=== PATIENT | female | born 1960 | race African-American/Black ===

== ENCOUNTER 2020-07-08 20:09 | Emergency (ER) | payer MEDICAID, SELFPAY ==
[2020-07-08 21:25] VITALS: BP 137/70; PULSE 93; RESP 18; TEMP 37.3; O2SAT 94; BMI 40.3
[2020-07-08 23:29] VITALS: BP 160/76; PULSE 81; RESP 20; O2SAT 93
[2020-07-08 23:48] VITALS: BP 160/76; PULSE 82; RESP 14; O2SAT 94
--- NOTE | 2020-07-09 00:12 | W.ED.URI ---
HPI - URI/Sore Throat General: Chief Complaint: Upper Respiratory Infection Stated Complaint: Sinus pain, congestion Time Seen by Provider: 07/08/20 23:32 Source: patient Mode of arrival: ambulatory Limitations: no limitations History of Present Illness: HPI Narrative: Patient is a 59-year-old female who presents to ED today with a complaint of sinus pain/pressure, ear pain/pressure, postnasal drainage, and a productive cough. Patient tells me she normally suffers from chronic allergic rhinitis that she treats with Claritin. She has not been running fevers. She is concerned she could have pneumonia. She is not complaining of chest pain or shortness of breath. She states drainage seems to be worse when she lies down. Denies sore throat. Denies fevers. MD elicited complaint: cough, nasal congestion and sinus pain Onset (ago): day(s) Consistency: constant Description of mucous: watery Able to tolerate fluids by mouth: Yes Associated symptoms: Reports ear or mastoid pain, nasal congestion and sinus pain; Deny abdominal pain, chills, chest pain, diarrhea, epistaxis, fever(s), headache(s), nausea or vomiting Treatments prior to arrival: none Review of Systems Const: Denies: fever(s), chills, body aches, change in appetite, change in weight, fatigue, malaise or night sweats Eyes: Denies: change in vision, blurry vision, photophobia, eye discomfort, eye discharge or seeing flashes ENMT: Reports: ear or mastoid pain, nasal congestion, post nasal drip and sinus pain; Denies: throat pain, enlarged tonsils, odynophagia, swelling of lips/tongue, oral sores, ear discharge, tinnitus, nasal discharge or epistaxis Card: Denies: chest pain, edema, swelling of feet/ankles or orthopnea Resp: Reports: productive cough and chest congestion; Denies: dyspnea, non-productive cough, wheezing, stridor, pain on inspiration or hemoptysis GI: Denies: abdominal pain, nausea, vomiting or diarrhea Musc: Denies: neck pain Skin/Breast: Denies: rash Neuro: Denies: headache(s) All/Imm: Denies: facial swelling or seasonal rhinorrhea Physical Exam Const: COMMON NORMALS: no acute distress, patient oriented x3, no limitations and alert GENERAL APPEARANCE: cooperative NUTRITIONAL APPEARANCE: obese ORIENTATION/CONSCIOUSNESS: Yes awake, Yes oriented to person, Yes oriented to place and Yes oriented to time HENMT: COMMON NORMALS: normocephalic, atraumatic, hearing grossly normal bilaterally, external ears normal, EAC's normal, Normal external nose present, Normal nasal mucous membranes and turbinates present and moist oral mucous membranes HEAD & SCALP: normal to inspection, normocephalic and atraumatic FACE & SINUS: normal facial exam and sinus tenderness frontal, ethmoid and maxillary NOSE: Normal external nose present, Normal nares present and Normal nasal mucous membranes and turbinates present EXTERNAL EAR: Yes external ears normal, Yes mastoids normal and Yes no periauricular adenopathy EXTERNAL AUDITORY CANAL: EAC's normal TYMPANIC MEMBRANE: TM abnormal (mild redness to L TM; serous otitis on R; otherwise normal) TEETH & GINGIVA: Yes edentulous THROAT: posterior oropharynx normal, tonsils normal and uvula midline Eye: COMMON NORMALS: Equal, round and reactive pupils present, EOMs intact bilaterally and conjunctivae normal GENERAL EYE: appearance normal, both eyes and all related structures CONJUNCTIVA: Yes conjunctivae normal PUPIL: Yes Equal, round and reactive pupils present Neck/C-Spine: COMMON NORMALS: full ROM, no lymphadenopathy and no meningeal signs Resp: COMMON NORMALS: normal respiratory effort and clear to auscultation bilaterally AUSCULTATION: clear to auscultation bilaterally Cardio: COMMON NORMALS: regular rate and regular rhythm RATE: regular rate Extremity: COMMON NORMALS: no calf tenderness and no pedal edema GENERAL: Yes normal exam except as noted Neuro: COMMON NORMALS: patient oriented x3 SENSORIUM/ORIENTATION: Yes alert, Yes oriented to person, Yes oriented to place and Yes oriented to time MENINGEAL SIGNS: Yes no meningeal signs Skin: COMMON NORMALS: no rashes or lesions noted GENERAL SKIN EXAM: no rashes or lesions noted Course Vital Signs: Vital signs: Vital Signs Temperature 99.2 F 07/08/20 21:25 Pulse Rate 82 07/08/20 23:48 Respiratory Rate 14 07/08/20 23:48 Blood Pressure 160/76 07/08/20 23:48 Pulse Oximetry 94 07/08/20 23:48 MDM - URI/Sore Throat Imaging Data^: CXR: Radiologist's impression: [address] [address] XRay Report Signed Patient: Valentina Chavez #: [id number] : 1960Acct#:[id number] Age/Sex: 59 / FADM Date: 07/08/20 Loc: ERRoom/Bed: Attending Dr: Ordering Provider/Ordering MD: Shreya Talamantes Date of Service: 07/09/20 Procedure(s): XR chest 1V portable [id number] Accession Number(s): [id number] Report Number: [id number] PROCEDURE INFORMATION: Exam: XR Chest, 1 View Exam date and time: 07/09/2020 12:23 AM Age: 59 years old Clinical indication: Cough TECHNIQUE: Imaging protocol: XR of the chest Views: 1 view. COMPARISON: No relevant prior studies available. FINDINGS: Lungs: Lungs are clear. Pleural space: There is no pleural effusion or pneumothorax. Heart/Mediastinum: There is mild enlargement of the cardiac silhouette. Bones/joints: Bones are unremarkable. XR/XR chest 1V portable [id number] IMPRESSION: No acute findings. Dictated By:Nilo Navarro MD Signed By:Nilo Navarro MDSigned Date/Time:07/09/2056 DD/ Discharge Plan Discharge Condition: Stable Coding Level of Care Code ED Diathermy Equipment Repairer for Chg Fwd Exam Comprehensive
[2020-07-09 01:37] VITALS: BP 129/73; PULSE 74; RESP 17; O2SAT 96
== END 2020-07-09 01:39 | disposition home or self-care (01) ==
PROVIDERS: Emergency Provider Physician Assistant
DX: R09.82 Postnasal drip (principal); R05 Cough
CPT/HCPCS: 12345; 71045; 99281; 99282

== ENCOUNTER 2021-02-13 20:55 | Emergency (ER) | payer MEDICAID, SELFPAY ==
[2021-02-13 22:31] VITALS: BP 196/101; PULSE 70; RESP 16; TEMP 37; O2SAT 94; BMI 39.5
--- NOTE | 2021-02-14 03:02 | XRR_ITS ---
PROCEDURE INFORMATION: Exam: XR Chest Exam date and time: 02/14/2021 3:02 AM Age: 60 years old Clinical indication: Cough TECHNIQUE: Imaging protocol: XR of the chest. Views: 1 view. COMPARISON: CR XR chest 1V portable [id number] 07/09/2020 12:20 AM FINDINGS: Lungs: Interval slightly increased markings in the medial right lung base. Short horizontal stranding density in the left lateral lung base again evident. No obvious Adalberto B lines. Still no consolidation. Pleural spaces: Still no pneumothorax or apparent pleural fluid. Heart/Mediastinum: Continued mild cardiomegaly. Left atrial enlargement still suspected. Vasculature: Aortic elongation again evident. Bones/joints: Screw and plate fixation device in the cervical spine. No apparent acute bony disease. XR/XR chest 1V portable [id number] IMPRESSION: 1. Continued mild cardiomegaly and possible left atrial enlargement. No obvious interval pulmonary edema. 2. Interval slightly increased markings in the medial right lung base questionably due to atelectasis. Minimal atelectasis or scar in the left lateral lung base still present. Other findings detailed above.
--- NOTE | 2021-02-14 03:02 | CTR_ITS ---
PROCEDURE INFORMATION: Exam: CT Head Without Contrast Exam date and time: 02/14/2021 3:02 AM Age: 60 years old Clinical indication: Prior surgery; Surgery type: Cervical fusion; Patient HX: Headache with pain turning neck side to side. ; Additional info: JEAN TECHNIQUE: Imaging protocol: Computed tomography of the head without contrast. Radiation optimization: All CT scans at this facility use at least one of these dose optimization techniques: automated exposure control; mA and/or kV adjustment per patient size (includes targeted exams where dose is matched to clinical indication); or iterative reconstruction. COMPARISON: No relevant prior studies available. RADIATION DOSE METRICS: Total DLP (mGy-cm): 879.31 FINDINGS: Limitations: Streak artifacts. Brain: Prominently increased CSF in the sella. One small focus of decreased density in the right centrum semiovale subjacent to the superior insular cortex; no mass effect in this area. No other apparent white matter disease. No suggestion of edema in the brain. No intracranial hemorrhage. Cerebral ventricles: No ventriculomegaly. Paranasal sinuses: Visualized sinuses unremarkable. Mastoid air cells: No suggestion of mastoid disease. Bones/joints: Old right medial orbital blowout fracture. No acute skull fracture. Soft tissues: Unremarkable. CT/CT head wo con* [id number] IMPRESSION: 1. No acute findings. One small focus of probable chronic ischemic change in the right centrum semiovale. 2. Probable empty sella. Old right medial orbital blowout fracture. Other findings detailed above. Radiation Dose CTDIVOL = (mGy): DLP = 879.31 (mGy-cm)
--- NOTE | 2021-02-14 03:03 | ECG_ITS ---
[facility] Test Date: 2021-02-14 Pat Name: Geno Chavez Department: Room: Gender: Female Cloth Measurer: : 1960 Requested By: Dave Wilson Order Number: [id number] Reading MD: LINDSEY PENNINGTON Measurements Intervals [place] Rate: 66 P: 82 NM: 166 QRS: 55 QRSD: 82 T: 59 QT: 396 QTc: 415 Interpretive Statements SINUS RHYTHM No previous ECG available for comparison Electronically Signed On 02-14-2021 22:20:45 CDT by LINDSEY PENNINGTON [id number]
--- NOTE | 2021-02-14 03:22 | ED_ITS ---
HPI - Headache General: Chief Complaint: Headache Stated Complaint: Headache can't turn neck Time Seen by Provider: 02/14/21 02:54 Source: patient Mode of arrival: ambulatory Limitations: no limitations History of Present Illness: HPI Narrative: 60-year-old female states that she woke up 3 days ago with left-sided neck pain. She states she felt like she had slept wrong and has had stiffness in her neck since then. States that it hurts anytime she tries to turn her head to the left and with palpation. States she is also developed a slight headache. States the pain goes into her shoulder as well. She states her blood pressure is high and states that her blood pressure gets high like this when she is in pain. She rates her neck pain a 7 out of 10 currently. Associated symptoms: Deny chest pain, fever(s), nausea, rash or vomiting Review of Systems Const: Denies: fever(s), chills, body aches or change in appetite Eyes: Denies: blurry vision or eye discomfort ENMT: Denies: throat pain or dental pain Card: Denies: chest pain Resp: Denies: dyspnea GI: Denies: abdominal pain, nausea, vomiting or diarrhea : Denies: dysuria Musc: Reports: neck pain Skin/Breast: Denies: rash Neuro: Reports: headache(s) Psych: Denies: depression Domenic/Lymph: Denies: easy bruising All/Imm: Denies: urticaria Physical Exam Const: COMMON NORMALS: no acute distress, patient oriented x3 and healthy appearing HENMT: COMMON NORMALS: normocephalic and atraumatic HEAD & SCALP: normocephalic and atraumatic Eye: COMMON NORMALS: Equal, round and reactive pupils present and EOMs intact bilaterally PUPIL: Yes Equal, round and reactive pupils present Neck/C-Spine: COMMON NORMALS: full ROM and supple OTHER: Point tender over left trapezius no midline neck tenderness Chest: COMMONS NORMALS: normal inspection of the chest and normal palpation of entire chest wall Resp: COMMON NORMALS: normal respiratory effort, No retractions, No use of accessory muscles and clear to auscultation bilaterally AUSCULTATION: clear to auscultation bilaterally Cardio: COMMON NORMALS: regular rate, regular rhythm and No murmurs present (Cardio) RATE: regular rate RHYTHM: regular rhythm GI: COMMON NORMALS: Normal to inspection, nondistended, normoactive bowel sounds present, Soft to palpation, non-tender and no masses PALPATION: Yes Soft to palpation Extremity: COMMON NORMALS: normal to inspection and full ROM Neuro: COMMON NORMALS: patient oriented x3, moves all extremities and no focal motor deficits Psych: COMMON NORMALS: mental status grossly normal, Normal thought process present and cooperative THOUGHT PROCESS: Normal thought process present Skin: COMMON NORMALS: no rashes or lesions noted and no wounds GENERAL SKIN EXAM: no rashes or lesions noted Course Vital Signs: Vital signs: Vital Signs Temperature 98.6 F 02/13/21 22:31 Pulse Rate 70 02/13/21 22:31 Respiratory Rate 22 H 02/14/21 03:39 Blood Pressure 196/101 02/13/21 22:31 Pulse Oximetry 94 02/13/21 22:31 MDM - Headache MDM Narrative: Medical decision making narrative: Patient presents with a left neck strain likely from sleeping on it wrong. She is point tender on her neck. She has no signs of meningitis or subarachnoid hemorrhage. She has no signs of carotid dissection. She feels much improved here and she is to ice her neck and will place her on Naprosyn Robaxin. Her blood pressure is improved here as well and is currently at 146/92. She is to follow-up with PCP and return if worsening. Lab Data: Labs: Lab Results 02/14/21 02/14/21 Range/Units 03:40 03:40 WBC 11.0 H (4.0-10.0) 10^3/ uL RBC 4.75 (4.1-5.3) 10^6/u L Hgb 13.0 (11.5-15.3) g/dL Hct 41.8 (37.0-47.0) % MCV 88.0 (81-99) fl MCH 27.4 L (28.0-34.0) pg MCHC 31.1 (30.0-36.0) g/dL RDW 15.3 H (12.1-15.1) % Plt Count 273 (130-400) 10^3/c mm MPV 9.8 (7.4-10.4) fL Neut % (Auto) 72.8 % Lymph % (Auto) 17.9 % [place] % (Auto) 6.5 % Eos % (Auto) 2.2 % Baso % (Auto) 0.2 % Neut # (Auto) 8.04 H (1.8-7.7) 10^3/u L Lymph # (Auto) 2.0 (0.8-4.8) 10^3/u L [place] # (Auto) 0.7 (0.2-0.9) 10^3/u L Eos # (Auto) 0.2 (0.0-0.8) 10^3/u L Baso # (Auto) 0.0 (0.0-0.1) 10^3/u L Nucleated RBC % (a uto) 0 % Nucleated RBCs # 0.0 /100WBC Sodium 138 (136-145) mmol/L Potassium 4.5 (3.5-5.1) mmol/L Chloride 101 (98-107) mmol/L Carbon Dioxide 29 (22-29) mmol/L Anion Gap 12.5 (5-19) BUN 12 (8-23) mg/dL Creatinine 0.5 (0.5-0.9) mg/dL GFR Calculation 151.8 H (90-130) mL/min Glucose 118 H (65-115) mg/dL Calculated Osmolal ity 287 (285-295) mOsm/k g Calcium 9.0 (8.5-10.5) mg/dL Total Bilirubin 0.4 (0.15-1.2) mg/dL AST 10 (0-32) U/L ALT 6 (0-33) U/L Alkaline Phosphata se 104 (35-105) IU/L Total Protein 7.8 (6.6-8.7) g/dL Albumin 3.9 (3.5-5.2) g/dL Globulin 3.9 (1.3-4.6) g/dL Imaging Data^: CXR: Attestation: I personally reviewed and interpreted this imaging study as follows: My impression: no acute abnormality CT Head: Attestation: I personally reviewed and interpreted this imaging study as follows: Radiologist's impression: [address] [address] [address] Scan Report Signed Patient: Geno Chavez Unit #: [id number] : 1960 Age/Sex: 60 / F ADM Date: 02/13/21 Loc: ER Room/Bed: Attending Dr: Ordering Provider/Ordering MD: Dave Wilson MD Date of Service: 02/14/21 Procedure(s): CT head wo con* [id number] Accession Number(s): [id number] Report Number: [id number] PROCEDURE INFORMATION: Exam: CT Head Without Contrast Exam date and time: 02/14/2021 3:02 AM Age: 60 years old Clinical indication: Prior surgery; Surgery type: Cervical fusion; Patient HX: Headache with pain turning neck side to side. ; Additional info: JEAN TECHNIQUE: Imaging protocol: Computed tomography of the head without contrast. Radiation optimization: All CT scans at this facility use at least one of these dose optimization techniques: automated exposure control; mA and/or kV adjustment per patient size (includes targeted exams where dose is matched to clinical indication); or iterative reconstruction. COMPARISON: No relevant prior studies available. RADIATION DOSE METRICS: Total DLP (mGy-cm): 879.31 FINDINGS: Limitations: Streak artifacts. Brain: Prominently increased CSF in the sella. One small focus of decreased density in the right centrum semiovale subjacent to the superior insular cortex; no mass effect in this area. No other apparent white matter disease. No suggestion of edema in the brain. No intracranial hemorrhage. Cerebral ventricles: No ventriculomegaly. Paranasal sinuses: Visualized sinuses unremarkable. Mastoid air cells: No suggestion of mastoid disease. Bones/joints: Old right medial orbital blowout fracture. No acute skull fracture. Soft tissues: Unremarkable. CT/CT head wo con* [id number] IMPRESSION: 1. No acute findings. One small focus of probable chronic ischemic change in the right centrum semiovale. 2. Probable empty sella. Old right medial orbital blowout fracture. Other findings detailed above. Radiation Dose CTDIVOL = (mGy): DLP = 879.31 (mGy-cm) Dictated By: Miriam Field MD Signed By: Miriam Field MD Signed Date/Time: 02/14/21 0500 DD/ 0459 EKG Data^: EKG 1: Attestation: I personally reviewed and interpreted this EKG as follows: EKG interpretation date: 02/14/21 EKG interpretation time: 04:02 Interpretation: nsr hr [address] or t wave abnormalities qrs 82 qtc 409 Discharge Plan Discharge Patient Disposition: Home Clinical Impression: Headache Qualifiers: Headache type: unspecified Headache chronicity pattern: unspecified pattern Intractability: not intractable Qualified Code(s): R51.9 - Headache, unspecified Neck muscle strain Qualifiers: Encounter type: initial encounter Qualified Code(s): S16.1XXA - Strain of muscle, fascia and tendon at neck level, initial encounter Condition: Stable Prescriptions: New methocarbamol 750 mg tablet 750 mg PO Q6H PRN (Reason: spasms) Qty: 20 RF: 0 Naprosyn 500 mg tablet 500 mg PO BID PRN (Reason: pain) Qty: 20 RF: 0 Discharge Orders: Discharge ED (Routine); Ordered 02/14/21 Ordered By: Dave Wilson Discharge Diet: Advance as tolerated Discharge Activity: Resume usual activity Patient Instructions: Spasmodic Torticollis (ED), Cervical Sprain (ED) Coding Level of Care Code ED Laundry Or Dry Cleaners Counter Clerk for Chg Fwd Exam Comprehensive
[2021-02-14] MEDS: ondansetron 2 mg/ML SDV 2 mL 4 MG IVP (03:33)
[2021-02-14 03:39] VITALS: RESP 22
[2021-02-14] MEDS: HYDROmorphone 1 mg/mL INJ 1 mL IVP (03:39)
[2021-02-14 04:06] LABS: Basophils % 0.2 %; Eosinophils # 0.2 10^3/uL (0.0-0.8); Eosinophils % 2.2 %; Hematocrit 41.8 % (37.0-47.0); Lymphocytes % 17.9 %; Mean Corpuscular HGB Conc 31.1 g/dL (30.0-36.0); Mean Corpuscular Hemoglobin 27.4 pg (28.0-34.0); Mean Platelet Volume 9.8 fL (7.4-10.4); Monocytes # 0.7 10^3/uL (0.2-0.9); Monocytes % 6.5 %; Neutrophils # 8.04 10^3/uL (1.8-7.7); Neutrophils % 72.8 %; Nucleated Red Blood Cells % 0 %; Platelet Count 273 10^3/cmm (130-400); Red Blood Count 4.75 10^6/uL (4.1-5.3); Red Cell Distribution Width 15.3 % (12.1-15.1)
[2021-02-14 04:34] LABS: Alanine Aminotransferase 6 U/L (0-33); Albumin Level 3.9 g/dL (3.5-5.2); Alkaline Phosphatase 104 IU/L (35-105); Anion Gap 12.5 (5-19); Aspartate Amino Transferase 10 U/L (0-32); Blood Urea Nitrogen 12 mg/dL (8-23); Carbon Dioxide 29 mmol/L (22-29); Chloride 101 mmol/L (98-107); Creatinine Clr Calc Pharmacy 149.2819; Globulin 3.9 g/dL (1.3-4.6); Glomerular Filtration Rate 151.8 mL/min (90-130); Glucose 118 mg/dL (65-115); Osmolality Calculated 287 mOsm/kg (285-295); Potassium 4.5 mmol/L (3.5-5.1); Sodium 138 mmol/L (136-145); Total Bilirubin 0.4 mg/dL (0.15-1.2); Total Protein 7.8 g/dL (6.6-8.7)
[2021-02-14 05:37] VITALS: BP 142/88; PULSE 82; RESP 20; TEMP 37.3; O2SAT 98
[2021-02-14 06:07] VITALS: BP 148/85; PULSE 80; RESP 20; TEMP 37.3; O2SAT 97
== END 2021-02-14 05:40 | disposition home or self-care (01) ==
PROVIDERS: Emergency Provider Emergency Medicine
DX: R51.9 Headache, unspecified (principal); S16.1XXA Strain of muscle, fascia and tendon at neck level, initial encounter; X58.XXXA Exposure to other specified factors, initial encounter
CPT/HCPCS: 70450; 71045; 80053; 85025; 93005; 96374; 96375; 99283; J1170; J2405

== ENCOUNTER 2021-07-30 20:36 | Emergency (ER) | payer MEDICAID, SELFPAY ==
[2021-07-30 20:57] VITALS: BP 102/55; PULSE 87; RESP 20; TEMP 36.8; O2SAT 96; BMI 41.0
--- NOTE | 2021-07-30 21:15 | XRR_ITS ---
PROCEDURE INFORMATION: Exam: XR Left Shoulder Exam date and time: 07/30/2021 9:15 PM Age: 60 years old Clinical indication: Pain; Shoulder; Left; Additional info: Fall TECHNIQUE: Imaging protocol: XR Left shoulder. Views: 2 or more views. COMPARISON: CR XR chest 1V portable [id number] 02/14/2021 3:59 AM FINDINGS: Bones/joints: Moderate AC osteoarthritis. No acute fracture or dislocation. Soft tissues: Normal. XR/XR shoulder LT min 2V* [id number] IMPRESSION: 1. No acute fracture or dislocation. 2. Moderate AC osteoarthritis.
--- NOTE | 2021-07-30 21:15 | CTR_ITS ---
PROCEDURE INFORMATION: Exam: CT Head Without Contrast Exam date and time: 07/30/2021 9:15 PM Age: 60 years old Clinical indication: Injury or trauma; Blunt trauma (contusions or hematomas); Patient HX: Headache after fall 4 days ago; Additional info: JEAN TECHNIQUE: Imaging protocol: Computed tomography of the head without contrast. Radiation optimization: All CT scans at this facility use at least one of these dose optimization techniques: automated exposure control; mA and/or kV adjustment per patient size (includes targeted exams where dose is matched to clinical indication); or iterative reconstruction. COMPARISON: CT head wo con* [id number] 02/14/2021 4:11 AM RADIATION DOSE METRICS: Total DLP (mGy-cm): 647.67 FINDINGS: Brain: No acute infarct or hemorrhage. Cerebral ventricles: No ventriculomegaly. Paranasal sinuses: Paranasal sinuses are clear. No air-fluid level. Mastoid air cells: Visualized mastoid air cells are clear. Bones/joints: No calvarial or skull base fracture. Soft tissues: Unremarkable. CT/CT head wo con* [id number] IMPRESSION: 1. No acute infarct or hemorrhage. 2. No calvarial or skull base fracture.
--- NOTE | 2021-07-31 01:19 | W.ED.GENADLT ---
HPI - General Adult General: Chief complaint: General Medical Stated complaint: Injury; Head,Shoulder\Arm SOB Blood Pressure irreg Time Seen by Provider: 07/31/21 01:15 Source: patient Mode of arrival: ambulatory Limitations: no limitations History of Present Illness: 60-year-old female who states that she fell on ice on Thursday states she hit her left shoulder and her head when she had fell. States she been having some headaches since then some slight nausea vomiting and some left shoulder pain from where she had hit. States she is also been around some people with COVID would like to be tested for COVID she has had some chills but denies any cough denies any shortness of breath denies any diarrhea Associated symptoms: Reports headache(s), nausea and vomiting; Deny chest pain, dyspnea or rash Review of Systems Const: Reports: body aches; Denies: fever(s), chills or change in appetite Eyes: Denies: blurry vision or eye discomfort ENMT: Denies: throat pain or dental pain Card: Denies: chest pain Resp: Denies: dyspnea GI: Reports: nausea and vomiting; Denies: abdominal pain or diarrhea : Denies: dysuria Musc: Denies: neck pain or back pain Skin/Breast: Denies: rash Neuro: Reports: headache(s) Psych: Denies: depression Domenic/Lymph: Denies: easy bruising All/Imm: Denies: urticaria Physical Exam Const: COMMON NORMALS: no acute distress, patient oriented x3 and healthy appearing HENMT: COMMON NORMALS: normocephalic and atraumatic HEAD & SCALP: normocephalic and atraumatic Eye: COMMON NORMALS: Equal, round and reactive pupils present and EOMs intact bilaterally PUPIL: Yes Equal, round and reactive pupils present Neck/C-Spine: COMMON NORMALS: full ROM and supple Chest: COMMONS NORMALS: normal inspection of the chest and normal palpation of entire chest wall Resp: COMMON NORMALS: normal respiratory effort, No retractions, No use of accessory muscles and clear to auscultation bilaterally AUSCULTATION: clear to auscultation bilaterally Cardio: COMMON NORMALS: regular rate, regular rhythm and No murmurs present (Cardio) RATE: regular rate RHYTHM: regular rhythm GI: COMMON NORMALS: Normal to inspection, nondistended, normoactive bowel sounds present, Soft to palpation, non-tender and no masses PALPATION: Yes Soft to palpation Extremity: COMMON NORMALS: normal to inspection and full ROM Neuro: COMMON NORMALS: patient oriented x3, moves all extremities and no focal motor deficits Psych: COMMON NORMALS: mental status grossly normal, Normal thought process present and cooperative THOUGHT PROCESS: Normal thought process present Skin: COMMON NORMALS: no rashes or lesions noted and no wounds GENERAL SKIN EXAM: no rashes or lesions noted Course Vital Signs: Vital signs: Vital Signs Temperature 98.2 F 07/30/21 20:57 Pulse Rate 87 07/30/21 20:57 Respiratory Rate 20 H 07/30/21 20:57 Blood Pressure 102/55 07/30/21 20:57 Pulse Oximetry 96 07/30/21 20:57 MDM - General Adult Medical Decision Making Patient presents here with closed head injury from a fall also some vomiting at home she states she believes she also may have a sinus infection would like a Z-Mau will place her on nausea medicine head CT and shoulder x-ray are normal she is stable for discharge she return if worsening. Lab Data Radiology Impressions Head CT 07/30/21 21:15 IMPRESSION: 1. No acute infarct or hemorrhage. 2. No calvarial or skull base fracture. Shoulder X-Ray 07/30/21 21:15 IMPRESSION: 1. No acute fracture or dislocation. 2. Moderate AC osteoarthritis. Discharge Plan Discharge Patient Disposition: Home Clinical Impression: Closed head injury Condition: Stable Prescriptions: New azithromycin 250 mg tablet See Rx Instructions .ROUTE .COMPLEX Qty: 6 0RF Rx Instructions: take 500 mg today (day 1), then 250 mg for 4 days (days 2-5) ondansetron 4 mg tablet,disintegrating 4 mg PO Q6H PRN (Reason: nausea and vomiting) Qty: 14 0RF No Action methocarbamol 750 mg tablet 750 mg PO Q6H PRN (Reason: spasms) Qty: 20 0RF Naprosyn 500 mg tablet 500 mg PO BID PRN (Reason: pain) Qty: 20 0RF Discharge Orders: Discharge ED (Routine); Ordered 07/31/21 Ordered By: Dave Wilson Discharge Diet: Advance as tolerated Discharge Activity: Resume usual activity Patient Instructions: Head Injury (ED) Coding Level of Care Code ED Laboratory Engineer for Pedrito Spence
[2021-07-31] MEDS: HYDROcodone-acetaminophen 5-325 mg Tablet 1 TAB PO (01:27)
[2021-07-31 01:37] VITALS: PULSE 64; RESP 20; O2SAT 93
[2021-08-01 13:02] LABS: Quest SARS-CoV-2 RNA NOT DETECTED (NOT DETECTED)
--- NOTE | 2021-08-01 18:07 | PC.NURSE ---
Has a non working number
== END 2021-07-31 01:48 | disposition home or self-care (01) ==
PROVIDERS: Emergency Provider Emergency Medicine
DX: S09.8XXA Other specified injuries of head, initial encounter (principal); W00.0XXA Fall on same level due to ice and snow, initial encounter; Z20.822 Contact with and (suspected) exposure to COVID-19
CPT/HCPCS: 70450; 73030; 87635; 99283

== ENCOUNTER 2022-12-13 12:35 | Outpatient (CLI) | payer MEDICAID, SELFPAY ==
--- NOTE | 2022-12-13 12:55 | XRR_ITS ---
PROCEDURE INFORMATION: Exam: XR Right Hand Exam date and time: 12/13/2022 12:56 PM Age: 62 years old Clinical indication: Pain; Hand; Right; Additional info: Right hand injury TECHNIQUE: Imaging protocol: Radiologic exam of the right hand. Views: 3 or more views. COMPARISON: No relevant prior studies available. FINDINGS: Bones/joints: Normal. Soft tissues: Normal. XR/XR hand RT min 3V* [id number] IMPRESSION: No acute findings.
== END 2022-12-13 12:36 | disposition home or self-care (01) ==
PROVIDERS: Visit Provider Registered Nurse Neonatal Intensive Care
DX: S69.91XA Unspecified injury of right wrist, hand and finger(s), initial encounter (principal); X58.XXXA Exposure to other specified factors, initial encounter
CPT/HCPCS: 73130

== ENCOUNTER 2024-06-03 14:26 | Emergency (ER) | payer SELFPAY ==
--- NOTE | 2024-06-03 14:31 | XR_ITS ---
WS: [id number] Exam: XR hand RT min 3V* [id number] Date/Time of Exam: 06/03/2024 2:36 PM Reason For Exam: injury Comparison 12/13/2022. No acute fracture. A ring obscures parts of the fourth proximal phalanx. Mild degenerative changes in the IP joints. Soft tissues are unremarkable. XR/XR hand RT min 3V* [id number] IMPRESSION: 1. No fracture or other significant finding.
[2024-06-03 14:58] VITALS: BP 194/97; PULSE 125; RESP 18; TEMP 36.7; O2SAT 96; BMI 33.3
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
[2024-06-03 17:51] VITALS: BP 155/99; PULSE 105; O2SAT 98
[2024-06-03 18:05] VITALS: BP 155/99; PULSE 105; O2SAT 98
--- NOTE | 2024-06-06 07:34 | DCPLANNER ---
greta cordero er f/u
== END 2024-06-03 18:05 | disposition home or self-care (01) ==
PROVIDERS: Emergency Provider Physician Assistant
DX: M54.2 Cervicalgia (principal); M25.531 Pain in right wrist; Z79.82 Long term (current) use of aspirin
CPT/HCPCS: 73130; 99283

== ENCOUNTER → 2024-08-30 14:59 | Outpatient (BNVA) | payer MEDICARE, SELFPAY | PROVIDERS: PCP Family Medicine; Visit Provider Family Medicine | DX: I10 Essential (primary) hypertension (principal); E11.9 Type 2 diabetes mellitus without complications | CPT/HCPCS: 80053; 80061; 83036; 84439; 84443; 85025 ==

== ENCOUNTER 2024-09-22 09:14 | Outpatient (CLI) | payer MEDICARE, SELFPAY ==
--- NOTE | 2024-09-22 09:00 | CT_ITS ---
WS: [id number] LDCT LUNG CANCER SCREENING HISTORY: screening TECHNIQUE: Axial imaging performed from the apices to 1 cm below the costophrenic angles. Coronal and sagittal reformats are submitted with axial MIP series. All CT scans at [facility] use at least one of these dose optimization techniques: automated exposure control; mA and/or kV adjustment per patient size (includes targeted exams where dose is matched to clinical indication); or iterative reconstruction. DLP: 113.31 mGy.cm DIvol: Mean CTDIvol: 2.80 (mGy) COMPARISON: None available. Diagnostic quality: Satisfactory Lungs: Linear atelectasis at the lingula. No pulmonary mass or nodule identified. No endobronchial lesions. Heart: Moderate cardiomegaly. Coronary artery calcifications.. Other findings: Pulmonary hypertension. Mild atherosclerosis aorta. No mediastinal or hilar adenopathy. Very mild thickening of the LEFT adrenal gland. CT/CT lung screening [id number] IMPRESSION: LUNG-RADS: 1S-Negative with Significant Findings FOLLOW UP: 12 Month: Continue annual screening with LDCT OTHER FINDINGS (S MODIFIER): Pulmonary hypertension.
== END 2024-09-22 09:15 | disposition home or self-care (01) ==
LOC: RAD 09:15
PROVIDERS: PCP Family Medicine; Visit Provider Family Medicine
DX: Z12.2 Encounter for screening for malignant neoplasm of respiratory organs (principal); F17.219 Nicotine dependence, cigarettes, with unspecified nicotine-induced disorders; J98.11 Atelectasis; I51.7 Cardiomegaly; I25.10 Atherosclerotic heart disease of native coronary artery without angina pectoris; I27.20 Pulmonary hypertension, unspecified; I70.0 Atherosclerosis of aorta; E27.8 Other specified disorders of adrenal gland
CPT/HCPCS: 71271

== ENCOUNTER → 2024-11-02 10:03 | Outpatient (BNVA) | payer MEDICARE, SELFPAY | PROVIDERS: PCP Family Medicine; Visit Provider Family Medicine | DX: Z12.4 Encounter for screening for malignant neoplasm of cervix (principal) | CPT/HCPCS: 87624 ==

== ENCOUNTER 2024-11-21 15:01 | Inpatient (IN) | payer MEDICARE, SELFPAY ==
[2024-11-21] VITALS (9 sets, daily range): BP systolic 122–170; BP diastolic 79–105; PULSE 89–101; RESP 16–22; TEMP 36.6–36.9; O2SAT 90–94; BMI 35.5
--- NOTE | 2024-11-21 15:18 | ECG_ITS ---
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 Measurements Intervals [place] Rate: 85 P: 67 VT: 161 QRS: 37 QRSD: 85 T: -18 QT: 375 QTc: 448 Interpretive Statements SINUS RHYTHM NONSPECIFIC ST & T-WAVE ABNORMALITY No previous ECG available for comparison Electronically Signed On 11-22-2024 11:36:24 CDT by Donta Robledo M.D. [email or web address]
--- NOTE | 2024-11-21 15:18 | XRR_ITS ---
PROCEDURE INFORMATION: Exam: XR Chest Exam date and time: 11/21/2024 3:20 PM Age: 64 years old Clinical indication: Pain; Angina pectoris; Additional info: Cp TECHNIQUE: Imaging protocol: Radiologic exam of the chest. Views: 1 view. COMPARISON: CT lung screening [id number] 09/22/2024 9:45 AM FINDINGS: Lungs: Mild hazy opacities of the lung bases. Pleural spaces: Unremarkable. No pleural effusion. No pneumothorax. Heart/Mediastinum: Stable moderate cardiomegaly. Bones/joints: Unremarkable. XR/XR chest 1V portable [id number] IMPRESSION: 1. Mild bibasilar opacities favor atelectasis. Infiltrate not excluded in the correct clinical setting. 2. Cardiomegaly.
--- NOTE | 2024-11-21 15:28 | ED_ITS ---
HPI - Weakness 2 General: Chief complaint: Weakness Stated complaint: sob Time Seen by Provider: 11/21/24 15:13 Source: patient Mode of arrival: ambulatory Limitations: no limitations History of Present Illness: 64-year-old female history of congestive heart failure states that over the last few weeks she had been having some dyspnea states she did have some generalized weakness as well. States dyspnea seems to be worse exertion she has no dyspnea in the room talking in full sentences pulse ox is normal. She has had some mild chest pains on the right side of her chest denies any vomiting or diarrhea Associated symptoms: Reports chest pain; Denies chills, dysuria, fever(s), headache(s), nausea or vomiting Review of Systems 2 Const: Denies: fever(s), chills, body aches or change in appetite ENMT: Denies: throat pain or dental pain Card: Reports: chest pain Resp: Reports: dyspnea GI: Denies: abdominal pain, nausea, vomiting or diarrhea : Denies: dysuria Musc: Denies: neck pain or back pain Skin/Breast: Denies: rash Neuro: Denies: headache(s) PFSH ED 2 PFSH: Medical History Right hand pain Trigger finger Moderate tobacco use disorder Panic anxiety syndrome Anxiety Moderate major depression Cannabis use disorder Obesity (BMI 35.0-39.9 without comorbidity) URI (upper respiratory infection) Sinusitis chronic, frontal Allergic rhinitis due to allergen Surgical History Hx of neck surgery two surgeries in mid Social History Smoking and tobacco/nicotine status: current every day tobacco/nicotine user cigarettes [ Other cigarette details: / PPD, 20PY] Alcohol intake: never Substance/Drug Use: current Substance/Drug use frequency: daily Physical Exam 2 Const: COMMON NORMALS: no acute distress, patient oriented x3 and healthy appearing HENMT: COMMON NORMALS: normocephalic and atraumatic HEAD & SCALP: n ormocephalic and atraumatic Eye: COMMON NORMALS: Equal, round and reactive pupils present and EOMs intact bilaterally PUPIL: Yes Equal, round and reactive pupils present Neck/C-Spine: COMMON NORMALS: full ROM and supple Chest: COMMONS NORMALS: normal inspection of the chest and normal palpation of entire chest wall Resp: COMMON NORMALS: normal respiratory effort, No retractions, No use of accessory muscles and clear to auscultation bilaterally AUSCULTATION: clear to auscultation bilaterally Cardio: COMMON NORMALS: regular rate, regular rhythm and No murmurs present (Cardio) RATE: regular rate RHYTHM: regular rhythm GI: COMMON NORMALS: Normal to inspection, nondistended, normoactive bowel sounds present, Soft to palpation, non-tender and no masses PALPATION: Yes Soft to palpation Extremity: COMMON NORMALS: normal to inspection and full ROM Neuro: COMMON NORMALS: patient oriented x3, moves all extremities and no focal motor deficits Psych: COMMON NORMALS: mental status grossly normal, Normal thought process present and cooperative THOUGHT PROCESS: Normal thought process present Skin: COMMON NORMALS: no rashes or lesions noted and no wounds GENERAL SKIN EXAM: no rashes or lesions noted Course 2 Vital Signs: Vital signs: Vital Signs Temperature 97.9 F 11/21/24 15:09 Pulse Rate 90 11/21/24 17:30 Respiratory Rate 22 H 11/21/24 17:30 Blood Pressure 168/86 11/21/24 17:30 Pulse Oximetry 90 11/21/24 17:30 Oxygen Delivery Me thod Room Air 11/21/24 17:30 MDM - Weakness Medical Decision Making Patient presents here with shortness of breath she has had hypoxia here tonight placed on [address] shows pulm edema she does have an elevated BNP likely new onset congestive heart failure no PE or pneumonia spoke to hospitalist will admit at this time Medical Records I reviewed the patient's medical records. Lab Data I reviewed the patient's lab results. 11/21/24 15:40 11/21/24 15:40 Radiology Impressions Chest X-Ray 11/21/24 15:18 IMPRESSION: 1. Mild bibasilar opacities favor atelectasis. Infiltrate not excluded in the correct clinical setting. 2. Cardiomegaly. Chest CTA 11/21/24 16:22 IMPRESSION: 1. No evidence of pulmonary embolism. 2. Diffuse ground-glass opacities with areas of mosaic attenuation throughout the lungs. Findings are nonspecific and can be seen with pulmonary edema and/or atypical infection in the acute setting. Findings may also be seen with air trapping from chronic small airways disease. 3. Mildly enlarged mediastinal lymph nodes may be reactive. Consider follow-up CT chest in 2-3 months to evaluate for improvement. 4. Mildly dilated main pulmonary artery can be seen with pulmonary hypertension. Laboratory Results WBC 6.77 10^3/uL (3.29-11.43) 11/21/24 15:40 RBC 4.34 10^6/uL (3.85-5.65) 11/21/24 15:40 Hgb 11.60 g/dL (11.27-16.99) 11/21/24 15:40 Hct 41.5 % (36-47) 11/21/24 15:40 MCV 95.6 fl (85-98) 11/21/24 15:40 MCH 26.7 pg (27-33) L 11/21/24 15:40 MCHC 28.0 g/dL (30-55) L 11/21/24 15:40 RDW 16.3 % (12.1-15.1) H 11/21/24 15:40 Plt Count 193 10^3/cmm (157-399) 11/21/24 15:40 MPV 9.8 fL (7.4-10.4) 11/21/24 15:40 Neut % (Auto) 68.1 % 11/21/24 15:40 Lymph % (Auto) 22.6 % 11/21/24 15:40 [place] % (Auto) 6.2 % 11/21/24 15:40 Eos % (Auto) 2.4 % 11/21/24 15:40 Baso % (Auto) 0.3 % 11/21/24 15:40 Neut # (Auto) 4.61 10^3/uL (1.8-7.7) 11/21/24 15:40 Lymph # (Auto) 1.5 10^3/uL (0.8-4.8) 11/21/24 15:40 [place] # (Auto) 0.4 10^3/uL (0.2-0.9) 11/21/24 15:40 Eos # (Auto) 0.2 10^3/uL (0.0-0.8) 11/21/24 15:40 Baso # (Auto) 0.0 10^3/uL (0.0-0.1) 11/21/24 15:40 Nucleated RBC % (auto) 0.3 % 11/21/24 15:40 Nucleated RBCs # 0.0 /100WBC 11/21/24 15:40 D-Dimer 2.22 ug/mLFEU (0-0.59) H 11/21/24 15:40 Sodium 139 mmol/L (136-145) 11/21/24 15:40 Potassium 4.3 mmol/L (3.5-5.1) 11/21/24 15:40 Chloride 103 mmol/L (98-107) 11/21/24 15:40 Carbon Dioxide 24 mmol/L (22-29) 11/21/24 15:40 Anion Gap 16.3 (5-19) 11/21/24 15:40 BUN 13 mg/dL (8-23) 11/21/24 15:40 Creatinine 0.5 mg/dL (0.5-0.9) 11/21/24 15:40 GFR Calculation 149.8 mL/min (90-130) H 11/21/24 15:40 Glucose 143 mg/dL (65-115) H 11/21/24 15:40 Calculated Osmolality 291 mOsm/kg (285-295) 11/21/24 15:40 Calcium 8.6 mg/dL (8.5-10.5) 11/21/24 15:40 Total Bilirubin 0.9 mg/dL (0.15-1.2) 11/21/24 15:40 AST 49 U/L (0-32) H 11/21/24 15:40 ALT 42 U/L (0-33) H 11/21/24 15:40 Alkaline Phosphatase 140 U/L (35-105) H 11/21/24 15:40 Troponin T Baseline 11 ng/L (0-10) H 11/21/24 15:40 NT-Pro-B Natriuret Pep 3027 pg/mL (0-125) H 11/21/24 15:40 Total Protein 6.7 g/dL (6.6-8.7) 11/21/24 15:40 Albumin 3.7 g/dL (3.5-5.2) 11/21/24 15:40 Globulin 3.0 g/dL (1.3-4.6) 11/21/24 15:40 Lipase 21 U/L (13-60) 11/21/24 15:40 All radiology interpretation(s) finalized by discharge EKG Data EKG 1: I personally reviewed and interpreted this EKG as follows: EKG interpretation date: 11/21/24 EKG interpretation time: 15:55 Interpretation: nsr hr [address] elevation qrs 85 qtc 417 Discharge Plan Discharge Patient Disposition: Admitted As Inpatient Clinical Impression: Pulmonary edema, Acute hypoxic respiratory failure Condition: Stable Coding Level of Care Code ED Outsole Rounder for Chg Fwd Related Data Home Medications ?Medication ?Instructions ?Recorded ?Confirmed aspirin 81 mg tablet,delayed 81 mg PO DAILY 06/17/22 0 11/02/24 release loratadine 10 mg tablet (Claritin) 10 mg PO DAILY 08/2011/02/24 Previous Rx's ?Medication ?Instructions ?Recorded acetaminophen 500 mg tablet 1,000 mg (2 x 500 mg) PO Q 8H PRN 01/04/23 (Tylenol Extra Strength) pain #30 tabs carvedilol 12.5 mg tablet 12.5 mg PO BID #180 tabs 09/13 meloxicam 15 mg tablet 15 mg PO DAILY #90 tabs 04/0 09/13 sertraline 50 mg tablet 50 mg PO DAILY #90 tabs 040 09/13 albuterol sulfate 90 mcg/actuation 2 puff inhalation Q 6H PRN 10/11/24 aerosol inhaler shortness of breath or wheez ing #8.5 grams cyclobenzaprine 10 mg tablet 10 mg PO TID #30 tabs 07/16 Allergies Allergy/AdvReac Type Severity Reaction Status Date / Time lisinopril Allergy ADR-Cough Verified 11/02/24 09:27
[2024-11-21 15:55] LABS: Basophils % 0.3 %; Eosinophils # 0.2 10^3/uL (0.0-0.8); Eosinophils % 2.4 %; Hematocrit 41.5 % (36-47); Lymphocytes # 1.5 10^3/uL (0.8-4.8); Lymphocytes % 22.6 %; Mean Corpuscular Hemoglobin 26.7 pg (27-33); Mean Corpuscular Volume 95.6 fl (85-98); Mean Platelet Volume 9.8 fL (7.4-10.4); Monocytes # 0.4 10^3/uL (0.2-0.9); Monocytes % 6.2 %; Neutrophils # 4.61 10^3/uL (1.8-7.7); Neutrophils % 68.1 %; Nucleated Red Blood Cells % 0.3 %; Platelet Count 193 10^3/cmm (157-399); Red Blood Count 4.34 10^6/uL (3.85-5.65); Red Cell Distribution Width 16.3 % (12.1-15.1); White Blood Count 6.77 10^3/uL (3.29-11.43)
[2024-11-21 16:11] LABS: D Dimer 2.22 ug/mLFEU (0-0.59)
[2024-11-21 16:15] LABS: Troponin(5th) Baseline 11 ng/L (0-10)
--- NOTE | 2024-11-21 16:22 | CTR_ITS ---
PROCEDURE INFORMATION: Exam: CTA Chest With Contrast Exam date and time: 11/21/2024 4:45 PM Age: 64 years old Clinical indication: Chest wall pain; Additional info: Cp TECHNIQUE: Imaging protocol: Computed tomographic angiography of the chest with contrast. Exam focused on the arteries. 3D rendering (Not supervised by radiologist): MIP and/or 3D reconstructed images were created by the technologist. Radiation optimization: All CT scans at this facility use at least one of these dose optimization techniques: automated exposure control; mA and/or kV adjustment per patient size (includes targeted exams where dose is matched to clinical indication); or iterative reconstruction. Contrast material: OMNIPAQUE 350; Contrast volume: 100 ml; Contrast route: INTRAVENOUS (IV); COMPARISON: CT lung screening [id number] 09/22/2024 9:45 AM RADIATION DOSE METRICS: Total DLP (mGy-cm): 509.18 FINDINGS: Pulmonary arteries: The main pulmonary artery is mildly dilated, measuring 3.1 cm in caliber. No filling defects to the level of the proximal subsegmental pulmonary arteries. Aorta: The thoracic aorta is nonaneurysmal with mild atherosclerotic calcifications. Lungs: Ground-glass opacities throughout the lungs bilaterally with areas of mosaic attenuation. Subsegmental atelectasis in the lingula. No focal consolidation. Pleural spaces: Unremarkable. No pneumothorax. No pleural effusion. Heart: Stable cardiomegaly. No pericardial effusion. Coronary arteries: Multivessel coronary artery calcifications. Lymph nodes: Mildly enlarged left periaortic lymph node measures 1.0 cm short axis, previously 0.7 cm. A lymph node slightly posteriorly measures 1.2 cm, previously 0.8 cm. A precarinal lymph node measures 0.9 cm, stable. Bones/joints: Unremarkable. No acute fracture. Soft tissues: Unremarkable. CT/CT angio chest PE protcl [id number] IMPRESSION: 1. No evidence of pulmonary embolism. 2. Diffuse ground-glass opacities with areas of mosaic attenuation throughout the lungs. Findings are nonspecific and can be seen with pulmonary edema and/or atypical infection in the acute setting. Findings may also be seen with air trapping from chronic small airways disease. 3. Mildly enlarged mediastinal lymph nodes may be reactive. Consider follow-up CT chest in 2-3 months to evaluate for improvement. 4. Mildly dilated main pulmonary artery can be seen with pulmonary hypertension.
[2024-11-21 16:25] LABS: Alanine Aminotransferase 42 U/L (0-33); Albumin Level 3.7 g/dL (3.5-5.2); Alkaline Phosphatase 140 U/L (35-105); Anion Gap 16.3 (5-19); Aspartate Amino Transferase 49 U/L (0-32); Blood Urea Nitrogen 13 mg/dL (8-23); Calcium 8.6 mg/dL (8.5-10.5); Carbon Dioxide 24 mmol/L (22-29); Chloride 103 mmol/L (98-107); Creatinine Clr Calc Pharmacy 83.5568; Glomerular Filtration Rate 149.8 mL/min (90-130); Glucose 143 mg/dL (65-115); Lipase 21 U/L (13-60); NT Pro B Type Natriuretic Pept 3027 pg/mL (0-125); Osmolality Calculated 291 mOsm/kg (285-295); Potassium 4.3 mmol/L (3.5-5.1); Sodium 139 mmol/L (136-145); Total Bilirubin 0.9 mg/dL (0.15-1.2); Total Protein 6.7 g/dL (6.6-8.7)
[2024-11-21] MEDS: iohexol 350 mg/mL 500 mL Btl (per mL) IV (16:47)
[2024-11-21] MEDS: FUROsemide 10 mg/mL SDV 10mL 60 MG IVP (17:30)
--- NOTE | 2024-11-21 17:46 | PM.HP ---
Providers/Chief Complaint Primary Care Provider: Jose Pelayo MD Chief Complaint: sob History of Present Illness Geno Dubose is a 64 year old female Medications/Allergies Home Medications ?Medication ?Instructions ?Recorded ?Confirmed ?Last Taken ?Type aspirin 81 mg tablet,delayed 81 mg PO DAILY 06/17/22 11/02/24 Unknown History release acetaminophen 500 mg tablet 1,000 mg (2 x 500 mg) PO Q8H PRN 01/04/23 11/02/24 Unknown Rx (Tylenol Extra Strength) pain #30 tabs loratadine 10 mg tablet (Claritin) 10 mg PO DAILY 08/30/24 11/02/24 Unknown History carvedilol 12.5 mg tablet 12.5 mg PO BID #180 tabs 09/22/24 11/02/24 Unknown Rx meloxicam 15 mg tablet 15 mg PO DAILY #90 tabs 09/22/24 11/02/24 Unknown Rx sertraline 50 mg tablet 50 mg PO DAILY #90 tabs 09/22/24 11/02/24 Unknown Rx albuterol sulfate 90 mcg/actuation 2 puff inhalation Q6H PRN 10/11/24 11/02/24 Unknown Rx aerosol inhaler shortness of breath or wheezing #8.5 grams cyclobenzaprine 10 mg tablet 10 mg PO TID #30 tabs 10/20/24 11/02/24 Unknown Rx Allergies Allergy/AdvReac Type Severity Reaction Status Date / Time lisinopril Allergy ADR-Cough Verified 11/02/24 09:27 PFSH Acute PFSH: Medical History Right hand pain Trigger finger Moderate tobacco use disorder Panic anxiety syndrome Anxiety Moderate major depression Cannabis use disorder Obesity (BMI 35.0-39.9 without comorbidity) URI (upper respiratory infection) Sinusitis chronic, frontal Allergic rhinitis due to allergen Surgical History Hx of neck surgery two surgeries in mid Social History Smoking and tobacco/nicotine status: current every day tobacco/nicotine user cigarettes [ Other cigarette details: 1/ PPD, 20PY] Alcohol intake: never Substance/Drug Use: current Substance/Drug use frequency: daily Vitals/I&O/Wt Last Vital Signs Temp 97.9 F 11/21/24 15:09 Pulse 90 11/21/24 17:30 Resp 22 H 11/21/24 17:30 BP 168/86 11/21/24 17:30 Pulse Ox 90 11/21/24 17:30 O2 Del Method Room Air 11/21/24 17:30 Weight last 48 hrs Weight 99.79 kg Data 11/21/24 15:40 11/21/24 15:40 A&P PDMP PDMP Reviewed: Not Reviewed Coding Level of Care Code Acute Code for Chg Fwd
--- NOTE | 2024-11-21 18:11 | USCV_ITS ---
Geno Dubose Age: 64 Gender: F : 1960 Exam Date: 11/21/2024 18:47 Ordering Phys: Spenser Awad MD Technologist: CLAY [place]am Location[place] [facility] [place]ication: SOB, history of CHF BP: 163 / 91 HR: 91 Rhythm: Mostly sinus rhythm with strings of Atrial fibrillation Technical Quality: Adequate MEASUREMENTS (Male / Female) Normal Values 2D ECHO LV Diastolic Diameter PLAX 4.7 cm 4.2 - 5.9 / 3.9 - 5.3 cm IVS Diastolic Thickness 1.4 cm 0.6 - 1.0 / 0.6 - 0.9 cm IVS Systolic Thickness 1.6 cm LVPW Diastolic Thickness 1.4 cm 0.6 - 1.0 / 0.6 - 0.9 cm LVPW Systolic Thickness 1.5 cm LVOT Diameter 2.4 cm LV Ejection Fraction 2D Teich 33.5 % LV Ejection Fraction MOD 4C 36.4 % LV Ejection Fraction MOD 2C 22.4 % LV Ejection Fraction 2C AL 22.3 % LA Diameter 4.8 cm Aorta at Sinotubular Diameter 2.6 cm IVC Diameter 1.9 cm M-MODE LA Ao Ratio MM 2.0 AV Cusp Separation MM 1.8 cm DOPPLER AV Peak Velocity 131.0 cm/s LVOT Peak Velocity 72.0 cm/s AV Area Cont Eq vti 2.4 cm squared AV Area Cont Eq pk 2.4 cm squared MV Peak Velocity 170.0 cm/s MV Area PHT 4.5 cm squared Mitral E to A Ratio 1.8 TV Peak Velocity 284.0 cm/s TR Peak Velocity 315.0 cm/s TR Peak Gradient 39.7 mmHg TV Peak E Velocity 51.0 cm/s PV Peak Velocity 89.0 cm/s FINDINGS Left Ventricle Left ventricle is normal in size. LV systolic function is moderately reduced with EF of 35-40%. Moderate global hypokinesis Right Ventricle Normal in size and function Right Atrium Normal in size Left Atrium Severely dilated Mitral Valve Moderate mitral annular calcification. Moderate mitral regurgitation Aortic Valve Aortic valve is thickened. No significant stenosis. Mild aortic regurgitation Tricuspid Valve Mild tricuspid regurgitation. RVSP is 45-50mmHg. This is consistent with moderate pulmonary hypertension. Pulmonic Valve Mild pulmonic regurgitation. Pericardium Normal Aorta Normal in size IVC Appears to be normal CONCLUSIONS LV systolic function is moderately reduced with EF of 35-40% Severely dilated left atrium Moderate mitral regurgitation Mild aortic regurgitation Mild tricuspid regurgitation Moderate pulmonary hypertension Mild pulmonic regurgitation No comparison studies are available. Donta Robledo MD (Electronically Signed) Final Date: 22 November 2024 08:58 S
--- NOTE | 2024-11-21 18:11 | PM.HP ---
Providers/Chief Complaint Admitting Physician: Collette Hensley MD Primary Care Provider: Jose Pelayo MD Chief Complaint: sob History of Present Illness Geno Dubose is a 64 year old female with a past medical history of hypertension, obesity, history of smoking in the past, who presents [facility] due to cough, sinus symptoms, shortness of breath, lower extremity edema. Currently patient is alert oriented x 3, following all commands, she is sitting up to side of bed, complaining of feeling short of breath, with lower extreme edema. She tells me her symptoms started a few weeks ago when she was diagnosed with congestion, placed on antibiotics, however she continues to have symptomatology persisting to sinusitis she was given multiple doses of antibiotics but continues to have a cough, congestion, she also reports shortness of breath, shortness of breath exertion, orthopnea, paroxysmal nocturnal dyspnea and edema, she adamantly denies any chest pain or palpitations Review of Systems Const: Denies: fever(s) or chills Card: Reports: swelling of feet/ankles; Denies: chest pain Resp: Reports: dyspnea Medications/Allergies Home Medications ?Medication ?Instructions ?Recorded ?Confirmed ?Last Taken ?Type aspirin 81 mg tablet,delayed 81 mg PO DAILY 06/17/22 11/02/24 Unknown History release acetaminophen 500 mg tablet 1,000 mg (2 x 500 mg) PO Q8H PRN 01/04/23 11/02/24 Unknown Rx (Tylenol Extra Strength) pain #30 tabs loratadine 10 mg tablet (Claritin) 10 mg PO DAILY 08/30/24 11/02/24 Unknown History carvedilol 12.5 mg tablet 12.5 mg PO BID #180 tabs 09/22/24 11/02/24 Unknown Rx meloxicam 15 mg tablet 15 mg PO DAILY #90 tabs 09/22/24 11/02/24 Unknown Rx sertraline 50 mg tablet 50 mg PO DAILY #90 tabs 09/22/24 11/02/24 Unknown Rx albuterol sulfate 90 mcg/actuation 2 puff inhalation Q6H PRN 10/11/24 11/02/24 Unknown Rx aerosol inhaler shortness of breath or wheezing #8.5 grams cyclobenzaprine 10 mg tablet 10 mg PO TID #30 tabs 10/20/24 11/02/24 Unknown Rx Allergies Allergy/AdvReac Type Severity Reaction Status Date / Time lisinopril Allergy ADR-Cough Verified 11/02/24 09:27 PFSH Acute PFSH: Medical History Right hand pain Trigger finger Moderate tobacco use disorder Panic anxiety syndrome Anxiety Moderate major depression Cannabis use disorder Obesity (BMI 35.0-39.9 without comorbidity) URI (upper respiratory infection) Sinusitis chronic, frontal Allergic rhinitis due to allergen Surgical History Hx of neck surgery two surgeries in mid Social History Smoking and tobacco/nicotine status: current every day tobacco/nicotine user cigarettes [ Other cigarette details: 06/25 PPD, 20PY] Alcohol intake: never Substance/Drug Use: current Substance/Drug use frequency: daily Vitals/I&O/Wt Last Vital Signs Temp 97.9 F 11/21/24 15:09 Pulse 90 11/21/24 17:30 Resp 22 H 11/21/24 17:30 BP 168/86 11/21/24 17:30 Pulse Ox 90 11/21/24 17:30 O2 Del Method Room Air 11/21/24 17:30 Weight last 48 hrs Weight 99.79 kg Physical Exam Const: COMMON NORMALS: no acute distress and patient oriented x3 Neck/C-Spine: COMMON NORMALS: no JVD Lymph: LYMPHATIC: no lymphadenopathy noted Resp: COMMON NORMALS: normal respiratory effort, No retractions and No use of accessory muscles AUSCULTATION: crackles Cardio: COMMON NORMALS: regular rate, regular rhythm, S1 normal heart sound present and S2 normal heart sound present RATE: regular rate RHYTHM: regular rhythm HEART SOUNDS: S1 normal heart sound present and S2 normal heart sound present GI: COMMON NORMALS: Normal to inspection, nondistended, normoactive bowel sounds present, Soft to palpation and non-tender Extremity: NARRATIVE EXTREMITY EXAM: 1+ edema Neuro: COMMON NORMALS: patient oriented x3, CN's II-XII intact bilaterally and moves all extremities Psych: COMMON NORMALS: mental status grossly normal Data 11/21/24 15:40 11/21/24 15:40 A&P Assessment and plan (1) Acute hypoxic respiratory failure: (2) Pneumonia: (3) CHF (congestive heart failure): Plan Acute hypoxic respiratory failure CT/CT angio chest PE protcl [id number] IMPRESSION: 1. No evidence of pulmonary embolism. 2. Diffuse ground-glass opacities with areas of mosaic attenuation throughout the lungs. Findings are nonspecific and can be seen with pulmonary edema and/or atypical infection in the acute setting. Findings may also be seen with air trapping from chronic small airways disease. 3. Mildly enlarged mediastinal lymph nodes may be reactive. Consider follow-up CT chest in 2-3 months to evaluate for improvement. 4. Mildly dilated main pulmonary artery can be seen with pulmonary hypertension. - Multifactorial - Concern for atypical pneumonia - Concerns for fluid overload given elevated BNP, diastolic CHF Plan - Monitor cardiac stepdown unit - Pro-Abdirizak, CRP, respiratory viral panel, sputum cultures, blood cultures - Has received 60 mg IV push Lasix, will daily dose of Lasix - Cardiac echo - Monitor respiratory status - DuoNeb - Full code - Lovenox for DVT prophylaxis PDMP PDMP Reviewed: Last Reviewed 11/21/24 18:08 by Spenser Awad MD Attestations Medical Necessity Statement*: Patient requires hospitalization, inpatient, greater than 2 midnights, for acute hypoxic respiratory failure, pneumonia, CHF Diagnoses Acute hypoxic respiratory failure J96.01 Pneumonia J18.9 CHF (congestive heart failure) I50.9
[2024-11-21 18:33] LABS: Troponin 5 2HR 12.81 ng/L (0-10); Troponin 5 2HR Delta 1.81 ABS# (0-10)
--- NOTE | 2024-11-21 18:46 | PC.NURSE ---
pt placed on 2L NC. Dr. Wilson aware.
[2024-11-21 18:53] LABS: C Reactive Protein 19.1 mg/L (0.0-4.9)
[2024-11-21 19:00] LABS: Procalcitonin 0.05 ng/mL (0-0.5)
--- NOTE | 2024-11-21 19:04 | PC.NURSE ---
pt report called to [facility].
[2024-11-21] MEDS: AZITHROMYCIN ADD-Vantage 500 MG in 0.9% NaCl ADD-Vantage 250 ML 250 MG IV (20:07)
[2024-11-21] MEDS: cefTRIAXone 1,000 mg SDV 1000 MG IVP (20:08)
[2024-11-21] MEDS: pantoprazole 40 mg SDV IVP (20:08)
[2024-11-21] MEDS: enoxaparin 40 mg/0.4 mL Syringe SUBCUT (20:09)
[2024-11-21] MEDS: atorvastatin 40 mg Tablet PO (20:09)
[2024-11-21 20:30] LABS: Chol HDL Ratio 4.47 mg/dL (0.0-4.40); Cholesterol 152 mg/dL (0-200); Ferritin 141 ng/mL (15-150); HDL Cholesterol 34 mg/dL (60-100); LDL Cholesterol Calculated 95 mg/dL (50-129); LDL HDL Ratio 2.79 RATIO (0.00-3.22); Lipase 26 U/L (13-60); Thyroid Stimulating Hormone 3.41 uIU/mL (0.27-4.20); Triglycerides 115 mg/dL (0-150)
[2024-11-21] MEDS: albuterol 2.5 mg/3 mL Neb INHALATION (21:00)
--- NOTE | 2024-11-21 21:16 | PC.NURSE ---
pt arrived to [facility] at 1953, vital signs stable, patient continet, admission assesment completed and medications started.
--- NOTE | 2024-11-21 21:18 | ECG_ITS ---
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
[2024-11-21 22:23] LABS: Troponin 5 6HR 13.77 ng/L (0-10); Troponin 5 6HR Delta 2.77 ng/L (0-12)
[2024-11-22] VITALS (9 sets, daily range): BP systolic 91–165; BP diastolic 58–108; PULSE 68–102; RESP 14–33; TEMP 36.1–36.9; O2SAT 86–95
[2024-11-22 04:56] LABS: Basophils % 0.2 %; Eosinophils # 0.2 10^3/uL (0.0-0.8); Eosinophils % 2.2 %; Hematocrit 38.1 % (36-47); Lymphocytes # 1.8 10^3/uL (0.8-4.8); Lymphocytes % 22.1 %; Mean Corpuscular Hemoglobin 26.9 pg (27-33); Mean Corpuscular Volume 86.8 fl (85-98); Monocytes # 0.5 10^3/uL (0.2-0.9); Monocytes % 6.4 %; Neutrophils # 5.59 10^3/uL (1.8-7.7); Neutrophils % 68.6 %; Nucleated Red Blood Cells % 0.4 %; Platelet Count 234 10^3/cmm (157-399); Red Blood Count 4.39 10^6/uL (3.85-5.65); Red Cell Distribution Width 16.3 % (12.1-15.1); White Blood Count 8.15 10^3/uL (3.29-11.43)
[2024-11-22 05:25] LABS: Chloride 101 mmol/L (98-107); Potassium 3.6 mmol/L (3.5-5.1); Sodium 143 mmol/L (136-145)
[2024-11-22 05:44] LABS: Hepatitis A Antibody IgM Non-Reactive (Nonreactive); Hepatitis B Core IgM Non-Reactive (Nonreactive); Hepatitis B Surface Antigen Non-Reactive (Nonreactive); Hepatitis C Virus Antibody Non-Reactive (Nonreactive)
[2024-11-22 05:45] LABS: NT Pro B Type Natriuretic Pept 3995 pg/mL (0-125)
[2024-11-22 05:57] LABS: Alanine Aminotransferase 40 U/L (0-33); Albumin Level 3.6 g/dL (3.5-5.2); Alkaline Phosphatase 144 U/L (35-105); Anion Gap 17.6 (5-19); Aspartate Amino Transferase 42 U/L (0-32); Blood Urea Nitrogen 14 mg/dL (8-23); Carbon Dioxide 28 mmol/L (22-29); Creatinine Clr Calc Pharmacy 83.5568; Globulin 3.5 g/dL (1.3-4.6); Glomerular Filtration Rate 149.8 mL/min (90-130); Glucose 108 mg/dL (65-115); Magnesium 1.9 mg/dL (1.7-2.3); Osmolality Calculated 297 mOsm/kg (285-295); Total Bilirubin 0.8 mg/dL (0.15-1.2); Total Protein 7.1 g/dL (6.6-8.7)
[2024-11-22] MEDS: albuterol 2.5 MG/0.5 ML NEB INHALATION ×3 (07:19→20:13)
--- NOTE | 2024-11-22 09:31 | PC.CHAP ---
Pastoral Care Encounter/Spiritual Assessment Type of Contact [] Declined picker / packer visit [] Patient/Family/Request visit [] Outpatient visit [] Follow-up visit [] Physician referral [] Code/Alert [] Routine visit [] Staff referral [] Actively dying [] Patient sleeping [] Family support [] [x] Out of room [] Palliative care [] [] Receiving care in room [] Pre-surgical visit [] Trauma [] Long length of stay [] ICU visit [] Other: Relational/Emotional Strength [] Patient feels connected with others/family/visitors/staff [] Distress [] Loneliness/isolation [] Abandonment Spirituality of Patient [] Person of Melonie [] Attends Episcopal of their Melonie [] Believes in Prayer [] Reads Bible or Restorationism materials [] There are Spiritual issues to be addressed Cement Sprayer Helper Interventions [] Prayer [] Active listening [] Non-anxious presence [] Spiritual/emotional support [] Crisis/trauma care [] Spiritual counseling [] Bereavement support [] Provided bereavement packet [] Provided Bible/devotional materials [] Provided toy/stuffed animal, coloring book to patient or family member [] Provided Communion [] Anointing/[place] [] Salvation [] Completed spiritual assessment [] Other: Impact on Illness or Injury [] Angry [] Fearful [] Anxious [] Often cries [] Exhaustion [] Unable to work [] Unable to attend protestant [] Unable to walk/stand [] Unable to read [] Unable to drive [] Unable to eat/drink [] Unable to sleep [] Unable to be with family [] Patient intubated [] Other: Summary Time spent with patient
[2024-11-22] MEDS: aspirin 81 mg EC Tablet PO (09:34)
[2024-11-22] MEDS: sertraline 50 mg Tablet PO (09:34)
[2024-11-22] MEDS: FUROsemide 10 mg/mL SDV 4mL 40 MG IVP ×2 (09:35→21:24)
[2024-11-22] MEDS: carvedilol 12.5 mg Tablet PO ×2 (09:35→17:30)
--- NOTE | 2024-11-22 09:37 | PC.PHAR ---
Pt states she has not taken medications since Thursday.
[2024-11-22 10:07] LABS: Bilirubin Urine Negative (Negative); Blood Urine Negative (Negative); Glucose Urine UA Negative (Normal); Ketones Urine Negative (Negative); Leukocyte Esterase Urine Negative (Negative); Nitrate Urine Negative (Negative); Protein Urine Negative (Negative); Specific Gravity, Urine 1.018 (1.005-1.030); Urine Appearance Clear (CLEAR); pH Urine 7.5 (5-7)
[2024-11-22 10:10] LABS: Add Urine Microscopic? YES; Bacteria Urine None Seen /hpf; Hyaline Casts Urine 0-4 /lpf; RBC Urine 0-2 /hpf (0-2); Squamous Epithelial Cell Urine 0-5 /hpf (0-5); WBC Urine 0-5 /hpf (0-5)
[2024-11-22 10:35] LABS: Urine Color Yellow (Yellow)
--- NOTE | 2024-11-22 12:59 | P.PN_ITS ---
Subjective 2 Subjective: Patient was seen this morning, she is alert and oriented x 3, following all commands does report shortness of breath no fevers, no chills, no cough, no chest pain Vitals/I&O/Wt Last Vital Signs Temp 97.9 F 11/22/24 10:50 Pulse 74 11/22/24 10:50 Resp 21 H 11/22/24 10:50 BP 127/76 11/22/24 10:50 Pulse Ox 92 11/22/24 10:50 O2 Del Method Nasal Cannula 11/22/24 10:50 O2 Flow Rate 2 11/22/24 07:38 11/21/24 11/22/24 11/22/24 22:59 06:59 14:59 Intake Total 350 / 350 240 / 240 Output Total 250 / 250 400 / 650 Balance 100 / 100 -400 / -300 240 / 240 Weight last 48 hrs Weight 101.151 kg Weight 99.79 kg Physical Exam 2 Const: COMMON NORMALS: no acute distress and patient oriented x3 Resp: COMMON NORMALS: normal respiratory effort, No retractions and No use of accessory muscles AUSCULTATION: crackles and rales Cardio: COMMON NORMALS: regular rate, regular rhythm, S1 normal heart sound present and S2 normal heart sound present RATE: regular rate RHYTHM: r egular rhythm HEART SOUNDS: S1 normal heart sound present and S2 normal heart sound present GI: COMMON NORMALS: Normal to inspection, nondistended, normoactive bowel sounds present and non-tender Extremity: COMMON NORMALS: no pedal edema Neuro: COMMON NORMALS: patient oriented x3 Psych: COMMON NORMALS: mental status grossly normal Data 11/22/24 03:53 11/22/24 03:53 Micro: Microbiology 11/21/24 19:34 Blood Culture - Preliminary Blood SPECIMEN COLLECTED 11/21/24 19:32 Blood Culture - Preliminary Blood SPECIMEN COLLECTED A&P Assessment and plan (1) Acute hypoxic respiratory failure: (2) Pneumonia: (3) CHF (congestive heart failure): (4) Systolic CHF: Plan Acute hypoxic respiratory failure CT/CT angio chest PE protcl [id number] IMPRESSION: 1. No evidence of pulmonary embolism. 2. Diffuse ground-glass opacities with areas of mosaic attenuation throughout the lungs. Findings are nonspecific and can be seen with pulmonary edema and/or atypical infection in the acute setting. Findings may also be seen with air trapping from chronic small airways disease. 3. Mildly enlarged mediastinal lymph nodes may be reactive. Consider follow-up CT chest in 2-3 months to evaluate for improvement. 4. Mildly dilated main pulmonary artery can be seen with pulmonary hypertension. - Multifactorial - Concern for atypical pneumonia - Concerns for fluid overload given elevated BNP, systolic chf echo CONCLUSIONS LV systolic function is moderately reduced with EF of 35-40% Severely dilated left atrium Moderate mitral regurgitation Mild aortic regurgitation Mild tricuspid regurgitation Moderate pulmonary hypertension Mild pulmonic regurgitation No comparison studies are available. Plan - Monitor cardiac stepdown unit -sputum cultures, blood cultures - Has received 60 mg IV push Lasix, lasix 40mg iv bid - Cardiac echo as above, given diminished, will consult cardiology - Monitor respiratory status - DuoNeb - Full code - Lovenox for DVT prophylaxis Plan for today continue IV diuresis, continue IV antibiotics, cardiology consulted PDMP PDMP Reviewed: Last Reviewed 11/21/24 18:08 by Spenser Awad MD Attestations 2 Medical Necessity Statement*: Patient requires hospitalization for acute hypoxic respiratory failure secondary to CHF, pneumonia, new onset heart failure Diagnoses Acute hypoxic respiratory failure J96.01 Pneumonia J18.9 CHF (congestive heart failure) I50.9 Systolic CHF I50.20
--- NOTE | 2024-11-22 15:20 | P.CONIM_ITS ---
<Statement entered by Shannen Martines MD - 11/22/24 20:17> Patient was evaluated and cared for in conjunction with an advanced practice practitioner. I personally examined the patient and reviewed the chart and all pertinent data including imaging, telemetry, and laboratory results. I discussed the patient in detail with the advanced practice practitioner. Please see their note for complete H&P testing result and agreed upon plan of care for the patient. 64-year-old female past medical history significant as below presented with worsening of shortness of breath noted to have new onset of heart failure with severely depressed ejection fraction. She started responding good to diuretics and feeling better. She is not sure whether she can lay flat in the bed. GENERAL: Patient is alert, awake and oriented x3. HEART: Regular S1 and S2. No murmur, rub or gallop. LUNGS: Decreased breath sounds bilaterally. CENTRAL NERVOUS SYSTEM: Grossly nonfocal. EXTREMITIES: Lower extremities with out edema bilaterally. New onset of heart failure systolic type decompensated Severely depressed left ventricle ejection fraction 35% by echocardiogram Continue IV Lasix Continue beta-una We will add Entresto Once euvolemic will proceed with left heart cath Providers/Reason For Consult 2 Consulting Physician/Specialty*: Dr. Matrines Reason for Consult*: New onset systolic heart failure Requesting Physician: Dr. Awad Attending Physician: Spenser Awad MD Primary Care Provider: Jose Pelayo MD History of Present Illness History of Present Illness Geno Dubose is a 64 year old female with history of hypertension, obesity, current smoker, who presented to the ER yesterday for what she says is severe shortness of breath and a cough. She states that she could tell she had some swelling in her legs as well. She states that they started a few weeks ago and she was placed on antibiotics and treated for possible bronchitis. She states that her shortness of breath on exertion persisted and worsened. She denies any family history or personal history of heart disease. She denies any recent chest pressure or chest pain. Echo was done that showed an EF of 35 to 40%, severely dilated left atrium, moderate mitral regurg, and moderate pulmonary hypertension. She has moderate global hypokinesis. proBNP was 3995. Currently she is taking Coreg 12.5 twice daily atorvastatin 40 mg at bedtime, Lasix 40 every 12, and Lovenox. Chest CTA was done that showed diffuse groundglass opacities with possible atypical infection or pulmonary edema. She is lying down in bed. She is requiring oxygen but clinically appears euvolemic. Lungs are clear no edema present. She states her shortness of breath has improved. EKG showed sinus rhythm with no acute ST or T wave abnormalities. Troponins were 11-12.81-13.77. Medications/Allergies Home Medications ?Medication ?Instructions ?Recorded ?Confirmed ?Last Taken ?Type aspirin 81 mg tablet,delayed 81 mg PO DAILY 06/17/22 0 11/22/24 11/20/24 History release acetaminophen 500 mg tablet 1,000 mg (2 x 500 mg) PO Q 8H PRN 01/04/23 11/22/24 Unknown Rx (Tylenol Extra Strength) pain #30 tabs loratadine 10 mg tablet (Claritin) 10 mg PO DAILY 08/2011/22/24 11/20/24 History carvedilol 12.5 mg tablet 12.5 mg PO BID #180 tabs 09/1311/22/24 11/20/24 Rx meloxicam 15 mg tablet 15 mg PO DAILY #90 tabs 04/0 09/1311/22/24 11/20/24 Rx sertraline 50 mg tablet 50 mg PO DAILY #90 tabs 04/0 09/1311/22/24 11/20/24 Rx albuterol sulfate 90 mcg/actuation 2 puff inhalation Q 6H PRN 10/11/24 11/22/24 Unknown Rx aerosol inhaler shortness of breath or wheez ing #8.5 grams cyclobenzaprine 10 mg tablet 10 mg PO TID #30 tabs 07/1611/22/24 Unknown Rx Allergies Allergy/AdvReac Type Severity Reaction Status Date / Time lisinopril Allergy ADR-Cough Verified 11/02/24 09:27 Current Medications Generic Name Dose Route Start Last Admin Trade Name Freq PRN Reason Stop Dose Admin Albuterol Sulfate 2.5 mg 11/21/24 19:50 11/21/24 21:00 Albuterol 2.5 Mg/3 Ml Neb INHALATION 2.5 mg Q6H PRN Administration shortness of breath or wheezing Albuterol Sulfate 2.5 mg 11/21/24 21:30 11/22/24 14:28 Albuterol 2.5 Mg/0.5 Ml Neb INHALATION 2.5 mg TID.RESP LAUREN Administration Aspirin 81 mg 11/22/24 09:00 11/22/24 09:34 Aspirin 81 Mg Ec Tablet PO 81 mg DAILY LAUREN Administration Atorvastatin Calcium 40 mg 11/21/24 21:00 11/21/24 20:09 Atorvastatin 40 Mg Tablet PO 40 mg BEDTIME LAUREN Administration Carvedilol 12.5 mg 11/22/24 09:00 11/22/24 09:35 Carvedilol 12.5 Mg Tablet PO 12.5 mg BID LAUREN Administration Ceftriaxone Sodium 1,000 mg 11/21/24 20:00 11/21/24 20:08 Ceftriaxone 1,000 Mg Sdv IVP 1,000 mg Q24H LAUREN Administration Protocol Enoxaparin Sodium 40 mg 11/21/24 20:00 11/21/24 20:09 Enoxaparin 40 Mg/0.4 Ml Syringe SUBCUT 40 mg Q24H LAUREN Administration Furosemide 40 mg 11/22/24 08:15 11/22/24 09:35 Furosemide 10 Mg/Ml Sdv 4ml IVP 40 mg Q12H LAUREN Administration Azithromycin 500 mg/ Sodium 250 mls @ 250 mls/hr 11/21/24 20:00 11/21/24 21:18 Chloride IV Infused Q24H LAUREN Infusion Protocol Pantoprazole Sodium 40 mg 11/21/24 20:00 11/21/24 20:08 Pantoprazole 40 Mg Sdv IVP 40 mg Q24H LAUREN Administration Sertraline HCl 50 mg 11/22/24 09:00 11/22/24 09:34 Sertraline 50 Mg Tablet PO 50 mg DAILY LAUREN Administration PFSH Acute 2 PFSH: Medical History Right hand pain Trigger finger Moderate tobacco use disorder Panic anxiety syndrome Anxiety Moderate major depression Cannabis use disorder Obesity (BMI 35.0-39.9 without comorbidity) URI (upper respiratory infection) Sinusitis chronic, frontal Allergic rhinitis due to allergen Surgical History Hx of neck surgery two surgeries in mid Social History Smoking and tobacco/nicotine status: current every day tobacco/nicotine user cigarettes [ Other cigarette details: 06/25 PPD, 20PY] Alcohol intake: never Substance/Drug Use: current Substance/Drug use frequency: daily Vitals/I&O/Wt Last Vital Signs Temp 97.9 F 11/22/24 10:50 Pulse 85 11/22/24 14:00 Resp 18 11/22/24 14:00 BP 127/76 11/22/24 10:50 Pulse Ox 86 L 11/22/24 14:01 O2 Del Method Nasal Cannula 11/22/24 14:00 O2 Flow Rate 2 11/22/24 14:01 11/22/24 11/22/24 11/22/24 06:59 14:59 22:59 Intake Total 600 / 600 Output Total 400 / 650 Balance -400 / -300 600 / 600 Weight last 48 hrs Weight 223 lb Weight 220 lb Physical Exam 2 Narrative: General: No apparent distress, healthy appearing, well nourished HENMT: normoceophalic Muskuloskeletal: Full ROM Respiratory: Normal respiratory effort, clear to auscultation bilaterally throughout all lung bruno, no use of accessory muscles Cardio: No JVD, regular rate, regular rhythm, S1 S2 normal, no murmurs, peripheral pulses 2+ radial palpated bilaterally GI: Normal to inspection, nondistended Extremities: Full ROM, normal, normal capillary refill, no cyanosis or edema Neuro: Alert and oriented x4, no focal motor deficits Psych: Affect normal, denies suicidal ideation, mental status grossly normal Skin: No rashes or lesions noted, no wounds Data 11/22/24 03:53 11/22/24 03:53 Micro: Microbiology 11/21/24 19:34 Blood Culture - Preliminary Blood SPECIMEN COLLECTED 11/21/24 19:32 Blood Culture - Preliminary Blood SPECIMEN COLLECTED A&P Assessment and plan (1) Systolic CHF: (2) CHF (congestive heart failure): (3) HTN (hypertension): (4) Moderate tobacco use disorder: Plan Patient has new onset acute systolic heart failure. She is well compensated at this time. EF is decreased at 35 to 40%. Agree with Lasix 40 every 12. She appears euvolemic at this time. Continue Lovenox. Continue Coreg 12.5 twice daily for heart failure. Patient needs an angiogram to further evaluate for possible underlying coronary ischemia as the cause of the systolic heart failure. I have discussed this with the patient. We plan on doing this tomorrow morning if patient is agreeable. She is going to talk to her sister about this and let us know this afternoon. After, will start GDMT if creatinine and bp will allow. The risk and benefits were discussed in detail with the patient. The risk of bleeding, hematoma, vascular injury, myocardial infarction, myocardial perforation, malignant cardiac arrhythmias ,CVA, renal failure and other concomitant complications were explained in detail. Thank you, Dr. Awad, for allowing us to care for this very pleasant 64 year old female. PDMP PDMP Reviewed: Not Reviewed Coding Level of Care Code Acute Code for Chg Fwd Diagnoses Acute systolic congestive heart failure I50.21 Heart failure chronicity: acute Acute systolic congestive heart failure I50.21 Heart failure chronicity: acute Heart failure type: systolic Primary hypertension I10 Hypertension type: primary hypertension Moderate tobacco use disorder F17.200
[2024-11-22 18:51] LABS: Influenza A NEGATIVE (Negative); Influenza B NEGATIVE (Negative); Respiratory Syncytial Virus Ce NEGATIVE (Negative); SARS-CoV-2 PCR NEGATIVE (Negative)
[2024-11-22] MEDS: AZITHROMYCIN ADD-Vantage 500 MG in 0.9% NaCl ADD-Vantage 250 ML 250 MG IV (21:25)
[2024-11-22] MEDS: cefTRIAXone 1,000 mg SDV 1000 MG IVP (21:25)
[2024-11-22] MEDS: pantoprazole 40 mg SDV IVP (21:26)
[2024-11-22] MEDS: atorvastatin 40 mg Tablet PO (21:26)
[2024-11-23] VITALS (11 sets, daily range): BP systolic 120–157; BP diastolic 66–113; PULSE 74–86; RESP 17–24; TEMP 36.4–36.8; O2SAT 94–99
[2024-11-23 05:33] LABS: Basophils % 0.3 %; Eosinophils # 0.3 10^3/uL (0.0-0.8); Eosinophils % 4.2 %; Hematocrit 40.8 % (36-47); Lymphocytes # 1.2 10^3/uL (0.8-4.8); Lymphocytes % 15.5 %; Mean Corpuscular HGB Conc 30.6 g/dL (30-55); Mean Corpuscular Hemoglobin 26.8 pg (27-33); Mean Corpuscular Volume 87.6 fl (85-98); Mean Platelet Volume 9.3 fL (7.4-10.4); Monocytes # 0.5 10^3/uL (0.2-0.9); Monocytes % 6.8 %; Neutrophils # 5.56 10^3/uL (1.8-7.7); Neutrophils % 72.8 %; Nucleated Red Blood Cells % 0 %; Platelet Count 222 10^3/cmm (157-399); Red Blood Count 4.66 10^6/uL (3.85-5.65); Red Cell Distribution Width 16.1 % (12.1-15.1); White Blood Count 7.63 10^3/uL (3.29-11.43)
[2024-11-23 05:57] LABS: Anion Gap 14.5 (5-19); Blood Urea Nitrogen 19 mg/dL (8-23); Calcium 8.8 mg/dL (8.5-10.5); Carbon Dioxide 32 mmol/L (22-29); Chloride 100 mmol/L (98-107); Creatinine Clr Calc Pharmacy 84.1593; Glomerular Filtration Rate 121.4 mL/min (90-130); Glucose 106 mg/dL (65-115); Osmolality Calculated 299 mOsm/kg (285-295); Potassium 3.5 mmol/L (3.5-5.1); Sodium 143 mmol/L (136-145)
[2024-11-23] MEDS: sodium chloride 0.9% 1,000 ML 50 ML IV (06:55)
[2024-11-23] MEDS: carvedilol 12.5 mg Tablet PO ×2 (07:46→16:53)
[2024-11-23] MEDS: sertraline 50 mg Tablet PO (07:46)
[2024-11-23] MEDS: aspirin 81 mg EC Tablet PO (07:46)
[2024-11-23] MEDS: diphenhydrAMINE 50 mg Capsule PO (07:46)
[2024-11-23] MEDS: albuterol 2.5 MG/0.5 ML NEB INHALATION ×2 (07:55→14:24)
[2024-11-23] MEDS: morphine 4 mg/mL SDV 1 mL 1 MG IVP (09:01)
--- NOTE | 2024-11-23 10:01 | PC.CHAP ---
Pastoral Care Encounter/Spiritual Assessment Type of Contact [] Declined adobe ball mixer visit [] Patient/Family/Request visit [] Outpatient visit [] Follow-up visit [] Physician referral [] Code/Alert [x] Routine visit [] Staff referral [] Actively dying [] Patient sleeping [] Family support [] [] Out of room [] Palliative care [] [] Receiving care in room [] Pre-surgical visit [] Trauma [] Long length of stay [] ICU visit [] Other: Relational/Emotional Strength [x] Patient feels connected with others/family/visitors/staff [] Distress [] Loneliness/isolation [] Abandonment Spirituality of Patient [x] Person of Melonie [] Attends Jehovah'S Witness of their Melonie [x] Believes in Prayer [] Reads Bible or Zoroastrianism materials [] There are Spiritual issues to be addressed Livestock Auctioneer Interventions [x] Prayer [x] Active listening [x] Non-anxious presence [x] Spiritual/emotional support [] Crisis/trauma care [] Spiritual counseling [] Bereavement support [] Provided bereavement packet [] Provided Bible/devotional materials [] Provided toy/stuffed animal, coloring book to patient or family member [] Provided Communion [] Anointing/[place] [] Salvation [x] Completed spiritual assessment [] Other: Impact on Illness or Injury [] Angry [] Fearful [] Anxious [] Often cries [] Exhaustion [] Unable to work [] Unable to attend baptism [] Unable to walk/stand [] Unable to read [] Unable to drive [] Unable to eat/drink [] Unable to sleep [] Unable to be with family [] Patient intubated [] Other: Summary Time spent with patient 5 min
--- NOTE | 2024-11-23 10:37 | ECG_ITS ---
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
[2024-11-23 11:24] LABS: Troponin T (5th) Once 11 ng/L (0-10)
--- NOTE | 2024-11-23 11:33 | PC.SOCIAL ---
IMM Updated Updated pt on IMM. No questions voiced. Provided pt a copy. Initialed, dated, & timed a copy & placed in chart.
[2024-11-23] MEDS: cyclobenzaprine 10 mg Tablet 5 MG PO (12:11)
--- NOTE | 2024-11-23 13:44 | P.PN_ITS ---
<Statement entered by Shannen Martines MD - 11/23/24 21:18> Patient was evaluated and cared for in conjunction with an advanced practice practitioner. I personally examined the patient and reviewed the chart and all pertinent data including imaging, telemetry, and laboratory results. I discussed the patient in detail with the advanced practice practitioner. Please see their note for complete H&P testing result and agreed upon plan of care for the patient. Subjective 2 Subjective: Patient is doing much better this morning. Oxygen saturation 99% on nasal cannula. Appears euvolemic. She has some elevated blood pressure readings 150s over 90s. Creatinine is stable at 0.6. Vitals/I&O/Wt Last Vital Signs Temp 98.2 F 11/23/24 11:38 Pulse 77 11/23/24 11:38 Resp 17 11/23/24 11:38 BP 123/73 11/23/24 11:38 Pulse Ox 96 11/23/24 11:38 O2 Del Method Nasal Cannula 11/23/24 11:38 O2 Flow Rate 2 11/23/24 07:55 11/22/24 11/23/24 11/23/24 22:59 06:59 14:59 Intake Total 100 / 700 250 / 950 419.167 / 419.167 Output Total 0 / 0 Balance 100 / 700 250 / 950 419.167 / 419.167 Weight last 48 hrs Weight 220 lb Weight 223 lb Weight 220 lb Physical Exam 2 Narrative: General: No apparent distress, healthy appearing, well nourished HENMT: normoceophalic Muskuloskeletal: Full ROM Respiratory: Normal respiratory effort, clear to auscultation bilaterally throughout all lung bruno, no use of accessory muscles Cardio: No JVD, regular rate, regular rhythm, S1 S2 normal, no murmurs, peripheral pulses 2+ radial palpated bilaterally GI: Normal to inspection, nondistended Extremities: Full ROM, normal, normal capillary refill, no cyanosis or edema Neuro: Alert and oriented x4, no focal motor deficits Psych: Affect normal, denies suicidal ideation, mental status grossly normal Skin: No rashes or lesions noted, no wounds Data 11/23/24 05:00 11/23/24 05:00 Micro: Microbiology 11/22/24 23:00 Gram Stain - Final Sputum - Expectorated Sputum 11/21/24 19:34 Blood Culture - Preliminary Blood NEGATIVE TO DATE 11/21/24 19:32 Blood Culture - Preliminary Blood NEGATIVE TO DATE A&P Assessment and plan (1) Systolic CHF: (2) CHF (congestive heart failure): (3) HTN (hypertension): (4) Moderate tobacco use disorder: Plan Patient has new onset acute systolic heart failure. She is well compensated at this time. EF is decreased at 35 to 40%. Continue Lasix 40 every 12. She appears euvolemic at this time. Continue Lovenox. Continue Coreg 12.5 twice daily for heart failure. Patient needs an angiogram to further evaluate for possible underlying coronary ischemia as the cause of the systolic heart failure. We will give patient today to continue to diurese and plan on doing it tomorrow morning. We will start Entresto at this time. Continue to watch I&O as well as kidney function. PDMP PDMP Reviewed: Not Reviewed Attestations 2 Medical Necessity Statement*: Deferred to primary. Coding Level of Care Code Acute Code for [facility] Diagnoses Acute systolic congestive heart failure I50.21 Heart failure chronicity: acute Acute systolic congestive heart failure I50.21 Heart failure type: systolic Heart failure chronicity: acute Primary hypertension I10 Hypertension type: primary hypertension Moderate tobacco use disorder F17.200
--- NOTE | 2024-11-23 16:03 | XR_ITS ---
WS: [id number] XR cervical spine 3V* [id number] REASON FOR EXAM: pain FINDINGS: Lateral view does not evaluate below the C4 level. Benign intracranial calcification. Anterior plate and screw fixation with interbody fusion device C3-C4. Surgical appliances are intact and in proper position and alignment. AP view suggests narrowed disc/possible fusion below C4. XR/XR cervical spine 3V* [id number] IMPRESSION: Limited examination. Postop anterior fusion C3-C4. No acute abnormality.
--- NOTE | 2024-11-23 16:03 | P.PN_ITS ---
Subjective 2 Subjective: Patient was seen this morning, currently alert oriented x 3, following all commands, denies any fevers, no chills she does have right shoulder pain, right- sided neck pain, she has had a history of neck surgery, troponin is 11, EKG no acute ST-T wave changes, discussed doing a x-ray of her shoulder, x-ray of the neck, but her EF is down to 30%, we will continue to monitor the right shoulder pain, Vitals/I&O/Wt Last Vital Signs Temp 97.8 F 11/23/24 15:47 Pulse 84 11/23/24 15:47 Resp 20 H 11/23/24 15:47 BP 137/113 11/23/24 15:47 Pulse Ox 96 11/23/24 15:47 O2 Del Method Nasal Cannula 11/23/24 14:26 O2 Flow Rate 2 11/23/24 14:26 11/23/24 11/23/24 11/23/24 06:59 14:59 22:59 Intake Total 250 / 950 419.167 / 419.167 Balance 250 / 950 419.167 / 419.167 Weight last 48 hrs Weight 99.79 kg Weight 101.151 kg Physical Exam 2 Const: COMMON NORMALS: no acute distress and patient oriented x3 Resp: COMMON NORMALS: normal respiratory effort, No retractions, No use of accessory muscles and clear to auscultation bilaterally AUSCULTATION: clear to auscultation bilaterally Cardio: COMMON NORMALS: regular rate, regular rhythm, S1 normal heart sound present and S2 normal heart sound present RATE: regular rate RHYTHM: r egular rhythm HEART SOUNDS: S1 normal heart sound present and S2 normal heart sound present GI: COMMON NORMALS: Normal to inspection, nondistended, normoactive bowel sounds present and non-tender Extremity: COMMON NORMALS: no pedal edema Neuro: COMMON NORMALS: patient oriented x3, CN's II-XII intact bilaterally and moves all extremities Psych: COMMON NORMALS: mental status grossly normal Skin: NARRATIVE SKIN EXAM: Right shoulder, has pain with range of motion, has pain above 90 degree arc, no clicking, no popping, pain along the right neck, 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 No evidence of pulmonary embolism. 2. Diffuse ground-glass opacities with areas of mosaic attenuation throughout the lungs. Findings are nonspecific and can be seen with pulmonary edema and/or atypical infection in the acute setting. Findings may also be seen with air trapping from chronic small airways disease. 3. Mildly enlarged mediastinal lymph nodes may be reactive. Consider follow-up CT chest in 2-3 months to evaluate for improvement. 4. Mildly dilated main pulmonary artery can be seen with pulmonary hypertension. - Multifactorial - Concern for atypical pneumonia - Concerns for fluid overload given elevated BNP, systolic chf echo CONCLUSIONS LV systolic function is moderately reduced with EF of 35-40% Severely dilated left atrium Moderate mitral regurgitation Mild aortic regurgitation Mild tricuspid regurgitation Moderate pulmonary hypertension Mild pulmonic regurgitation No comparison studies are available. Plan - Monitor cardiac stepdown unit -sputum cultures, blood cultures, - Has received 60 mg IV push Lasix, lasix 40mg iv bid, monitor urine output - Cardiac echo as above, given diminished, will consult cardiology, plan to cardiac cath tomorrow - Monitor respiratory status - DuoNeb - Full code - Lovenox for DVT prophylaxis Plan for today continue IV diuresis, continue IV antibiotics, cardiology consulted, plans on cardiac cath tomorrow, n.p.o. midnight PDMP PDMP Reviewed: Last Reviewed 11/21/24 18:08 by Spenser Awad MD Attestations 2 Medical Necessity Statement*: Patient requires hospitalization for acute hypoxic respiratory failure, diminished ejection fraction receiving with cardiac cath tomorrow Diagnoses Acute hypoxic respiratory failure J96.01 Pneumonia J18.9 Acute systolic congestive heart failure I50.21 Heart failure type: systolic Heart failure chronicity: acute Acute systolic congestive heart failure I50.21 Heart failure chronicity: acute
--- NOTE | 2024-11-23 16:03 | XR_ITS ---
WS: [id number] XR shoulder RT min 2V* [id number] REASON FOR EXAM: pain FINDINGS: No fracture or focal bone lesion. Significant narrowing of the acromial clavicular joint space with mild to moderate subchondral sclerosis and osteophytosis. There is a moderate downward slant orientation of the acromial process. The humeral head is somewhat superiorly subluxed. There is globular amorphous calcification which appears to be within the rotator cuff tendon near the insertion on the humerus. The glenohumeral joint space is not demonstrated with these views. Likely it is moderately narrowed with mild to moderate subchondral sclerosis of the glenoid and osteophytosis of the humeral head. XR/XR shoulder RT min 2V* [id number] IMPRESSION: Moderate osteoarthritis of the acromioclavicular joint. Osteoarthritis of the glenohumeral joint of uncertain severity but at least mod erate. Presumed calcific tendinosis (HADD) of the rotator cuff tendon. There may be si gnificant rotator cuff tendon tendinosis/tear with an acromial configuration co nducive to anterior impingement and the noted superior subluxation of the humer al head.
--- NOTE | 2024-11-23 16:41 | ECG_ITS ---
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
[2024-11-23] MEDS: sacubitril/valsartan 24-26 mg Tablet 1 EACH PO (16:52)
[2024-11-23 18:20] LABS: Troponin(5th) Baseline 10 ng/L (0-10)
--- NOTE | 2024-11-23 18:32 | ECG_ITS ---
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
[2024-11-23 19:16] LABS: Troponin 5 2HR 10.73 ng/L (0-10); Troponin 5 2HR Delta 0.73 ABS# (0-10)
[2024-11-23] MEDS: cefTRIAXone 1,000 mg SDV 1000 MG IVP (21:30)
[2024-11-23] MEDS: FUROsemide 10 mg/mL SDV 4mL 40 MG IVP (21:30)
[2024-11-23] MEDS: atorvastatin 40 mg Tablet PO (21:31)
[2024-11-23] MEDS: pantoprazole 40 mg SDV IVP (21:31)
[2024-11-23] MEDS: azithromycin 250 mg Tablet PO (21:31)
--- NOTE | 2024-11-23 22:06 | ECG_ITS ---
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
[2024-11-24] VITALS (23 sets, daily range): BP systolic 119–151; BP diastolic 75–108; PULSE 0–92; RESP 14–29; TEMP 36.3–37.2; O2SAT 85–98
[2024-11-24 00:05] LABS: Troponin 5 6HR 8.69 ng/L (0-10)
[2024-11-24 00:06] LABS: Troponin 5 6HR Delta -1.31 ng/L (0-12)
[2024-11-24] MEDS: cyclobenzaprine 10 mg Tablet 5 MG PO (01:58)
[2024-11-24 05:25] LABS: Basophils % 0.2 %; Eosinophils # 0.3 10^3/uL (0.0-0.8); Eosinophils % 3.5 %; Lymphocytes # 1.5 10^3/uL (0.8-4.8); Lymphocytes % 19.2 %; Mean Corpuscular HGB Conc 30.2 g/dL (30-55); Mean Corpuscular Hemoglobin 26.3 pg (27-33); Mean Platelet Volume 9.8 fL (7.4-10.4); Monocytes # 0.7 10^3/uL (0.2-0.9); Monocytes % 8.6 %; Neutrophils # 5.47 10^3/uL (1.8-7.7); Neutrophils % 68.3 %; Nucleated Red Blood Cells % 0 %; Platelet Count 252 10^3/cmm (157-399); Red Blood Count 5.06 10^6/uL (3.85-5.65); Red Cell Distribution Width 15.8 % (12.1-15.1); White Blood Count 8.02 10^3/uL (3.29-11.43)
[2024-11-24 05:48] LABS: Anion Gap 14.7 (5-19); Blood Urea Nitrogen 18 mg/dL (8-23); Calcium 8.7 mg/dL (8.5-10.5); Carbon Dioxide 30 mmol/L (22-29); Chloride 99 mmol/L (98-107); Creatinine Clr Calc Pharmacy 82.4124; Glomerular Filtration Rate 121.4 mL/min (90-130); Glucose 122 mg/dL (65-115); Osmolality Calculated 293 mOsm/kg (285-295); Potassium 3.7 mmol/L (3.5-5.1); Sodium 140 mmol/L (136-145)
[2024-11-24] MEDS: sertraline 50 mg Tablet PO (07:30)
[2024-11-24] MEDS: diphenhydrAMINE 50 mg Capsule PO (07:30)
[2024-11-24] MEDS: sacubitril/valsartan 24-26 mg Tablet 1 EACH PO ×2 (07:30→17:04)
[2024-11-24] MEDS: aspirin 81 mg EC Tablet PO (07:30)
[2024-11-24] MEDS: carvedilol 12.5 mg Tablet PO ×2 (07:31→17:04)
[2024-11-24] MEDS: sodium chloride 0.9% 1,000 ML 50 ML IV (07:31)
--- NOTE | 2024-11-24 07:36 | PC.NURSE ---
Patient refusing lasix this am for r&d lab technician. Will administer when done.
--- NOTE | 2024-11-24 08:30 | XACV_ITS ---
Exam Room: [facility] Ht: 157 cm Wt: 100 kg BSA: 2.14 m2 Gender: Female : 1960 Any Known Allergies: Other Exam Priority: Routine Procedure(s): Procedure Description: Diagnostic procedure Procedure Description: PCI procedure Procedure Description: Drug Eluting Coronary Stent Procedure Description: PTCA Procedure Description: Miscellaneous Procedure Description: ACT Procedure Description: Coronary Angiography Procedure Description: Pressure Wire Bobbi SEO; Diagnostic Cath Status: Urgent Diagnostic Findings * Left Main has no disease. * Circumflex has no disease. Large-caliber dominant calcified vessel with ectasia, no significant stenosis noted.. * Mid Left Anterior Descending: significant 75% stenosis, ZEINAB: 3 flow, iFR performed: ratio is 0.84. It is a very torturous and calcified vessel. * Mid Right Coronary Artery: severe 90% stenosis, ZEINAB: 3 flow. It is a nondominant small caliber vessel. * Coronary angiography shows left dominance. PCI Status: Urgent PCI Indication: New Onset Angina <= 2 months Interventional Findings * Mid Left Anterior Descendin% stenosis treated with a AB TREK 2.50X12 RX BALLOON, MDT R NANY 3.0X12 MESSI, MDT BRENDON EUPHORA RX [id number] BALLOON, AB TREK 2.50X15 RX BALLOON, MDT R NANY 2.5X15 MESSI, and MDT NC EUPHORA RX [id number] BALLOON. 0% residual stenosis, ZEINAB: 3 flow. * 2 overlapping drug-eluting stents were placed in the mid LAD after performing IFR which was positive at 0.84. After placing the first stent edge dissection was noted which was treated with second stent. Due to highly tortuosity and calcified nature of the vessel GuideLiner was used.. Conclusions 1. There is severe coronary artery disease with two vessel disease. 2. Mid Left Anterior Descending was treated with a Balloon, Drug Eluting Stent, Balloon, Balloon, Drug Eluting Stent, and Balloon. Recommendations * 1-Return to inpatient for close monitoring and routine cath care 2-Risk factor modification for secondary prevention 3-Statin and aspirin 81 mg life-long, if tolerated 4-Patient was pre-loaded with 600 mg of Plavix, continue Plavix 75mg p.o. daily for at least one year. We will assess at the end of one year again to continue if further or not 5-Continue optimal medical management 6-Follow up with Dr. Martines in four weeks and your primary care in 10 days. Diagnostic RX Recommendation: PCI w/o planned CABG Pressures Phase:Rest AO : / ( 0 ) @ 10:02:00 AM 144 / 87 ( 107 ) @ 10:02:00 AM / ( 0 ) @ 10:11:00 AM 1 / -1 ( 0 ) @ 11:23:00 AM 124 / 83 ( 100 ) @ 11:24:00 AM 154 / 89 ( 112 ) @ 11:36:00 AM Clinical Evaluation EBL: 5mL-10mL Procedural Details Procedure Consent Obtained. Admit Source: In Patient. Pre-Procedure Time Out. Identified patient by full name and date of as verbalized by the patient/guarantor. Does the consent match the physician's order: Yes. Accurate & Complete Informed Consent: Yes. Inpatient/Outpatient History & Physical on Chart: Yes. If H&P is completed, is and addenduem needed: No; If yes, is the addendum complete: N/A. Visualize and Verify Site with Patient/Guarantor: N/A. Relevant Radiology Images available: N/A. The risks, benefits, and alternatives of sedation and/or procedure were discussed by physician. The patient agrees to continue. Procedure started. [facility] Clinical Fraility Score: 3: Managing Well. Fur Dresser Indications: Other. Chest Pain Symptom Assessment: Typical Angina Symptoms. Cardiovascular Instability: No. Correct patient, site and procedure confirmed by cath team. Current diagnosis: New Onset Heart Failure. PERRLA. Strong, equal hand open source developer bilaterally. Lungs clear x 5 lobes. IV Site on Arrival: 20 gauge in the left hand. IV Site on Arrival: 20 gauge in the right hand. IV Fluids: 0.9% NaCl at KVO. 0 mL infused prior to labor utilization superintendent. Pre Procedural Pulses: bilateral dorsalis pedis was 2+. Pre Procedural Pulses: bilateral posterior tibial was 2+. Pre Procedural Pulses: bilateral radial was 3+. Oxygen started at 3liters/min via nasal canula. bilateral groins was prepped with chloroprep then draped in the usual sterile fashion. right radial was prepped with chloroprep then draped in the usual sterile fashion. Physician notified. Baseline sample Acquired. HR: 84 BPM. Physician arrived. Physician scrubbed in. Baseline sample Acquired. HR: 87 BPM. Immediate Pre-Procedure Time Out. Correct Patient: Yes; Correct Procedure: Yes; Correct Site: Yes; Correct Patient Position: Yes; Correct Supplies: Yes; Dried Flammable Prep: Yes; Blood Products Available: N/A;. Lidocaine 1% infiltrated to the right radial. Arterial access obtained. A 5 monegasque Ellis catheter in over wire. Multiple views taken of left coronary artery. Catheter redirected to the RCA. Multiple views taken of right coronary artery. Physcian review of films. Catheter removed over the wire. 6 monegasque XB 3 guide catheter was inserted over the wire. Guide seated in the LCS. IFR guidewire was advanced through the guide catheter to lesion in the mid LAD. Wire normalized proximal to lesion then advanced across lesion. Runthrough wire inserted as crossing support. Guidewire advanced across lesion. IFR wire advanced across lesion. Power cycled during procedure. Awaiting boot up. Wires removed by MD. ACT drawn. Results 237 seconds. Therapeutic limits - pre-heparin administration 90-150 seconds and monitoring heparin during a vascular procedure >250 seconds. Guide disenguaged and removed over the wire. Sheath to KVO at this time to maintain patency. Current Diagnosis : Chest Pain. 6 monegasque XB 3 guide catheter was inserted over the wire. Guide seated in the LCS. ACT drawn. Results 238 seconds. Therapeutic limits - pre-heparin administration 90-150 seconds and monitoring heparin during a vascular procedure >250 seconds. IFR guidewire was advanced through the guide catheter to lesion in the mid LAD. Wire normalized proximal to lesion then advanced across lesion. Runthrough wire inserted as crossing support. Guidewire advanced across lesion. IFR wire advanced across lesion. IFR SPOT 0.84. IFR wire removed. Guideliner inserted. Inflation number : 1 A AB TREK 2.50X12 RX BALLOON was prepped and advanced across the Mid LAD , then inflated to 18 YASMEEN for 0:12 seconds. Inflation Number : 2 A MDT R NANY 3.0X12 MESSI -Lot Number# [id number] EXP 04/05/27 was prepped and advanced across the Mid LAD. The stent was deployed at 12 YASMEEN for 0:11 seconds. Stent balloon out over wire. Results checked. Inflation number : 3 A MDT NC EUPHORA RX [id number] BALLOON was prepped and advanced across the Mid LAD , then inflated to 14 YASMEEN for 0:14 seconds. Inflation number: 4 The MDT NC EUPHORA RX 3.98K59FE BALLOON was reinflated across the Mid LAD, to 14 YASMEEN for 0:09 seconds. Inflation number: 5 The MDT NC EUPHORA RX 3.63P74TT BALLOON was reinflated across the Mid LAD, to 14 YASMEEN for 0:10 seconds. Balloon out. Results checked. Inflation number : 6 A AB TREK 2.50X15 RX BALLOON was prepped and advanced across the Mid LAD , then inflated to 8 YASMEEN for 0:09 seconds. Inflation number: 7 The AB TREK 2.50X15 RX BALLOON was reinflated across the Mid LAD, to 12 YASMEEN for 0:10 seconds. Balloon out. Results checked. Inflation Number : 8 A MDT R NANY 2.5X15 MESSI -Lot Number# [id number] EXP 08/29/2027 was prepped and advanced across the Mid LAD. The stent was deployed at 12 YASMEEN for 0:14 seconds. Inflation number: 9 The stent balloon was then re-inflated across the Mid LAD to 14 YASMEEN for 0:08 seconds. Stent balloon out over the wire. Results checked. Inflation number : 10 A MDT NC EUPHORA RX 2.71P42PC BALLOON was prepped and advanced across the Mid LAD , then inflated to 10 YASMEEN for 0:17 seconds. Inflation number: 11 The MDT NC EUPHORA RX 2.54H24MG BALLOON was reinflated across the Mid LAD, to 10 YASMEEN for 0:11 seconds. Balloon out. Results checked. Wire and guideliner out. Results checked. Guide catheter out. [id number]. Contrast type used: Omnipaque 300 mgI/mL, 500 mL bottle. ACT drawn. Results 299 seconds. Therapeutic limits - pre-heparin administration 90-150 seconds and monitoring heparin during a vascular procedure >250 seconds. Post-op diagnosis: Significant mid LAD stenosis; Treated with two Drug Eluting Stents. Physician review of films. Physician scrubbed out. A TR Band was successful obtaining hemostatsis at the Right Radial artery insertion site. TR band placed. Hemostasis obtained. Post Procedure: Pulses reassessed and unchanged. PERRLA. Strong, equal hand open source developer bilaterally. PERRLA. Strong, equal hand open source developer bilaterally. No VTE prophylaxis required. Medication's Wasted: Lidocaine 1% = 18 ml , Nitro =49.8 mg, Fentanyl- 25 mcg. Total IV fluids: 125 mL. Fluoro: 18:06. Complications: None. Estimated blood loss: 5mL-10mL. Responsiveness - Normal response to verbal stimuli; alert and oriented, PERRLA. Airway - Unaffected, no intervention required; spontaneous ventilation. Circulation: W/N/L, pulses unchanged. Nausea/Vomiting: No. Procedure completed. Vital chart was stopped. Patient transferred by bed to 1st floor. Access Site Site: Right Radial artery Sheath Size: 6 Fr Hemostasis Method: TR Band Hemostasis Success: Successful Procedure Medications Start: 8:50 AM Stop: 8:50 AM Medication: Versed Amount: 1 mg Route: I.V. Start: 8:50 AM Stop: 8:50 AM Medication: Fentanyl Amount: 50 mcg Route: I.V. Start: 8:54 AM Stop: 8:54 AM Medication: Fentanyl Amount: 25 mcg Route: I.V. Start: 9:00 AM Stop: 9:00 AM Medication: Nitrogylcerin Amount: 200 mcg Route: I.A. Start: 9:01 AM Stop: 9:01 AM Medication: Heparin Amount: 5000 units Route: I.V. Start: 9:28 AM Stop: 9:28 AM Medication: Versed Amount: 1 mg Route: I.V. Start: 9:28 AM Stop: 9:28 AM Medication: Fentanyl Amount: 25 mcg Route: I.V. Start: 9:29 AM Stop: 9:29 AM Medication: Heparin Amount: 3000 units Route: I.V. Start: 9:32 AM Stop: 9:32 AM Medication: Fentanyl Amount: 25 mcg Route: I.V. Start: 9:51 AM Stop: 9:51 AM Medication: Fentanyl Amount: 25 mcg Route: I.V. Start: 9:59 AM Stop: 9:59 AM Medication: Fentanyl Amount: 25 mcg Route: I.V. Start: 10:06 AM Stop: 10:06 AM Medication: Fentanyl Amount: 25 mcg Route: I.V. Start: 10:23 AM Stop: 10:23 AM Medication: Versed 1 mg and Fentanyl 25 mcg Amount: 1 Route: I.V. Start: 10:29 AM Stop: 10:29 AM Medication: Heparin Amount: 3000 units Route: I.V. Start: 10:40 AM Stop: 10:40 AM Medication: Fentanyl Amount: 25 mcg Route: I.V. Start: 10:44 AM Stop: 10:44 AM Medication: Versed 1 mg and Fentanyl 25 mcg Amount: 1 Route: I.V. Start: 10:46 AM Stop: 10:46 AM Medication: Heparin Amount: 1000 units Route: I.V. Start: 10:47 AM Stop: 10:47 AM Medication: Aggrastat 12.5 mg/250 mL Amount: 50 ml Route: I.V. bolus Start: 10:49 AM Stop: 10:49 AM Medication: Aggrastat 12.5 mg/250 mL Amount: 18 ml/hr Route: I.V. drip Start: 11:11 AM Stop: 11:11 AM Medication: Plavix Amount: 600 mg Route: P.O. Start: 11:17 AM Stop: 11:17 AM Medication: Aspirin Amount: 162 mg Route: P.O. I, the attending physician, have reviewed and verified all procedure medications. Yes, all medications given per verbal order History/Risk Factors Hypertension: Yes Dyslipidemia: Yes Peripheral Arterial Disease (PAD): No Myocardial Infarction (LA): No Obesity: Yes Renal Disease: No Tobacco Use: Current/Recent(w/in 1 year) Prior Interventions PCI: No CABG: No Valve Surgery: No Report Signatures Finalized by Shannen Martines MD on 11/28/2024 11:14 PM
--- NOTE | 2024-11-24 08:51 | W.PM.OPSUD ---
Surgery/Procedure H&P Update DATE OF PROCEDURE: November 24, 2024 DATE H&P PERFORMED: 11/22/24 H&P UPDATE INFORMATION: I have reviewed H&P completed within last 30 days, I have examined patient prior to procedure and No changes to prior documentation PREOP DIAGNOSIS: New onset of heart failure PRIMARY INDICATION FOR PROCEDURE: LV dysfunction PLANNED PROCEDURE: Operation Date: 11/24/24 08:30 Proposed Procedures p Cardiac Catheterization(Left) - Shannen Martines MD PATIENT REASSESSED PRIOR TO SEDATION, WITH NO CHANGE NOTED: Yes PHYSICAL EXAM: alert, oriented x 3, clear to auscultation bilaterally, regular rate & rhythm and operative site marked AIRWAY EVAL/ANESTHESIA PLAN: ASA II, Risks, benefits & alternatives of sedation and/or procedure discussed and Patient agrees to continue as planned ADDITIONAL INFORMATION: Patient has been explained all risk-benefit and alternative for the procedure. She understand 2% risk of stroke major bleed. Patient understand 5 to 6% risk of minor bleeding bruising infection hematoma contrast induced nephropathy pseudoaneurysm urgent emergent vascular or bypass surgery. Patient understood and would like to proceed with it.
--- NOTE | 2024-11-24 10:03 | PC.NURSE ---
Patient off the floor to slab worker.
--- NOTE | 2024-11-24 11:19 | PM.PROC ---
Procedure Note: Pre-procedure diagnosis: chf, lv dysfucntion new onset Post-procedure diagnosis: same Procedure: Left heart cath was performed for new onset of heart failure and severe LV dysfunction #1 left main is calcified but not significantly stenotic #2 LAD is calcified torturous vessel which has mid moderate to severe eccentric stenosis, it was IFR significantly positive #3 left circumflex is dominant large-caliber vessel without significant stenosis #4 RCA is nondominant small caliber vessel with mid 80-90% stenosis since it is nondominant small caliber vessel and not contributing to LV dysfunction it was left alone for medical management IFR of mid LAD: 0.87 significant PCI to mid LAD with 2 overlapping drug-eluting stent postdilated with noncompliant balloon. Excellent angiographic result with ZEINAB-3 flow was noted at the end of the case. Due to edge dissection of the proximal stent second stent was placed in overlapping fashion. Plan: Continue Aggrastat for 2 hours Patient is loaded with 600 mg of Plavix and aspirin 162 mg in the Workers' Compensation Claims Examiner since she already had aspirin on board Continue statin beta-una and Entresto Radial band as per protocol Full note to be dictated Coding Level of Care Code Acute Code for Pedrito Spence
--- NOTE | 2024-11-24 11:46 | PC.NURSE ---
Received patient from aquatic life laborer s/p [facility] via right radial artery with TR band in place. No s/s of bleeding or hematoma formation observed. Instructed patient on site care and restrictions. Patient verbalized complete understanding.
--- NOTE | 2024-11-24 13:52 | P.PN_ITS ---
<Statement entered by Shannen Martines MD - 11/25/24 22:33> Patient was evaluated and cared for in conjunction with an advanced practice practitioner. I personally examined the patient and reviewed the chart and all pertinent data including imaging, telemetry, and laboratory results. I discussed the patient in detail with the advanced practice practitioner. Please see their note for complete H&P testing result and agreed upon plan of care for the patient. Subjective 2 Subjective: Patient doing well status post stent to the LAD. She appears well compensated. She has been started on Entresto and is tolerating well. Will continue Coreg at 12.5 twice daily. Continue Lasix 40 every 12. Creatinine stable at 0.6. Denies any shortness of breath. Vitals/I&O/Wt Last Vital Signs Temp 98.7 F 11/24/24 11:57 Pulse 82 11/24/24 12:00 Resp 20 H 11/24/24 11:59 BP 150/95 11/24/24 11:59 Pulse Ox 93 11/24/24 11:59 O2 Del Method Nasal Cannula 11/24/24 11:57 O2 Flow Rate 4 11/24/24 11:57 11/23/24 11/24/24 11/24/24 22:59 06:59 14:59 Intake Total 240 / 659.167 0 / 659.167 Balance 240 / 659.167 0 / 659.167 Weight last 48 hrs Weight 214 lb 4.8 oz Weight 220 lb Physical Exam 2 Narrative: General: No apparent distress, healthy appearing, well nourished HENMT: normoceophalic Muskuloskeletal: Full ROM Respiratory: Normal respiratory effort, clear to auscultation bilaterally throughout all lung bruno, no use of accessory muscles Cardio: No JVD, regular rate, regular rhythm, S1 S2 normal, no murmurs, peripheral pulses 2+ radial palpated bilaterally GI: Normal to inspection, nondistended Extremities: Full ROM, normal, normal capillary refill, no cyanosis or edema Neuro: Alert and oriented x4, no focal motor deficits Psych: Affect normal, denies suicidal ideation, mental status grossly normal Skin: No rashes or lesions noted, no wounds Data 11/24/24 04:46 11/24/24 04:46 Micro: Microbiology 11/22/24 23:00 Gram Stain - Final Sputum - Expectorated Sputum Sputum Culture - Preliminary A&P Assessment and plan (1) Systolic CHF: (2) CHF (congestive heart failure): (3) HTN (hypertension): (4) Moderate tobacco use disorder: Plan Patient status post stent to the LAD. Will continue Coreg 12.5 twice daily continue Entresto twice daily, aspirin, Plavix, Lasix every 12. If blood pressure continues to stay elevated despite starting the patient on Entresto may increase Coreg tomorrow. PDMP PDMP Reviewed: Not Reviewed Attestations 2 Medical Necessity Statement*: Prior to primary Coding Level of Care Code Acute Code for g Fwd Diagnoses Acute systolic congestive heart failure I50.21 Heart failure chronicity: acute Acute systolic congestive heart failure I50.21 Heart failure type: systolic Heart failure chronicity: acute Primary hypertension I10 Hypertension type: primary hypertension Moderate tobacco use disorder F17.200
--- NOTE | 2024-11-24 14:26 | P.PN_ITS ---
Subjective 2 Subjective: Patient was seen this morning, seen after cardiac catheterization, she is sitting up in bed, having her lunch, denies any chest pain, no palpitations, no fevers, no chills, no cough Vitals/I&O/Wt Last Vital Signs Temp 98.7 F 11/24/24 11:57 Pulse 82 11/24/24 12:00 Resp 20 H 11/24/24 11:59 BP 150/95 11/24/24 11:59 Pulse Ox 93 11/24/24 11:59 O2 Del Method Nasal Cannula 11/24/24 11:57 O2 Flow Rate 4 11/24/24 11:57 11/23/24 11/24/24 11/24/24 22:59 06:59 14:59 Intake Total 240 / 659.167 0 / 659.167 360 / 360 Balance 240 / 659.167 0 / 659.167 360 / 360 Weight last 48 hrs Weight 97.205 kg Weight 99.79 kg Physical Exam 2 Const: COMMON NORMALS: no acute distress and patient oriented x3 Neck/C-Spine: COMMON NORMALS: no JVD Resp: COMMON NORMALS: normal respiratory effort, No retractions, No use of accessory muscles and clear to auscultation bilaterally AUSCULTATION: clear to auscultation bilaterally Cardio: COMMON NORMALS: no JVD, regular rate, regular rhythm, S1 normal heart sound present and S2 normal heart sound present RATE: regular rate RHYTHM: regular rhythm HEART SOUNDS: S1 normal heart sound present and S2 normal heart sound present GI: COMMON NORMALS: Normal to inspection, nondistended, normoactive bowel sounds present and non-tender Extremity: COMMON NORMALS: no pedal edema Neuro: COMMON NORMALS: patient oriented x3 Psych: COMMON NORMALS: mental status grossly normal Data 11/24/24 04:46 11/24/24 04:46 Micro: Microbiology 11/22/24 23:00 Gram Stain - Final Sputum - Expectorated Sputum Sputum Culture - Preliminary A&P Assessment and plan (1) Acute hypoxic respiratory failure: (2) Pneumonia: (3) CHF (congestive heart failure): (4) Systolic CHF: Plan Acute hypoxic respiratory failure CT/CT angio chest PE protcl [id number] IMPRESSION: 1. No evidence of pulmonary embolism. 2. Diffuse ground-glass opacities with areas of mosaic attenuation throughout the lungs. Findings are nonspecific and can be seen with pulmonary edema and/or atypical infection in the acute setting. Findings may also be seen with air trapping from chronic small airways disease. 3. Mildly enlarged mediastinal lymph nodes may be reactive. Consider follow-up CT chest in 2-3 months to evaluate for improvement. 4. Mildly dilated main pulmonary artery can be seen with pulmonary hypertension. - Multifactorial - Concern for atypical pneumonia - Concerns for fluid overload given elevated BNP, systolic chf echo CONCLUSIONS LV systolic function is moderately reduced with EF of 35-40% Severely dilated left atrium Moderate mitral regurgitation Mild aortic regurgitation Mild tricuspid regurgitation Moderate pulmonary hypertension Mild pulmonic regurgitation No comparison studies are available. Plan - Monitor cardiac stepdown unit -sputum cultures, blood cultures, - lasix 40mg iv bid, monitor urine output - Cardiac echo as above, given diminished, will consult cardiology, plan to cardiac cath , s/p cardiac stenting, started on aspirin, plavix, coreg, enteresto - Monitor respiratory status - DuoNeb - Full code - Lovenox for DVT prophylaxis Plan for today monitor after cardiac cath, rigo PDMP PDMP Reviewed: Last Reviewed 11/21/24 18:08 by Spenser Awad MD Attestations 2 Medical Necessity Statement*: Patient requires hospitalization for NSTEMI, status post cardiac catheterization, stenting, CHF, pneumonia Diagnoses Acute hypoxic respiratory failure J96.01 Pneumonia J18.9 Acute systolic congestive heart failure I50.21 Heart failure type: systolic Heart failure chronicity: acute Acute systolic congestive heart failure I50.21 Heart failure chronicity: acute
--- NOTE | 2024-11-24 16:38 | PC.NURSE ---
Initiated TR band removal at ~1240 removing 1-2ml of air every 20-30min until all air removed at this time. Band removed. No s/s of bleeding or hematoma formation observed. Instructed patient on site care with restrictions. Patient verbalized complete understanding. Covered site with band aid.
[2024-11-24] MEDS: doxycycline 100 mg Tablet PO (17:04)
[2024-11-24] MEDS: atorvastatin 40 mg Tablet PO (21:12)
[2024-11-24] MEDS: enoxaparin 40 mg/0.4 mL Syringe SUBCUT (21:12)
[2024-11-25] VITALS (7 sets, daily range): BP systolic 105–142; BP diastolic 62–88; PULSE 70–90; RESP 14–23; TEMP 36.6–37.6; O2SAT 94–97; BMI 34.2
[2024-11-25] MEDS: acetaminophen 325 mg Tablet 650 MG PO (03:41)
[2024-11-25 04:08] LABS: Basophils % 0.2 %; Eosinophils # 0.1 10^3/uL (0.0-0.8); Eosinophils % 1.4 %; Hematocrit 42.4 % (36-47); Lymphocytes # 1.4 10^3/uL (0.8-4.8); Lymphocytes % 14.6 %; Mean Corpuscular HGB Conc 30.7 g/dL (30-55); Mean Corpuscular Hemoglobin 26.5 pg (27-33); Mean Corpuscular Volume 86.5 fl (85-98); Mean Platelet Volume 9.5 fL (7.4-10.4); Monocytes # 0.9 10^3/uL (0.2-0.9); Monocytes % 9.3 %; Neutrophils # 7.12 10^3/uL (1.8-7.7); Nucleated Red Blood Cells % 0 %; Platelet Count 281 10^3/cmm (157-399); Red Cell Distribution Width 15.7 % (12.1-15.1); White Blood Count 9.61 10^3/uL (3.29-11.43)
[2024-11-25 04:30] LABS: Blood Urea Nitrogen 16 mg/dL (8-23); Calcium 8.8 mg/dL (8.5-10.5); Carbon Dioxide 30 mmol/L (22-29); Chloride 99 mmol/L (98-107); Creatinine Clr Calc Pharmacy 82.4124; Glomerular Filtration Rate 149.8 mL/min (90-130); Glucose 121 mg/dL (65-115); Osmolality Calculated 288 mOsm/kg (285-295); Sodium 138 mmol/L (136-145)
[2024-11-25] MEDS: aspirin 81 mg EC Tablet PO (08:39)
[2024-11-25] MEDS: doxycycline 100 mg Tablet PO (08:39)
[2024-11-25] MEDS: carvedilol 12.5 mg Tablet PO (08:39)
[2024-11-25] MEDS: sacubitril/valsartan 24-26 mg Tablet 1 EACH PO (08:39)
[2024-11-25] MEDS: clopidogrel 75 mg Tablet PO (08:39)
[2024-11-25] MEDS: sertraline 50 mg Tablet PO (08:39)
--- NOTE | 2024-11-25 11:14 | PC.SOCIAL ---
IMM Updated Updated pt on IMM. No questions voiced. Provided pt a copy. Initialed, dated, & timed copy in chart.
--- NOTE | 2024-11-25 12:00 | P.DS_ITS ---
Discharge Providers Date of Admission: 11/21/24 18:04 Date of Discharge: November 25, 2024 Attending Provider at Admission: Collette Hensley MD Attending Provider at Discharge: Spenser Awad MD Primary Care Provider: Jose Pelayo MD Diagnoses at Discharge Discharge Diagnosis (1) Acute hypoxic respiratory failure: Status: Acute (2) Pneumonia: Status: Acute (3) CHF (congestive heart failure): Status: Acute Qualifiers: Heart failure chronicity: acute Heart failure type: systolic Qualified Code(s): I50.21 - Acute systolic (congestive) heart failure (4) Systolic CHF: Status: Acute Qualifiers: Heart failure chronicity: acute Qualified Code(s): I50.21 - Acute systolic (congestive) heart failure Reason for Visit Reason for Visit: sob Hospital Course Hospital Course Geno Dubose is a 64 year old female with a past medical history of hypertension, obesity, history of smoking in the past, who presents [facility] due to cough, sinus symptoms, shortness of breath, lower extremity edema. Currently patient is alert oriented x 3, following all command s, she is sitting up to side of bed, complaining of feeling short of breath, with lower extreme edema. She tells me her symptoms started a few weeks ago when she was diagnosed with congestion, placed on antibiotics, however she continues to have symptomatology persisting to sinusitis she was given multiple doses of antibiotics but continues to have a cough, congestion, she also reports shortness of breath, shortness of breath exertion, orthopnea, paroxysmal nocturnal dyspnea and edema, she adamantly denies any chest pain or palpitations This is a 64 old female who presents [facility] for acute hypoxic respiratory failure multifactorial from systolic CHF exacerbation, atypical pneumonia For atypical pneumonia received inpatient antibiotics overall clinically proved, discharged on doxycycline For systolic CHF exacerbation, received IV diuretics, she diuresed quite well, overall clinically improved, will be discharged on Lasix therapy as outpatient as needed, with potassium Therapy For patient's NSTEMI, EF reduced to 35 to 40%, cardiology consulted underwent coronary angiography, status post 2 cardiac stents to LAD -Patient tolerated procedure well, no recurrent chest pain -Patient will be discharged on aspirin, statin, Plavix, Coreg, Entresto -Patient was advised of compliance with aspirin, Plavix, discussed morbidity or mortality, she was understanding all questions answered, agreed to proceed -If any recurrent chest pain go to the emergency room -Follow-up with cardiology as outpatient Patient also reports right shoulder pain, pain with range of motion, this started when she was handcuffed by police officers. X-ray right shoulder XR/XR shoulder RT min 2V* [id number] IMPRESSION: Moderate osteoarthritis of the acromioclavicular joint. Osteoarthritis of the glenohumeral joint of uncertain severity but at least moderate. Presumed calcific tendinosis (HADD) of the rotator cuff tendon. There may be significant rotator cuff tendon tendinosis/tear with an acromial configuration conducive to anterior impingement and the noted superior subluxation of the humeral head. -Discussed with patient to follow-up with primary care -Referred to Dr. Shrestha Physical Exam Const: COMMON NORMALS: no acute distress and patient oriented x3 Resp: COMMON NORMALS: normal respiratory effort, No retractions, No use of accessory muscles and clear to auscultation bilaterally AUSCULTATION: clear to auscultation bilaterally Cardio: COMMON NORMALS: regular rate, regular rhythm, S1 normal heart sound p resent and S2 normal heart sound present RATE: regular rate RHYTHM: regular rhythm HEART SOUNDS: S1 normal heart sound present and S2 normal heart sound present GI: COMMON NORMALS: Normal to inspection, nondistended, normoactive bowel sounds present and non-tender Extremity: COMMON NORMALS: no pedal edema Neuro: COMMON NORMALS: patient oriented x3 Psych: COMMON NORMALS: mental status grossly normal Discharge Data Studies Completed and Pending Completed Studies During Hospitalization Category Date Time Status CTA chest [CT angio chest PE protcl [id number]] Stat Cat Scan 11/21/24 16:22 Completed XR cervical spine 3V* [id number] Routine Exams 11/23/24 16:03 Completed XR chest 1V portable [id number] Stat Exams 11/21/24 15:18 Completed XR shoulder RT min 2V* [id number] Routine Exams 11/23/24 16:03 Completed CV. echo complete* [id number] Stat Ultrasound 11/21/24 18:11 Completed Pending at discharge Category Date Time Status MONITOR TECHNICIAN request for service Routine Exams 11/24/24 08:30 Taken Blood Culture Stat Lab 11/21/24 19:34 Results Sputum Culture and Gram Stain Stat Lab 11/22/24 23:00 Results Radiology Impressions Chest X-Ray 11/21/24 15:18 IMPRESSION: 1. Mild bibasilar opacities favor atelectasis. Infiltrate not excluded in the correct clinical setting. 2. Cardiomegaly. Chest CTA 11/21/24 16:22 IMPRESSION: 1. No evidence of pulmonary embolism. 2. Diffuse ground-glass opacities with areas of mosaic attenuation throughout the lungs. Findings are nonspecific and can be seen with pulmonary edema and/or atypical infection in the acute setting. Findings may also be seen with air trapping from chronic small airways disease. 3. Mildly enlarged mediastinal lymph nodes may be reactive. Consider follow-up CT chest in 2-3 months to evaluate for improvement. 4. Mildly dilated main pulmonary artery can be seen with pulmonary hypertension. Cervical Spine X-Ray 11/23/24 16:03 IMPRESSION: Limited examination. Postop anterior fusion C3-C4. No acute abnormality. Shoulder X-Ray 11/23/24 16:03 IMPRESSION: Moderate osteoarthritis of the acromioclavicular joint. Osteoarthritis of the glenohumeral joint of uncertain severity but at least moderate. Presumed calcific tendinosis (HADD) of the rotator cuff tendon. There may be significant rotator cuff tendon tendinosis/tear with an acromial configuration conducive to anterior impingement and the noted superior subluxation of the humeral head. Laboratory Results WBC 9.61 10^3/uL (3.29-11.43) 11/25/24 03:17 RBC 4.90 10^6/uL (3.85-5.65) 11/25/24 03:17 Hgb 13.00 g/dL (11.27-16.99) 11/25/24 03:17 Hct 42.4 % (36-47) 11/25/24 03:17 MCV 86.5 fl (85-98) 11/25/24 03:17 MCH 26.5 pg (27-33) L 11/25/24 03:17 MCHC 30.7 g/dL (30-55) 11/25/24 03:17 RDW 15.7 % (12.1-15.1) H 11/25/24 03:17 Plt Count 281 10^3/cmm (157-399) 11/25/24 03:17 MPV 9.5 fL (7.4-10.4) 11/25/24 03:17 Neut % (Auto) 74.0 % 11/25/24 03:17 Lymph % (Auto) 14.6 % 11/25/24 03:17 Lyon % (Auto) 9.3 % 11/25/24 03:17 Eos % (Auto) 1.4 % 11/25/24 03:17 Baso % (Auto) 0.2 % 11/25/24 03:17 Neut # (Auto) 7.12 10^3/uL (1.8-7.7) 11/25/24 03:17 Lymph # (Auto) 1.4 10^3/uL (0.8-4.8) 11/25/24 03:17 Lyon # (Auto) 0.9 10^3/uL (0.2-0.9) 11/25/24 03:17 Eos # (Auto) 0.1 10^3/uL (0.0-0.8) 11/25/24 03:17 Baso # (Auto) 0.0 10^3/uL (0.0-0.1) 11/25/24 03:17 Nucleated RBC % (auto) 0 % 11/25/24 03:17 Nucleated RBCs # 0.0 /100WBC 11/25/24 03:17 D-Dimer 2.22 ug/mLFEU (0-0.59) H 11/21/24 15:40 Sodium 138 mmol/L (136-145) 11/25/24 03:17 Potassium 4.0 mmol/L (3.5-5.1) 11/25/24 03:17 Chloride 99 mmol/L (98-107) 11/25/24 03:17 Carbon Dioxide 30 mmol/L (22-29) H 11/25/24 03:17 Anion Gap 13.0 (5-19) 11/25/24 03:17 BUN 16 mg/dL (8-23) 11/25/24 03:17 Creatinine 0.5 mg/dL (0.5-0.9) 11/25/24 03:17 GFR Calculation 149.8 mL/min (90-130) H 11/25/24 03:17 Glucose 121 mg/dL (65-115) H 11/25/24 03:17 Calculated Osmolality 288 mOsm/kg (285-295) 11/25/24 03:17 Calcium 8.8 mg/dL (8.5-10.5) 11/25/24 03:17 Magnesium 1.9 mg/dL (1.7-2.3) 11/22/24 03:53 Ferritin 141 ng/mL (15-150) 11/21/24 18:05 Total Bilirubin 0.8 mg/dL (0.15-1.2) 11/22/24 03:53 AST 42 U/L (0-32) H 11/22/24 03:53 ALT 40 U/L (0-33) H 11/22/24 03:53 Alkaline Phosphatase 144 U/L (35-105) H 11/22/24 03:53 Troponin T 5th Gen ng/L 11 ng/L (0-10) H 11/23/24 11:00 Troponin T Baseline 10 ng/L (0-10) 11/23/24 17:16 Troponin T 120 Minute 10.73 ng/L (0-10) H 11/23/24 18:43 Delta Troponin T 0.73 ABS# (0-10) 11/23/24 18:43 Troponin T Hi Sens 6Hr 8.69 ng/L (0-10) 11/23/24 23:10 Troponin T Hi Sens 6Hr Delta -1.31 ng/L (0-12) L 11/23/24 23:10 C-Reactive Protein 19.1 mg/L (0.0-4.9) H 11/21/24 15:40 NT-Pro-B Natriuret Pep 3995 pg/mL (0-125) H 11/22/24 03:53 Total Protein 7.1 g/dL (6.6-8.7) 11/22/24 03:53 Albumin 3.6 g/dL (3.5-5.2) 11/22/24 03:53 Globulin 3.5 g/dL (1.3-4.6) 11/22/24 03:53 Triglycerides 115 mg/dL (0-150) 11/21/24 18:05 Cholesterol 152 mg/dL (0-200) 11/21/24 18:05 LDL Cholesterol, Calc 95 mg/dL (50-129) 11/21/24 18:05 HDL Cholesterol 34 mg/dL (60-100) L 11/21/24 18:05 LDL/HDL Ratio 2.79 RATIO (0.00-3.22) 11/21/24 18:05 Cholesterol/HDL Ratio 4.47 mg/dL (0.0-4.40) H 11/21/24 18:05 Lipase 26 U/L (13-60) 11/21/24 18:05 Procalcitonin 0.05 ng/mL (0-0.5) 11/21/24 15:40 TSH 3.41 uIU/mL (0.27-4.20) 11/21/24 18:05 Urine Color Yellow (Yellow) 11/22/24 09:45 Urine Appearance Clear (CLEAR) 11/22/24 09:45 Urine pH 7.5 (5-7) 11/22/24 09:45 Ur Specific Lipscomb 1.018 (1.005-1.030) 11/22/24 09:45 Urine Protein Negative (Negative) 11/22/24 09:45 Urine Glucose (UA) Negative (Normal) 11/22/24 09:45 Urine Ketones Negative (Negative) 11/22/24 09:45 Urine Blood Negative (Negative) 11/22/24 09:45 Urine Nitrate Negative (Negative) 11/22/24 09:45 Urine Bilirubin Negative (Negative) 11/22/24 09:45 Urine Urobilinogen 1.0 mg/dL (Negative) 11/22/24 09:45 Ur Leukocyte Esterase Negative (Negative) 11/22/24 09:45 Urine RBC 0-2 /hpf (0-2) 11/22/24 09:45 Urine WBC 0-5 /hpf (0-5) 11/22/24 09:45 Ur Squamous Epith Cells 0-5 /hpf (0-5) 11/22/24 09:45 Amorphous Sediment Not Reportable 11/22/24 09:45 Urine Bacteria None seen /hpf (NONE) 11/22/24 09:45 Hyaline Casts 0-4 /lpf H 11/22/24 09:45 Hepatitis A IgM Ab Non-reactive (Nonreactive) 11/22/24 03:53 Hep Bs Antigen Non-reactive (Nonreactive) 11/22/24 03:53 Hep B Core IgM Ab Non-reactive (Nonreactive) 11/22/24 03:53 Hepatitis C Antibody Non-reactive (Nonreactive) 11/22/24 03:53 Influenza A (PCR) Negative (Negative) 11/22/24 09:00 Influenza Type B (PCR) Negative (Negative) 11/22/24 09:00 RSV (PCR) Negative (Negative) 11/22/24 09:00 SARS-CoV-2 (PCR) Negative (Negative) 11/22/24 09:00 Vitals Last Vital Signs Temp 97.8 F 11/25/24 11:38 Pulse 70 11/25/24 11:38 Resp 18 11/25/24 11:38 BP 105/62 11/25/24 11:38 Pulse Ox 96 11/25/24 08:00 O2 Del Method Nasal Cannula 11/25/24 08:00 O2 Flow Rate 2 11/25/24 07:49 Discharge Plan Discharge Patient Disposition: Home Condition: Stable Prescriptions: New atorvastatin 40 mg Tablet 40 mg PO BEDTIME 30 Days Qty: 30 0RF clopidogrel 75 mg Tablet 75 mg PO DAILY 30 Days Qty: 30 0RF doxycycline monohydrate 100 mg Tablet 100 mg PO BID 5 Days Qty: 10 0RF nitroglycerin 0.4 mg Tablet, Sublingual 0.4 mg sublingual Q5M PRN (Reason: Chest Pain) 30 Days Qty: 30 0RF Entresto 24-26 mg Tablet 1 tab PO BID 30 Days Qty: 60 0RF furosemide [Lasix] 20 mg tablet 20 mg PO DAILY PRN (Reason: edema) 30 Days Qty: 30 0RF Rx Instructions: Take 1 tab daily as needed for shortness of breath or lower extremity edema or weight gain more than 3 pounds potassium chloride [Klor-Con 10] 10 mEq tablet extended release 10 meq PO DAILY PRN (Reason: Take with Lasix as needed) 30 Days Qty: 30 0RF Continued albuterol sulfate 90 mcg/actuation HFA aerosol inhaler 2 puff inhalation Q6H PRN (Reason: shortness of breath or wheezing) Qty: 8.5 0RF cyclobenzaprine 10 mg tablet 10 mg PO TID Qty: 30 2RF Rx Instructions: PRN order acetaminophen [Tylenol Extra Strength] 500 mg tablet 1,000 mg PO Q8H PRN (Reason: pain) Qty: 30 0RF loratadine [Claritin] 10 mg tablet 10 mg PO DAILY sertraline 50 mg tablet 50 mg PO DAILY Qty: 90 1RF aspirin 81 mg tablet,delayed release (DR/EC) 81 mg PO DAILY 30 Days Qty: 30 0RF carvedilol 12.5 mg tablet 12.5 mg PO BID 30 Days Qty: 60 0RF Rx Instructions: must administer with a meal/food Discontinued meloxicam 15 mg tablet 15 mg PO DAILY Qty: 90 1RF Discharge Orders: Discharge Order (Routine); Ordered 11/25/24 Ordered By: Spenser Awad Other Ambulatory Orders: DME: Oxygen (Order) Location: None Selected Ordered By: Spenser Awad Referrals: [facility] [Outside] Jann Shrestha DO [Physician, Orthopedics] - 1 month Referral Note: right shouler pain Heather Preciado FNP [Nurse Practitioner, Cardiology] - 12/07/24 1:30 pm Jose Pelayo MD [Primary Care Provider, [facility]] - 12/06/24 9:30 am Discharge Diet: Cardiac Discharge Activity: Resume usual activity Patient Instructions: Nitroglycerin (By mouth), Doxycycline (By mouth), Atorvastatin (By mouth), Clopidogrel (By mouth), Sacubitril/Valsartan (By mouth), Heart Failure (DC), Coronary Angioplasty (DC), How to Stop Smoking (DC), Chronic Hypertension (DC), Chronic Respiratory Failure (DC), CHF Stoplight, COPD Stoplight, Chest Pain Stoplight, Opioid Safety, Post Angiogram Home Care Instructions Activity Restrictions/Additional Instructions: - Take aspirin, Plavix - Please do not stop taking these medications - If you develop bloody or black stools please admitted to the emergency room - Please stop taking meloxicam - If you have any recurrent chest pain please go to emergency room - Please stop smoking - Please follow-up with primary care provider - You have enlarged lymph nodes in her chest, please follow-up with your primary care provider for repeat CT chest - Discharge Attestations Time Spent in Discharge Care*: greater than 30 min Time Spent in Smoking Cessation: more than 10 minutes Discussed morbidity with dialysis with smoking, she is quit smoking about 10 days ago, discussed not to pick back up, risk of CAD, risk of lung disease Quality Metrics Clinical Quality Measures [ No reported AMI, CVA or VTE this stay] Coding Level of Care Code 25179 Total time (in minutes) for Discharge: 45 Diagnoses Acute hypoxic respiratory failure J96.01 Pneumonia J18.9 Acute systolic congestive heart failure I50.21 Heart failure chronicity: acute Heart failure type: systolic Acute systolic congestive heart failure I50.21 Heart failure chronicity: acute
[2024-11-25] MEDS: cyclobenzaprine 10 mg Tablet 5 MG PO (12:43)
--- NOTE | 2024-11-25 12:57 | P.PN_ITS ---
<Statement entered by Shannen Martines MD - 11/25/24 22:24> Patient was evaluated and cared for in conjunction with an advanced practice practitioner. I personally examined the patient and reviewed the chart and all pertinent data including imaging, telemetry, and laboratory results. I discussed the patient in detail with the advanced practice practitioner. Please see their note for complete H&P testing result and agreed upon plan of care for the patient. Subjective 2 Subjective: Patient doing well status post stent to the LAD x 2. Denies chest pain or shortness of breath. Overall looks euvolemic. She has been started on Entresto and is tolerating well. Vitals are stable. Cath site clean dry intact no signs of hematoma. Vitals/I&O/Wt Last Vital Signs Temp 97.8 F 11/25/24 11:38 Pulse 70 11/25/24 11:38 Resp 18 11/25/24 11:38 BP 105/62 11/25/24 11:38 Pulse Ox 96 11/25/24 08:00 O2 Del Method Nasal Cannula 11/25/24 08:00 O2 Flow Rate 2 11/25/24 07:49 11/24/24 11/25/24 11/25/24 22:59 06:59 14:59 Intake Total 360 / 720 1000 / 1720 300 / 300 Balance 360 / 720 1000 / 1720 300 / 300 Weight last 48 hrs Weight 212 lb 6 oz Weight 214 lb 4.8 oz Physical Exam 2 Narrative: General: No apparent distress, healthy appearing, well nourished HENMT: normoceophalic Muskuloskeletal: Full ROM Respiratory: Normal respiratory effort, clear to auscultation bilaterally throughout all lung bruno, no use of accessory muscles Cardio: No JVD, regular rate, regular rhythm, S1 S2 normal, no murmurs, peripheral pulses 2+ radial palpated bilaterally GI: Normal to inspection, nondistended Extremities: Full ROM, normal, normal capillary refill, no cyanosis or edema Neuro: Alert and oriented x4, no focal motor deficits Psych: Affect normal, denies suicidal ideation, mental status grossly normal Skin: Right radial cath site clean dry intact no signs of hematoma present Data 11/25/24 03:17 11/25/24 03:17 Micro: Microbiology 11/22/24 23:00 Gram Stain - Final Sputum - Expectorated Sputum Sputum Culture - Preliminary Coag positive Staphylococcus A&P Assessment and plan (1) Systolic CHF: (2) CHF (congestive heart failure): (3) HTN (hypertension): (4) Moderate tobacco use disorder: Plan Patient status post stent to the LAD. Will continue Coreg 12.5 twice daily continue Entresto twice daily, aspirin, Plavix, Lasix as needed. Patient is stable. May be discharged from cardiology standpoint with an appointment in 1 week with us. Continue heart failure medication. Low-sodium diet. Activity restrictions were given to patient. PDMP PDMP Reviewed: Not Reviewed Attestations 2 Medical Necessity Statement*: Deferred to primary Coding Level of Care Code Acute Code for g Fwd Diagnoses Acute systolic congestive heart failure I50.21 Heart failure chronicity: acute Acute systolic congestive heart failure I50.21 Heart failure chronicity: acute Heart failure type: systolic Primary hypertension I10 Hypertension type: primary hypertension Moderate tobacco use disorder F17.200
== END 2024-11-25 14:30 | disposition home or self-care (01) | DRG 981 ==
LOC: ER 17:45 → CSU 18:04
PROVIDERS: Internal Medicine Cardiovascular Disease; Nurse Practitioner Family; Admitting Provider Internal Medicine; Emergency Provider Emergency Medicine; PCP Family Medicine; Visit Provider Family Medicine
PROC: 02703EZ Dilation of Coronary Artery, One Artery with Two Intraluminal Devices, Percutaneous Approach (ICD-10-PCS; principal; 2024-11-24 08:30)
PROC: 02703EZ Dilation of Coronary Artery, One Artery with Two Intraluminal Devices, Percutaneous Approach (ICD-10-PCS; 2024-11-24 08:30)
DX: J96.01 Acute respiratory failure with hypoxia (principal); I21.4 Non-ST elevation (NSTEMI) myocardial infarction; J18.9 Pneumonia, unspecified organism; I50.21 Acute systolic (congestive) heart failure; I11.0 Hypertensive heart disease with heart failure; I27.20 Pulmonary hypertension, unspecified; I08.3 Combined rheumatic disorders of mitral, aortic and tricuspid valves; I37.1 Nonrheumatic pulmonary valve insufficiency; E66.9 Obesity, unspecified; Z68.34 Body mass index [BMI] 34.0-34.9, adult; M19.011 Primary osteoarthritis, right shoulder; M77.8 Other enthesopathies, not elsewhere classified; F17.210 Nicotine dependence, cigarettes, uncomplicated; F32.9 Major depressive disorder, single episode, unspecified; F41.0 Panic disorder [episodic paroxysmal anxiety]; Z88.8 Allergy status to other drugs, medicaments and biological substances; Z79.82 Long term (current) use of aspirin; Z79.899 Other long term (current) drug therapy
CPT/HCPCS: 36415; 71045; 71275; 72040; 73030; 80048; 80053; 80061; 80074; 81001; 82728; 83690; 83735; 83880; 84145; 84443; 84484; 85025; 85347; 85378; 86140; 87040; 87070; 87186; 87205; 87637; 93005; 93306; 93454; 93571; 94640; 94664; 94760; 96372; 96374; 96376; 99152; 99153; 99285; A9270; C1725; C1769; C1874; C1887; C1894; C9600; J0456; J0696; J1644; J1650; J1938; J2250; J2270; J2470; J3010; J3490; J7030; J7050; J7611; J7613; J9999; Q0144; Q0163; Q9967

== ENCOUNTER → 2024-12-07 13:22 | Outpatient (BNVA) | payer MEDICARE, SELFPAY | PROVIDERS: PCP Family Medicine; Visit Provider Nurse Practitioner Family | DX: I11.0 Hypertensive heart disease with heart failure (principal); I50.20 Unspecified systolic (congestive) heart failure; Z09 Encounter for follow-up examination after completed treatment for conditions other than malignant neoplasm; I25.810 Atherosclerosis of coronary artery bypass graft(s) without angina pectoris; Z79.02 Long term (current) use of antithrombotics/antiplatelets; Z79.82 Long term (current) use of aspirin; Z95.5 Presence of coronary angioplasty implant and graft; Z87.891 Personal history of nicotine dependence; I25.2 Old myocardial infarction | CPT/HCPCS: 99214 ==

== ENCOUNTER → 2024-12-20 12:43 | Outpatient (BNVA) | payer MEDICARE, SELFPAY | PROVIDERS: PCP Family Medicine; Visit Provider Orthopaedic Surgery | DX: M25.511 Pain in right shoulder (principal); G89.29 Other chronic pain | CPT/HCPCS: 99204 ==

== ENCOUNTER 2025-01-09 13:15 | Emergency (ER) | payer MEDICARE, SELFPAY ==
[2025-01-09 13:19] VITALS: BP 170/91; PULSE 96; RESP 30; TEMP 36.5; O2SAT 93; BMI 36.3
--- NOTE | 2025-01-09 13:20 | XRR_ITS ---
PROCEDURE INFORMATION: Exam: XR Chest Exam date and time: 01/09/2025 1:32 PM Age: 64 years old Clinical indication: Shortness of breath; Prior surgery; Surgery date: 6+ months; Surgery type: C spine; Additional info: SOB TECHNIQUE: Imaging protocol: Radiologic exam of the chest. Views: 1 view. COMPARISON: CT angio chest PE protcl [id number] 11/21/2024 4:45 PM FINDINGS: Lungs: Slight left midlung infiltrate. Pleural spaces: Unremarkable. No pleural effusion. No pneumothorax. Heart/Mediastinum: See Vasculature finding. Vasculature: Mild cardiomegaly and uncoiling of the thoracic aorta. Bones/joints: Anterior cervical fusion. XR/XR chest 1V portable [id number] IMPRESSION: Slight left-sided infiltrate.
--- NOTE | 2025-01-09 13:26 | ECG_ITS ---
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 Measurements Intervals [place] Rate: 92 P: 68 WV: 147 QRS: 37 QRSD: 90 T: 25 QT: 354 QTc: 438 Interpretive Statements SINUS RHYTHM NONSPECIFIC T-WAVE ABNORMALITY Compared to ECG 11/23/2024 21:52:21 No significant changes Electronically Signed On 01-09-2025 17:06:31 CDT by Makenna Morales M.D. [email or web address]
[2025-01-09 14:21] LABS: Hematocrit 36.7 % (36-47); Hemoglobin 10.90 g/dL (11.27-16.99); Mean Corpuscular HGB Conc 29.7 g/dL (30-55); Mean Corpuscular Hemoglobin 26.3 pg (27-33); Mean Corpuscular Volume 88.4 fl (85-98); Nucleated Red Blood Cells % 0.3 %; Platelet Count 277 10^3/cmm (157-399); Red Blood Count 4.15 10^6/uL (3.85-5.65); White Blood Count 6.43 10^3/uL (3.29-11.43)
--- NOTE | 2025-01-09 14:27 | ED_ITS ---
HPI - SOB/Dyspnea 2 General: Chief Complaint: Shortness of Breath/Dyspnea Stated Complaint: trouble breathing, coughing, confusion Time Seen by Provider: 01/09/25 14:22 Source: patient Mode of arrival: ambulatory Limitations: no limitations History of Present Illness: HPI Narrative: 64-year-old female has a history of COPD along with congestive heart failure states that she does wear oxygen at times at home. States she has been having some increased shortness of breath wheezing over the last few weeks. States she has had some chest tightness as well as she states that tightness is currently a 5 out of 10 she denies any vomiting or diarrhea. Denies any fever she is able speak in full senses here. States she has had some slight hallucinations at home but none currently answering all my questions appropriately Associated symptoms: Deny abdominal pain, chest pain, fever(s), nausea or vomiting Related Data Home Medications ?Medication ?Instructions ?Recorded ?Confirmed loratadine 10 mg tablet (Claritin) 10 mg PO DAILY 08/2001/09/25 cyclobenzaprine 10 mg tablet 10 mg PO TID PRN muscle s pasms 01/09/25 01/09/25 nitroglycerin 0.4 mg sublingual See Rx Instructions .R oute .COMPLEX 01/09/25 01/09/25 tablet potassium chloride 10 mEq 10 meq PO DAILY PRN lasix us e 01/09/25 01/09/25 tablet,extended release Previous Rx's ?Medication ?Instructions ?Recorded acetaminophen 500 mg tablet 1,000 mg (2 x 500 mg) PO Q 8H PRN 01/04/23 (Tylenol Extra Strength) pain #30 tabs sertraline 50 mg tablet 50 mg PO DAILY #90 tabs 09/13 albuterol sulfate 90 mcg/actuation 2 puff inhalation Q 6H PRN 10/11/24 aerosol inhaler shortness of breath or wheez ing #8.5 grams aspirin 81 mg tablet,delayed 81 mg PO DAILY 30 days #3 0 tabs 11/25/24 release clopidogrel 75 mg tablet 75 mg PO DAILY #90 tabs 11/20 02/13 sacubitril 49 mg-valsartan 51 mg 1 tab PO BID #180 tab s 12/07/24 tablet atorvastatin 40 mg tablet 40 mg PO BEDTIME #90 tabs carvedilol 12.5 mg tablet 12.5 mg PO BID #180 tabs doxycycline hyclate 100 mg tablet 100 mg PO BID 7 days #14 tabs 01/09/25 Allergies Allergy/AdvReac Type Severity Reaction Status Date / Time lisinopril Allergy ADR-Cough Verified 01/09/25 13:30 Review of Systems 2 Const: Denies: fever(s), chills, body aches or change in appetite ENMT: Denies: throat pain or dental pain Card: Denies: chest pain Resp: Reports: dyspnea GI: Denies: abdominal pain, nausea, vomiting or diarrhea Musc: Denies: neck pain or back pain Skin/Breast: Denies: rash Neuro: Denies: headache(s) PFSH ED 2 PFSH: Medical History CAD (coronary artery disease) HFrEF (heart failure with reduced ejection fraction) Right hand pain Trigger finger Moderate tobacco use disorder Panic anxiety syndrome Anxiety Moderate major depression Cannabis use disorder Obesity (BMI 35.0-39.9 without comorbidity) URI (upper respiratory infection) Sinusitis chronic, frontal Allergic rhinitis due to allergen Surgical History Hx of neck surgery two surgeries in mid Social History Smoking and tobacco/nicotine status: former use of tobacco/nicotine Alcohol intake: never Substance/Drug Use: current Substance/Drug use frequency: daily Physical Exam 2 Const: COMMON NORMALS: patient oriented x3 HENMT: COMMON NORMALS: normocephalic and atraumatic HEAD & SCALP: n ormocephalic and atraumatic Eye: COMMON NORMALS: Equal, round and reactive pupils present and EOMs intact bilaterally PUPIL: Yes Equal, round and reactive pupils present Neck/C-Spine: COMMON NORMALS: full ROM and supple Chest: COMMONS NORMALS: normal inspection of the chest and normal palpation of entire chest wall Resp: COMMON NORMALS: normal respiratory effort, No retractions, No use of accessory muscles and clear to auscultation bilaterally AUSCULTATION: clear to auscultation bilaterally Cardio: COMMON NORMALS: regular rate, regular rhythm and No murmurs present (Cardio) RATE: regular rate RHYTHM: regular rhythm GI: COMMON NORMALS: Normal to inspection, nondistended, normoactive bowel sounds present, Soft to palpation, non-tender and no masses PALPATION: Yes Soft to palpation Extremity: COMMON NORMALS: normal to inspection and full ROM Neuro: COMMON NORMALS: patient oriented x3, moves all extremities and no focal motor deficits Psych: COMMON NORMALS: mental status grossly normal, Normal thought process present and cooperative THOUGHT PROCESS: Normal thought process present Skin: COMMON NORMALS: no rashes or lesions noted and no wounds GENERAL SKIN EXAM: no rashes or lesions noted Course 2 Vital Signs: Vital signs: Vital Signs Temperature 97.7 F 01/09/25 13:19 Pulse Rate 94 01/09/25 15:26 Respiratory Rate 18 01/09/25 15:26 Blood Pressure 179/101 01/09/25 15:26 Pulse Oximetry 98 01/09/25 15:26 Oxygen Delivery Me thod Nasal Cannula 01/09/25 14:41 Oxygen Flow Rate 2 01/09/25 14:41 MDM - SOB/Dyspnea Medical Decision Making Patient presents here with shortness of breath x-ray does show a possible pneumonia she feels much improved here she is in no distress no signs of PE she stable for discharge we will prescribe her antibiotics she is return if worsening Medical Records I reviewed the patient's medical records. Lab Data I reviewed the patient's lab results. 01/09/25 14:01 01/09/25 14:01 Labs/Radiology: Radiology Impressions Chest X-Ray 01/09/25 13:20 IMPRESSION: Slight left-sided infiltrate. Laboratory Results WBC 6.43 10^3/uL (3.29-11.43) 01/09/25 14:01 RBC 4.15 10^6/uL (3.85-5.65) 01/09/25 14:01 Hgb 10.90 g/dL (11.27-16.99) L 01/09/25 14:01 Hct 36.7 % (36-47) 01/09/25 14:01 MCV 88.4 fl (85-98) 01/09/25 14:01 MCH 26.3 pg (27-33) L 01/09/25 14:01 MCHC 29.7 g/dL (30-55) L 01/09/25 14:01 RDW 18.6 % (12.1-15.1) H 01/09/25 14:01 Plt Count 277 10^3/cmm (157-399) 01/09/25 14:01 MPV 9.5 fL (7.4-10.4) 01/09/25 14:01 Neut % (Auto) 70.5 % 01/09/25 14:01 Lymph % (Auto) 19.0 % 01/09/25 14:01 [place] % (Auto) 7.5 % 01/09/25 14:01 Eos % (Auto) 1.9 % 01/09/25 14:01 Baso % (Auto) 0.3 % 01/09/25 14:01 Neut # (Auto) 4.54 10^3/uL (1.8-7.7) 01/09/25 14:01 Lymph # (Auto) 1.2 10^3/uL (0.8-4.8) 01/09/25 14:01 [place] # (Auto) 0.5 10^3/uL (0.2-0.9) 01/09/25 14:01 Eos # (Auto) 0.1 10^3/uL (0.0-0.8) 01/09/25 14:01 Baso # (Auto) 0.0 10^3/uL (0.0-0.1) 01/09/25 14:01 Nucleated RBC % (auto) 0.3 % 01/09/25 14:01 Nucleated RBCs # 0.0 /100WBC 01/09/25 14:01 PT 16.10 SECONDS (12.1-14.9) H 01/09/25 14:01 INR 1.21 (0.8-1.2) H 01/09/25 14:01 Specimen Type Arterial 01/09/25 14:53 Sample Site Radial, left 01/09/25 14:53 ABG pH 7.40 (7.35-7.45) 01/09/25 14:53 ABG pCO2 43.9 mmHg (35-45) 01/09/25 14:53 ABG pO2 82.7 mmHg (80.0-100.0) 01/09/25 14:53 ABG PO2/FiO2 Ratio 295 01/09/25 14:53 ABG HCO3 26.9 mmol/L (22-26) H 01/09/25 14:53 ABG Base Excess 1.7 mmol/L (-2.0-2.0) 01/09/25 14:53 Shaq Test Pos 01/09/25 14:53 Hematocrit 39.3 % (37-47) 01/09/25 14:53 Hgb O2 Saturation 94.6 % (95-100) L 01/09/25 14:53 Carboxyhemoglobin 1.7 %THgb (0.4-20.1) 01/09/25 14:53 Methemoglobin < 0.0 % (0.4-1.5) L 01/09/25 14:53 Total Hemoglobin 12.8 g/dL (12-16) 01/09/25 14:53 O2 Delivery Device Nc 01/09/25 14:53 O2 Liters/Min 2.0 % 01/09/25 14:53 FiO2 28.0 % 01/09/25 14:53 Manager Outpatient ID glc 01/09/25 14:53 Sodium 137 mmol/L (136-145) 01/09/25 14:01 Potassium 3.8 mmol/L (3.5-5.1) 01/09/25 14:01 Chloride 99 mmol/L (98-107) 01/09/25 14:01 Carbon Dioxide 27 mmol/L (22-29) 01/09/25 14:01 Anion Gap 14.8 (5-19) 01/09/25 14:01 BUN 14 mg/dL (8-23) 01/09/25 14:01 Creatinine 0.5 mg/dL (0.5-0.9) 01/09/25 14:01 GFR Calculation 149.8 mL/min (90-130) H 01/09/25 14:01 Glucose 103 mg/dL (65-115) 01/09/25 14:01 Calculated Osmolality 285 mOsm/kg (285-295) 01/09/25 14:01 Calcium 8.5 mg/dL (8.5-10.5) 01/09/25 14:01 Total Bilirubin 1.4 mg/dL (0.15-1.2) H 01/09/25 14:01 AST 70 U/L (0-32) H 01/09/25 14:01 ALT 61 U/L (0-33) H 01/09/25 14:01 Alkaline Phosphatase 269 U/L (35-105) H 01/09/25 14:01 Troponin T Baseline 12 ng/L (0-10) H 01/09/25 14:01 NT-Pro-B Natriuret Pep 2407 pg/mL (0-125) H 01/09/25 14:01 Total Protein 7.3 g/dL (6.6-8.7) 01/09/25 14:01 Albumin 3.6 g/dL (3.5-5.2) 01/09/25 14:01 Globulin 3.7 g/dL (1.3-4.6) 01/09/25 14:01 Urine Color Dark yellow (Yellow) A 01/09/25 15:21 Urine Appearance Cloudy (CLEAR) A 01/09/25 15:21 Urine pH 5.5 (5-7) 01/09/25 15:21 Ur Specific [place] 1.024 (1.005-1.030) 01/09/25 15:21 Urine Protein 1+ (Negative) A 01/09/25 15:21 Urine Glucose (UA) Negative (Normal) 01/09/25 15:21 Urine Ketones Negative (Negative) 01/09/25 15:21 Urine Blood Negative (Negative) 01/09/25 15:21 Urine Nitrate Negative (Negative) 01/09/25 15:21 Urine Bilirubin Negative (Negative) 01/09/25 15:21 Urine Urobilinogen 1.0 mg/dL (Negative) 01/09/25 15:21 Ur Leukocyte Esterase Negative (Negative) 01/09/25 15:21 Urine RBC 0-2 /hpf (0-2) 01/09/25 15:21 Urine WBC 0-5 /hpf (0-5) 01/09/25 15:21 Ur Squamous Epith Cells 0-5 /hpf (0-5) 01/09/25 15:21 Urine Bacteria None seen /hpf (NONE) 01/09/25 15:21 Hyaline Casts 4.11 /lpf 01/09/25 15:21 All radiology interpretation(s) finalized by discharge Discharge Plan Discharge Patient Disposition: Home Clinical Impression: Community acquired pneumonia Qualifiers: Laterality: right Lung location: lower lobe of lung Qualified Code(s): J18.9 - Pneumonia, unspecified organism Condition: Stable Prescriptions: New doxycycline hyclate 100 mg tablet 100 mg PO BID 7 Days Qty: 14 0RF No Action albuterol sulfate 90 mcg/actuation HFA aerosol inhaler 2 puff inhalation Q6H PRN (Reason: shortness of breath or wheezing) Qty: 8.5 0RF sacubitril-valsartan 49-51 mg tablet 1 tab PO BID Qty: 180 3RF clopidogrel 75 mg tablet 75 mg PO DAILY Qty: 90 3RF acetaminophen [Tylenol Extra Strength] 500 mg tablet 1,000 mg PO Q8H PRN (Reason: pain) Qty: 30 0RF loratadine [Claritin] 10 mg tablet 10 mg PO DAILY sertraline 50 mg tablet 50 mg PO DAILY Qty: 90 1RF carvedilol 12.5 mg tablet 12.5 mg PO BID Qty: 180 3RF Rx Instructions: must administer with a meal/food atorvastatin 40 mg tablet 40 mg PO BEDTIME Qty: 90 1RF potassium chloride 10 mEq tablet extended release 10 meq PO DAILY PRN (Reason: lasix use) nitroglycerin 0.4 mg tablet, sublingual See Rx Instructions .ROUTE .COMPLEX Rx Instructions: DISSOLVE 1 TABLET UNDER THE TONGUE EVERY 5 MINUTES NEEDED FOR CHEST PAIN. DO NOT EXCEED A TOTAL OF 3 DOSES IN 15 MINUTES. cyclobenzaprine 10 mg tablet 10 mg PO TID PRN (Reason: muscle spasms) aspirin 81 mg tablet,delayed release (DR/EC) 81 mg PO DAILY 30 Days Qty: 30 0RF Discharge Orders: Discharge ED (Routine); Ordered 01/09/25 Ordered By: Dave Wilson Referrals: Jose Pelayo MD [Primary Care Provider, Family Practice] - 4-7 days Discharge Diet: Advance as tolerated Discharge Activity: Resume usual activity Patient Instructions: Pneumonia (ED) Print Language: Cameroonian Coding Level of Care Code ED Machine Setter Automatic for Pedrito Spence
--- NOTE | 2025-01-09 14:27 | ECG_ITS ---
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 Measurements Intervals [place] Rate: 89 P: 68 CA: 154 QRS: 15 QRSD: 81 T: 9 QT: 367 QTc: 448 Interpretive Statements SINUS RHYTHM POSSIBLE ANTERIOR MYOCARDIAL INFARCTION , PROBABLY OLD [30 ms Q WAVE IN V3/V4, OR R < 0.2 mV IN V4] Compared to ECG 01/09/2025 13:26:03 Myocardial infarct finding now present T-wave abnormality no longer present Electronically Signed On 01-09-2025 16:54:02 CDT by Makenna Morales M.D. [email or web address]
[2025-01-09 14:41] VITALS: PULSE 82; RESP 26; O2SAT 92
[2025-01-09 14:43] LABS: Alanine Aminotransferase 61 U/L (0-33); Albumin Level 3.6 g/dL (3.5-5.2); Alkaline Phosphatase 269 U/L (35-105); Anion Gap 14.8 (5-19); Aspartate Amino Transferase 70 U/L (0-32); Blood Urea Nitrogen 14 mg/dL (8-23); Calcium 8.5 mg/dL (8.5-10.5); Carbon Dioxide 27 mmol/L (22-29); Chloride 99 mmol/L (98-107); Creatinine Clr Calc Pharmacy 84.5608; Globulin 3.7 g/dL (1.3-4.6); Glucose 103 mg/dL (65-115); NT Pro B Type Natriuretic Pept 2407 pg/mL (0-125); Osmolality Calculated 285 mOsm/kg (285-295); Potassium 3.8 mmol/L (3.5-5.1); Sodium 137 mmol/L (136-145); Total Protein 7.3 g/dL (6.6-8.7)
[2025-01-09 14:44] LABS: INR 1.21 (0.8-1.2); Prothrombin Time 16.10 SECONDS (12.1-14.9)
[2025-01-09 14:47] VITALS: PULSE 89
[2025-01-09 14:59] LABS: Troponin(5th) Baseline 12 ng/L (0-10)
[2025-01-09 15:04] LABS: ABG PCO2 43.9 mmHg (35-45); ABG PH Result 7.40 (7.35-7.45); Arterial Blood Gas Hematocrit 39.3 % (37-47); Blood Gas Allen Test Pos; Blood Gas LPM 2.0 %; Blood Gas Operator Identificat glc; Blood Gas Sample Site Radial, left; Blood Gas Sample Type Arterial; Carboxyhemoglobin 1.7 %THgb (0.4-20.1); HCO3 ABG 26.9 mmol/L (22-26); Methemoglobin < 0.0 % (0.4-1.5); PO2 ABG 82.7 mmHg (80.0-100.0); PO2 FiO2 Ratio Arterial Blood 295
[2025-01-09] MEDS: hyDRALAzine 20 mg/mL INJ 1 mL 10 MG IVP (15:08)
[2025-01-09 15:26] VITALS: BP 179/101; PULSE 94; RESP 18; O2SAT 98
[2025-01-09 15:31] LABS: Glucose Urine UA Negative (Normal); Nitrate Urine Negative (Negative); Specific Gravity, Urine 1.024 (1.005-1.030)
[2025-01-09 15:36] LABS: Add Urine Microscopic? YES
[2025-01-09 15:55] VITALS: BP 179/112; PULSE 91; RESP 20; O2SAT 98
== END 2025-01-09 15:57 | disposition home or self-care (01) ==
PROVIDERS: Emergency Provider Emergency Medicine; PCP Family Medicine
DX: J18.9 Pneumonia, unspecified organism (principal); Z87.891 Personal history of nicotine dependence
CPT/HCPCS: 36415; 36600; 71045; 80053; 81001; 82805; 83880; 84484; 85025; 85610; 93005; 94640; 96374; 96375; 99285; J0360; J1100; J9999

== ENCOUNTER 2025-01-20 13:34 | Emergency (ER) | payer MEDICARE, SELFPAY ==
[2025-01-20 13:47] VITALS: BP 172/105; PULSE 101; RESP 16; TEMP 37; O2SAT 91
--- NOTE | 2025-01-20 14:21 | ED_ITS ---
HPI - Skin/Abscess/Foreign Bdy General: Chief complaint: Skin/Abscess/Foreign Body Stated complaint: rash Time Seen by Provider: 01/20/25 13:43 History of Present Illness: Patient is a 64-year-old female who presents to the ED with multiple complaints. Her primary concern is a pruritic rash that has been present for 2-3 days. The rash is described as extremely itchy, causing the patient significant discomfort and disturbing her sleep. She reports that the rash started on her back and has since spread to multiple areas including her lower extremities. The lesions are occasionally painful to touch. She denies any known exposures, stating she has only been at home and work recently. She has tried taking Benadryl without significant relief. Additionally, the patient reports dyspnea with exertion, stating she sometimes has to stop to catch her breath. She is on home oxygen therapy. She also complains of abdominal discomfort, describing her abdomen as feeling 'heavy' and difficult to 'hold up.' She is currently taking Lasix 10mg daily with potassium supplementation for edema. Related Data Home Medications ?Medication ?Instructions ?Recorded ?Confirmed loratadine 10 mg tablet (Claritin) 10 mg PO DAILY 08/2001/09/25 cyclobenzaprine 10 mg tablet 10 mg PO TID PRN muscle s pasms 01/09/25 01/09/25 nitroglycerin 0.4 mg sublingual See Rx Instructions .R oute .COMPLEX 01/09/25 01/09/25 tablet potassium chloride 10 mEq 10 meq PO DAILY PRN lasix us e 01/09/25 01/09/25 tablet,extended release Previous Rx's ?Medication ?Instructions ?Recorded acetaminophen 500 mg tablet 1,000 mg (2 x 500 mg) PO Q 8H PRN 01/04/23 (Tylenol Extra Strength) pain #30 tabs sertraline 50 mg tablet 50 mg PO DAILY #90 tabs 09/13 albuterol sulfate 90 mcg/actuation 2 puff inhalation Q 6H PRN 10/11/24 aerosol inhaler shortness of breath or wheez ing #8.5 grams aspirin 81 mg tablet,delayed 81 mg PO DAILY 30 days #3 0 tabs 11/25/24 release clopidogrel 75 mg tablet 75 mg PO DAILY #90 tabs 11/20 02/13 sacubitril 49 mg-valsartan 51 mg 1 tab PO BID #180 tab s 12/07/24 tablet atorvastatin 40 mg tablet 40 mg PO BEDTIME #90 tabs carvedilol 12.5 mg tablet 12.5 mg PO BID #180 tabs furosemide 20 mg tablet (Lasix) 20 mg PO DAILY #5 tabs 01/20/25 triamcinolone acetonide 0.1 % 1 applic topical BID #30 grams 01/20/25 topical cream Allergies Allergy/AdvReac Type Severity Reaction Status Date / Time lisinopril Allergy ADR-Cough Verified 01/09/25 13:30 [facility] ED PFS: Medical History (Updated 01/20/25 @ 14:28 by Tomer Mcrae MD) CAD (coronary artery disease) HFrEF (heart failure with reduced ejection fraction) Right hand pain Trigger finger Moderate tobacco use disorder Panic anxiety syndrome Anxiety Moderate major depression Cannabis use disorder Obesity (BMI 35.0-39.9 without comorbidity) URI (upper respiratory infection) Sinusitis chronic, frontal Allergic rhinitis due to allergen Surgical History Hx of neck surgery two surgeries in mid Social History Smoking and tobacco/nicotine status: former use of tobacco/nicotine Alcohol intake: never Substance/Drug Use: current Substance/Drug use frequency: daily Physical Exam Narrative: EXAM NARRATIVE: General: Alert, obese female in no acute distress. HEENT: Head normocephalic and atraumatic. Mucous membranes moist. Neck: Supple. Respiratory: Clear breath sounds bilaterally. No increased work of breathing, no wheezing. Cardiac: Regular rate and rhythm, 2+ pulses in all extremities. Abdomen: Obese, soft, and nontender. Evidence of mild panniculitis to the anterior abdominal fat wall with possible anasarca-like edema to the pannus. Skin: Multiple somewhat excoriated, scabbed over 1-2 millimeter lesions scattered on the left side of the back with additional lesions on the right side of the back. Similar macular papular lesions noted on the lower extremities and shins. No lesions on palms or soles. No mucosal membrane lesions. Lesions do not follow any dermatomal pattern. Neuro: Cranial nerves grossly intact, no focal motor or sensory deficits noted. Course Vital Signs: Vital signs: Vital Signs Temperature 98.6 F 01/20/25 13:47 Pulse Rate 101 H 01/20/25 13:47 Respiratory Rate 16 01/20/25 13:47 Blood Pressure 172/105 01/20/25 13:47 Pulse Oximetry 91 01/20/25 13:47 Oxygen Delivery Me thod Room Air 01/20/25 13:47 MDM - Skin/Abscess/Foreign Bdy Medicial Decision Making ROS: Constitutional: Reports disturbed sleep due to itching. Respiratory: Positive for dyspnea on exertion, requiring home oxygen therapy. Integumentary: Positive for pruritic rash on back and lower extremities for 2-3 days, with some lesions painful to touch. Gastrointestinal: Reports abdominal heaviness and discomfort. All other systems reviewed and negative or unchanged from baseline. MEDICATIONS AND ALLERGIES: Medications: - Lasix 10mg daily - Potassium supplement - Home oxygen therapy - Reports having 'two stents' (likely cardiac) PAST HISTORICAL DATA: PMH: History of liver infection 2-3 years ago, cardiac stents, chronic edema requiring diuretic therapy, chronic respiratory condition requiring home oxygen PSH: Possible gallbladder surgery (patient mentioned gallbladder issues) Social: Works outside the home, limited social exposures (reports only being at home and work) INITIAL IMPRESSION AND PLAN: Given the history and presentation, the primary working diagnosis is dermatitis of unclear etiology with panniculitis. Additional considerations include contact dermatitis, drug reaction, urticaria, and early cellulitis. The patient also has volume overload with possible exacerbation of chronic respiratory condition. Based on this initial impression I will order: 1. Prescription for triamcinolone cream for the dermatitis-like lesions 2. Increase Lasix from 10mg to 20mg daily for 5 days to address fluid retention 3. Recommend follow-up with PCP within one week for reassessment CONSIDERED BUT NOT PERFORMED: Laboratory studies (CBC, CMP) considered but not done due to presentation consistent with dermatitis and panniculitis without signs of systemic infection or organ dysfunction. Chest X-ray considered but not done as patient's respiratory symptoms appear chronic and unchanged from baseline without acute respiratory distress. Skin biopsy considered but not done as presentation is consistent with dermatitis that can be managed with topical steroids and outpatient follow-up. FINAL IMPRESSION: Based on all the above, my clinical impression is most compatible with dermatitis of unclear etiology with abdominal panniculitis and chronic fluid retention. The clinical picture is not currently suggestive of shingles, cellulitis, or acute liver failure. Although other conditions were also considered, they were deemed unlikely based on the clinical information available. CLINICAL DISPOSITION: The patient's current condition is stable in my estimation and the most appropriate and indicated disposition at this time is discharge home with medications and outpatient follow-up. The patient is safe for discharge as she has no signs of systemic infection, her vital signs are stable, and her skin condition can be managed with topical steroids. Her chronic fluid retention can be addressed with a temporary increase in her diuretic dose. She has been instructed to follow up with her PCP within one week, or return to the ED for worsening symptoms. The patient demonstrates understanding of the discharge instructions and has adequate support at home. RISK STRATIFICATION AND CLINICAL DECISION RULES APPLIED: No formal clinical decision rules were applied in this case as the presentation did not warrant specific risk stratification tools. CASE SUMMARY: 64-year-old female with history of cardiac stents, chronic edema, and home oxygen dependency presented with a 2-3 day history of pruritic rash on back and lower extremities, along with complaints of abdominal heaviness and dyspnea on exertion. Physical examination revealed scattered excoriated lesions that did not follow a dermatomal pattern, along with findings consistent with panniculitis of the abdominal wall. The patient was diagnosed with dermatitis of unclear etiology with panniculitis and fluid retention. Treatment plan included prescription for triamcinolone cream for the dermatitis and increasing Lasix from 10mg to 20mg daily for 5 days. Patient was counseled on the importance of avoiding scratching to prevent secondary infection. She was advised to follow up with her primary care provider within one week, or return to the ED for worsening symptoms. The patient was also encouraged to consider changing her primary care provider if she feels her current one is not addressing her concerns adequately. No radiology studies performed this visit Discharge Plan Discharge Patient Disposition: Home Clinical Impression: Rash, Panniculitis Condition: Stable Prescriptions: New triamcinolone acetonide 0.1 % cream 1 applic topical BID Qty: 30 0RF furosemide [Lasix] 20 mg tablet 20 mg PO DAILY Qty: 5 0RF No Action albuterol sulfate 90 mcg/actuation HFA aerosol inhaler 2 puff inhalation Q6H PRN (Reason: shortness of breath or wheezing) Qty: 8.5 0RF sacubitril-valsartan 49-51 mg tablet 1 tab PO BID Qty: 180 3RF clopidogrel 75 mg tablet 75 mg PO DAILY Qty: 90 3RF acetaminophen [Tylenol Extra Strength] 500 mg tablet 1,000 mg PO Q8H PRN (Reason: pain) Qty: 30 0RF loratadine [Claritin] 10 mg tablet 10 mg PO DAILY sertraline 50 mg tablet 50 mg PO DAILY Qty: 90 1RF carvedilol 12.5 mg tablet 12.5 mg PO BID Qty: 180 3RF Rx Instructions: must administer with a meal/food atorvastatin 40 mg tablet 40 mg PO BEDTIME Qty: 90 1RF potassium chloride 10 mEq tablet extended release 10 meq PO DAILY PRN (Reason: lasix use) nitroglycerin 0.4 mg tablet, sublingual See Rx Instructions .ROUTE .COMPLEX Rx Instructions: DISSOLVE 1 TABLET UNDER THE TONGUE EVERY 5 MINUTES NEEDED FOR CHEST PAIN. DO NOT EXCEED A TOTAL OF 3 DOSES IN 15 MINUTES. cyclobenzaprine 10 mg tablet 10 mg PO TID PRN (Reason: muscle spasms) aspirin 81 mg tablet,delayed release (DR/EC) 81 mg PO DAILY 30 Days Qty: 30 0RF Discharge Orders: Discharge ED (Routine); Ordered 01/20/25 Ordered By: Tomer Mcrae Referrals: Jose Pelayo MD [Primary Care Provider, [facility]] Discharge Activity: Increase activity as tolerated Patient Instructions: Dermatitis (ED), Opioid Safety, Pain Management, Patient Portal & Billy Instructions Activity Restrictions/Additional Instructions: Medications: 1. Triamcinolone cream - Apply a thin layer to affected areas twice daily for 7- 10 days 2. Increase your Lasix (furosemide) to 20mg once daily in the morning for the next 5 days, then return to your usual 10mg dose 3. Continue your potassium supplement as prescribed 4. Continue all other home medications as previously prescribed Home Care Instructions: 1. Avoid scratching the rash to prevent infection 2. Consider using mild, fragrance-free soaps and detergents 3. Wear loose-fitting clothing to reduce irritation 4. Take Benadryl (diphenhydramine) as needed for itching, especially at bedtime 5. Elevate your legs when sitting or lying down to help reduce swelling Follow-up: Schedule an appointment with your primary care provider within one week for reassessment Return to the Emergency Department if you experience: 1. Worsening of the rash or spreading to new areas 2. Signs of infection (increased redness, warmth, swelling, pus, or fever) 3. Increased difficulty breathing or shortness of breath 4. Significant increase in swelling or weight gain 5. Any new or concerning symptoms Print Language: Tajik Coding Level of Care Code ED Waste Chopper for Pedrito Spence
[2025-01-20 14:49] VITALS: BP 164/115; PULSE 91; O2SAT 99
== END 2025-01-20 14:49 | disposition home or self-care (01) ==
PROVIDERS: Emergency Provider Student in an Organized Health Care Education/Training Program; PCP Family Medicine
DX: R21 Rash and other nonspecific skin eruption (principal); M54.00 Panniculitis affecting regions of neck and back, site unspecified; Z79.82 Long term (current) use of aspirin; Z87.891 Personal history of nicotine dependence; I25.10 Atherosclerotic heart disease of native coronary artery without angina pectoris; I50.20 Unspecified systolic (congestive) heart failure
CPT/HCPCS: 99283

== ENCOUNTER 2025-02-03 18:57 | Emergency (ER) | payer MEDICARE, SELFPAY ==
--- NOTE | 2025-02-03 19:13 | W.ED.PSYCHS ---
Documented by User: Dave Wilson MD 02/03/25 22:11 HPI - Psych General: Chief Complaint: Psychiatric Symptoms Stated Complaint: 96 HOUR HOLD Time Seen by Provider: 02/03/25 19:00 Source: patient and police Mode of arrival: ambulatory Limitations: no limitations History of Present Illness: 64-year-old female who is brought in by police for psychosis along with rob. She had been in [facility] and they state that she has been seeing things she is thinking that people are coming into her [facility] cell at night and taking her close patient here does appear manic and has flight of ideas she has been released from custody. Denies any SI or HI Associated symptoms: Reports delusions Related Data Home Medications ?Medication ?Instructions ?Recorded ?Confirmed loratadine 10 mg tablet (Claritin) 10 mg PO DAILY 08/30/24 01/09/25 cyclobenzaprine 10 mg tablet 10 mg PO TID PRN muscle spasms 01/09/25 01/09/25 nitroglycerin 0.4 mg sublingual See Rx Instructions .Route .COMPLEX 01/09/25 01/09/25 tablet potassium chloride 10 mEq 10 meq PO DAILY PRN lasix use 01/09/25 01/09/25 tablet,extended release Previous Rx's ?Medication ?Instructions ?Recorded acetaminophen 500 mg tablet 1,000 mg (2 x 500 mg) PO Q8H PRN 01/04/23 (Tylenol Extra Strength) pain #30 tabs sertraline 50 mg tablet 50 mg PO DAILY #90 tabs 09/22/24 albuterol sulfate 90 mcg/actuation 2 puff inhalation Q6H PRN 10/11/24 aerosol inhaler shortness of breath or wheezing #8.5 grams aspirin 81 mg tablet,delayed 81 mg PO DAILY 30 days #30 tabs 11/25/24 release clopidogrel 75 mg tablet 75 mg PO DAILY #90 tabs 12/07/24 sacubitril 49 mg-valsartan 51 mg 1 tab PO BID #180 tabs 12/07/24 tablet atorvastatin 40 mg tablet 40 mg PO BEDTIME #90 tabs 01/02/25 carvedilol 12.5 mg tablet 12.5 mg PO BID #180 tabs 01/02/25 furosemide 20 mg tablet (Lasix) 20 mg PO DAILY #5 tabs 01/20/25 triamcinolone acetonide 0.1 % 1 applic topical BID #30 grams 01/20/25 topical cream Allergies Allergy/AdvReac Type Severity Reaction Status Date / Time lisinopril Allergy ADR-Cough Verified 01/09/25 13:30 Review of Systems Const: Denies: fever(s), chills, body aches or change in appetite ENMT: Denies: throat pain or dental pain Card: Denies: chest pain Resp: Denies: dyspnea GI: Denies: abdominal pain, nausea, vomiting or diarrhea Musc: Denies: neck pain or back pain Skin/Breast: Denies: rash Neuro: Denies: headache(s) Psych: Reports: paranoia PFSH ED PFSH: Medical History CAD (coronary artery disease) HFrEF (heart failure with reduced ejection fraction) Right hand pain Trigger finger Moderate tobacco use disorder Panic anxiety syndrome Anxiety Moderate major depression Cannabis use disorder Obesity (BMI 35.0-39.9 without comorbidity) URI (upper respiratory infection) Sinusitis chronic, frontal Allergic rhinitis due to allergen Surgical History Hx of neck surgery two surgeries in mid Social History Smoking and tobacco/nicotine status: former use of tobacco/nicotine Alcohol intake: never Substance/Drug Use: current Substance/Drug use frequency: daily Physical Exam Const: COMMON NORMALS: patient oriented x3 HENMT: COMMON NORMALS: normocephalic and atraumatic HEAD & SCALP: normocephalic and atraumatic Eye: COMMON NORMALS: Equal, round and reactive pupils present and EOMs intact bilaterally PUPIL: Yes Equal, round and reactive pupils present Neck/C-Spine: COMMON NORMALS: full ROM and supple Chest: COMMONS NORMALS: normal inspection of the chest and normal palpation of entire chest wall Resp: COMMON NORMALS: normal respiratory effort, No retractions, No use of accessory muscles and clear to auscultation bilaterally AUSCULTATION: clear to auscultation bilaterally Cardio: COMMON NORMALS: regular rate, regular rhythm and No murmurs present (Cardio) RATE: regular rate RHYTHM: regular rhythm GI: COMMON NORMALS: Normal to inspection, nondistended, normoactive bowel sounds present, Soft to palpation, non-tender and no masses PALPATION: Yes Soft to palpation Extremity: COMMON NORMALS: normal to inspection and full ROM Neuro: COMMON NORMALS: patient oriented x3, moves all extremities and no focal motor deficits Psych: COMMON NORMALS: mental status grossly normal and cooperative THOUGHT PROCESS: Flight of ideas present THOUGHT CONTENT: Yes delusions Skin: COMMON NORMALS: no rashes or lesions noted and no wounds GENERAL SKIN EXAM: no rashes or lesions noted Course Vital Signs: Vital signs: Vital Signs Temperature 98.4 F 02/03/25 19:15 Pulse Rate 126 H 02/03/25 19:15 Respiratory Rate 18 02/03/25 19:15 Blood Pressure 153/79 02/03/25 19:15 Pulse Oximetry 95 02/03/25 19:15 Oxygen Delivery Me thod Room Air 02/03/25 19:15 MDM - Psych Medical Decision Making Patient presents with acute psychosis she was placed on a 6-hour hold she is medically cleared will transfer her due to [facility] availability Medical Records I reviewed the patient's medical records. Lab Data I reviewed the patient's lab results. 02/03/25 19:26 02/03/25 19:26 Radiology Impressions Chest X-Ray 02/03/25 22:15 IMPRESSION: As above. Laboratory Results WBC 7.76 10^3/uL (3.29-11.43) 02/03/25 19: RBC 5.94 10^6/uL (3.85-5.65) H 02/03/25 19:26 Hgb 14.70 g/dL (11.27-16.99) 02/03/25 19: Hct 50.4 % (36-47) H 02/03/25 19: MCV 84.8 fl (85-98) L 02/03/25 19: MCH 24.7 pg (27-33) L 02/03/25 19: MCHC 29.2 g/dL (30-55) L 02/03/25 19: RDW 18.7 % (12.1-15.1) H 02/03/25 19:26 Plt Count 275 10^3/cmm (157-399) 02/03/25 19: MPV 9.6 fL (7.4-10.4) 02/03/25 19: Neut % (Auto) 75.2 % 02/03/25 19:26 Lymph % (Auto) 15.3 % 02/03/25 19: [place] % (Auto) 7.0 % 02/03/25 19:26 Eos % (Auto) 1.9 % 02/03/25 19:26 Baso % (Auto) 0.3 % 02/03/25 19: Neut # (Auto) 5.84 10^3/uL (1.8-7.7) 02/03/25 19: Lymph # (Auto) 1.2 10^3/uL (0.8-4.8) 02/03/25 19: [place] # (Auto) 0.5 10^3/uL (0.2-0.9) 02/03/25 19: Eos # (Auto) 0.2 10^3/uL (0.0-0.8) 02/03/25: Baso # (Auto) 0.0 10^3/uL (0.0-0.1) 02/03/25 19: Nucleated RBC % (auto) 0 % 02/03/25 19: Nucleated RBCs # 0.0 /100WBC 02/03/25 19: Sodium 142 mmol/L (136-145) 02/03/25 19: Potassium 3.8 mmol/L (3.5-5.1) 02/03/25 19: Chloride 102 mmol/L (98-107) 02/03/25 19: Carbon Dioxide 28 mmol/L (22-29) 02/03/25 19: Anion Gap 15.8 (5-19) 02/03/25 19: BUN 16 mg/dL (8-23) 02/03/25 19: Creatinine 0.7 mg/dL (0.5-0.9) 02/03/25 19: GFR Calculation 101.6 mL/min (90-130) 02/03/25 19: Glucose 166 mg/dL (65-115) H 02/03/25 19: Calculated Osmolality 299 mOsm/kg (285-295) H 02/03/25: Calcium 9.1 mg/dL (8.5-10.5) 02/03/25 19: Total Bilirubin 1.9 mg/dL (0.15-1.2) H 02/03/25 19: AST 24 U/L (0-32) 02/03/25 19: ALT 18 U/L (0-33) 02/03/25 19: Alkaline Phosphatase 148 U/L (35-105) H 02/03/25 19: Total Protein 7.5 g/dL (6.6-8.7) 02/03/25: Albumin 3.5 g/dL (3.5-5.2) 02/03/25: Globulin 4.0 g/dL (1.3-4.6) 02/03/25: TSH 3.77 uIU/mL (0.27-4.20) 02/03/25 19: Urine Color [place] (Yellow) A 02/03/25 22:10 Urine Appearance Turbid (CLEAR) A 02/03/25 22:10 Urine pH 5.5 (5-7) 02/03/25 22:10 Ur Specific [place] 1.029 (1.005-1.030) 02/03/25 22:10 Urine Protein 1+ (Negative) A 02/03/25 22:10 Urine Glucose (UA) Negative (Normal) 02/03/25 22:10 Urine Ketones Trace (Negative) 02/03/25 22:10 Urine Blood Trace (Negative) A 02/03/25 22:10 Urine Nitrate Positive (Negative) A 02/03/25 22:10 Urine Bilirubin 2+ (Negative) H 02/03/25 22:10 Urine Urobilinogen 1.0 mg/dL (Negative) 02/03/25 22:10 Ur Leukocyte Esterase 2+ (Negative) A 02/03/25 22:10 Urine RBC 3-5 /hpf (0-2) 02/03/25 22:10 Urine WBC 10-15 /hpf (0-5) H 02/03/25 22:10 Ur Squamous Epith Cells 3-5 /hpf (0-5) 02/03/25 22:10 Amorphous Sediment Not Reportable 02/03/25 22:10 Urine Bacteria Many /hpf (NONE) 02/03/25 22:10 Salicylates < 0.3 mg/dL (3-10) L 02/03/25 19:26 Urine Opiates Screen Negative ng/mL (Negative) 02/03/25 22:10 Acetaminophen < 5.0 ug/mL (10-30) L 02/03/25 19:26 Ur Barbiturates Screen Negative ng/mL (Negative) 02/03/25 22:10 Ur Phencyclidine Scrn Negative ng/mL (Negative) 02/03/25 22:10 Ur Amphetamines Screen Negative ng/mL (Negative) 02/03/25 22:10 U Benzodiazepines Scrn Negative ng/mL (Negative) 02/03/25 22:10 Urine Cocaine Screen Negative ng/mL (Negative) 02/03/25 22:10 U Marijuana (THC) Screen Positive ng/mL (Negative) H 02/03/25 22:10 Ethyl Alcohol < 10 mg/dL (0-10) 02/03/25 19:26 Influenza A (PCR) Negative (Negative) 02/03/25 19:27 Influenza Type B (PCR) Negative (Negative) 02/03/25 19:27 RSV (PCR) Negative (Negative) 02/03/25 19:27 SARS-CoV-2 (PCR) Negative (Negative) 02/03/25 19:27 No radiology studies performed this visit EKG Data EKG 1: I personally reviewed and interpreted this EKG as follows: EKG interpretation date: 02/03/25 EKG interpretation time: 22:08 Interpretation: sinus tach hr [address] elevation qrs 88 qtc 370 Discharge Plan Discharge Patient Disposition: Xfer Psychiatric Hosp Clinical Impression: Acute psychosis, Cystitis Condition: Stable Referrals: Jose Pelayo MD [Primary Care Provider, Family Practice] Print Language: Kazakh Coding Level of Care Code ED Transcribing Operator Head for Chg Fwd Documented by User: Binh Ward DO 02/04/25 10:41 HPI - Psych General: Chief Complaint: Psychiatric Symptoms Stated Complaint: 96 HOUR HOLD Time Seen by Provider: 02/03/25 19:00 Related Data Home Medications ?Medication ?Instructions ?Recorded ?Confirmed loratadine 10 mg tablet (Claritin) 10 mg PO DAILY 08/30/24 01/09/25 cyclobenzaprine 10 mg tablet 10 mg PO TID PRN muscle spasms 01/09/25 01/09/25 nitroglycerin 0.4 mg sublingual See Rx Instructions .Route .COMPLEX 01/09/25 01/09/25 tablet potassium chloride 10 mEq 10 meq PO DAILY PRN lasix use 01/09/25 01/09/25 tablet,extended release Previous Rx's ?Medication ?Instructions ?Recorded acetaminophen 500 mg tablet 1,000 mg (2 x 500 mg) PO Q8H PRN 01/04/23 (Tylenol Extra Strength) pain #30 tabs sertraline 50 mg tablet 50 mg PO DAILY #90 tabs 09/22/24 albuterol sulfate 90 mcg/actuation 2 puff inhalation Q6H PRN 10/11/24 aerosol inhaler shortness of breath or wheezing #8.5 grams aspirin 81 mg tablet,delayed 81 mg PO DAILY 30 days #30 tabs 11/25/24 release clopidogrel 75 mg tablet 75 mg PO DAILY #90 tabs 12/07/24 sacubitril 49 mg-valsartan 51 mg 1 tab PO BID #180 tabs 12/07/24 tablet atorvastatin 40 mg tablet 40 mg PO BEDTIME #90 tabs 01/02/25 carvedilol 12.5 mg tablet 12.5 mg PO BID #180 tabs 01/02/25 furosemide 20 mg tablet (Lasix) 20 mg PO DAILY #5 tabs 01/20/25 triamcinolone acetonide 0.1 % 1 applic topical BID #30 grams 01/20/25 topical cream Allergies Allergy/AdvReac Type Severity Reaction Status Date / Time lisinopril Allergy ADR-Cough Verified 01/09/25 13:30 [facility] ED PFSH: Medical History CAD (coronary artery disease) HFrEF (heart failure with reduced ejection fraction) Right hand pain Trigger finger Moderate tobacco use disorder Panic anxiety syndrome Anxiety Moderate major depression Cannabis use disorder Obesity (BMI 35.0-39.9 without comorbidity) URI (upper respiratory infection) Sinusitis chronic, frontal Allergic rhinitis due to allergen Surgical History Hx of neck surgery two surgeries in mid 1999' Social History Smoking and tobacco/nicotine status: former use of tobacco/nicotine Alcohol intake: never Substance/Drug Use: current Substance/Drug use frequency: daily Course Vital Signs: Vital signs: Vital Signs Temperature 98.4 F 02/03/25 19:15 Pulse Rate 126 H 02/03/25 19:15 Respiratory Rate 18 02/03/25 19:15 Blood Pressure 153/79 02/03/25 19:15 Pulse Oximetry 95 02/03/25 19:15 Oxygen Delivery Me thod Room Air 02/03/25 19:15 MDM - Psych Medical Decision Making Patient presents with acute psychosis she was placed on a 6-hour hold she is medically cleared will transfer her due to [facility] availability Care assumed at change of shift discussed with Dr. Miles and Leonardo. They will accept the patient. She does have a mild cystitis given a gram Rocephin here should be on Keflex 500 mg 3 times a day for 7 days beyond this is medically cleared for transfer Lab Data 02/03/25 19:26 02/03/25 19:26 Radiology Impressions Chest X-Ray 02/03/25 22:15 IMPRESSION: As above. Laboratory Results WBC 7.76 10^3/uL (3.29-11.43) 02/03/25 19: RBC 5.94 10^6/uL (3.85-5.65) H 02/03/25 19:26 Hgb 14.70 g/dL (11.27-16.99) 02/03/25 19: Hct 50.4 % (36-47) H 02/03/25 19: MCV 84.8 fl (85-98) L 02/03/25 19: MCH 24.7 pg (27-33) L 02/03/25 19: MCHC 29.2 g/dL (30-55) L 02/03/25 19: RDW 18.7 % (12.1-15.1) H 02/03/25 19:26 Plt Count 275 10^3/cmm (157-399) 02/03/25 19: MPV 9.6 fL (7.4-10.4) 02/03/25 19: Neut % (Auto) 75.2 % 02/03/25 19: Lymph % (Auto) 15.3 % 02/03/25 19: [place] % (Auto) 7.0 % 02/03/25 19: Eos % (Auto) 1.9 % 02/03/25 19: Baso % (Auto) 0.3 % 02/03/25: Neut # (Auto) 5.84 10^3/uL (1.8-7.7) 02/03/25 19: Lymph # (Auto) 1.2 10^3/uL (0.8-4.8) 02/03/25: [place] # (Auto) 0.5 10^3/uL (0.2-0.9) 02/03/25: Eos # (Auto) 0.2 10^3/uL (0.0-0.8) 02/03/25: Baso # (Auto) 0.0 10^3/uL (0.0-0.1) 02/03/25 19: Nucleated RBC % (auto) 0 % 02/03/25: Nucleated RBCs # 0.0 /100WBC 02/03/25 19: Sodium 142 mmol/L (136-145) 02/03/25 19: Potassium 3.8 mmol/L (3.5-5.1) 02/03/25 19: Chloride 102 mmol/L (98-107) 02/03/25: Carbon Dioxide 28 mmol/L (22-29) 02/03/25 19: Anion Gap 15.8 (5-19) 02/03/25 19: BUN 16 mg/dL (8-23) 02/03/25 19: Creatinine 0.7 mg/dL (0.5-0.9) 02/03/25 19: GFR Calculation 101.6 mL/min (90-130) 02/03/25 19: Glucose 166 mg/dL (65-115) H 02/03/25 19: Calculated Osmolality 299 mOsm/kg (285-295) H 02/03/25: Calcium 9.1 mg/dL (8.5-10.5) 02/03/25: Total Bilirubin 1.9 mg/dL (0.15-1.2) H 02/03/25 19: AST 24 U/L (0-32) 02/03/25 19: ALT 18 U/L (0-33) 02/03/25 19: Alkaline Phosphatase 148 U/L (35-105) H 02/03/25 19: Total Protein 7.5 g/dL (6.6-8.7) 02/03/25: Albumin 3.5 g/dL (3.5-5.2) 02/03/25: Globulin 4.0 g/dL (1.3-4.6) 02/03/25: TSH 3.77 uIU/mL (0.27-4.20) 02/03/25 19: Urine Color [place] (Yellow) A 02/03/25 22:10 Urine Appearance Turbid (CLEAR) A 02/03/25 22:10 Urine pH 5.5 (5-7) 02/03/25 22:10 Ur Specific [place] 1.029 (1.005-1.030) 02/03/25 22:10 Urine Protein 1+ (Negative) A 02/03/25 22:10 Urine Glucose (UA) Negative (Normal) 02/03/25 22:10 Urine Ketones Trace (Negative) 02/03/25 22:10 Urine Blood Trace (Negative) A 02/03/25 22:10 Urine Nitrate Positive (Negative) A 02/03/25 22:10 Urine Bilirubin 2+ (Negative) H 02/03/25 22:10 Urine Urobilinogen 1.0 mg/dL (Negative) 02/03/25 22:10 Ur Leukocyte Esterase 2+ (Negative) A 02/03/25 22:10 Urine RBC 3-5 /hpf (0-2) 02/03/25 22:10 Urine WBC 10-15 /hpf (0-5) H 02/03/25 22:10 Ur Squamous Epith Cells 3-5 /hpf (0-5) 02/03/25 22:10 Amorphous Sediment Not Reportable 02/03/25 22:10 Urine Bacteria Many /hpf (NONE) 02/03/25 22:10 Salicylates < 0.3 mg/dL (3-10) L 02/03/25 19:26 Urine Opiates Screen Negative ng/mL (Negative) 02/03/25 22:10 Acetaminophen < 5.0 ug/mL (10-30) L 02/03/25 19:26 Ur Barbiturates Screen Negative ng/mL (Negative) 02/03/25 22:10 Ur Phencyclidine Scrn Negative ng/mL (Negative) 02/03/25 22:10 Ur Amphetamines Screen Negative ng/mL (Negative) 02/03/25 22:10 U Benzodiazepines Scrn Negative ng/mL (Negative) 02/03/25 22:10 Urine Cocaine Screen Negative ng/mL (Negative) 02/03/25 22:10 U Marijuana (THC) Screen Positive ng/mL (Negative) H 02/03/25 22:10 Ethyl Alcohol < 10 mg/dL (0-10) 02/03/25 19:26 Influenza A (PCR) Negative (Negative) 02/03/25 19:27 Influenza Type B (PCR) Negative (Negative) 02/03/25 19:27 RSV (PCR) Negative (Negative) 02/03/25 19:27 SARS-CoV-2 (PCR) Negative (Negative) 02/03/25 19:27 Discharge Plan Discharge Patient Disposition: Xfer Psychiatric Hosp Clinical Impression: Acute psychosis, Cystitis Condition: Stable Referrals: Jose Pelayo MD [Primary Care Provider, [facility]] Print Language: Kazakh Coding Level of Care Code ED Transcribing Operator Head for Pedrito Spence
[2025-02-03 19:15] VITALS: BP 153/79; PULSE 126; RESP 18; TEMP 36.9; O2SAT 95; BMI 35.5
[2025-02-03 19:42] LABS: Hematocrit 50.4 % (36-47); Hemoglobin 14.70 g/dL (11.27-16.99); Mean Corpuscular HGB Conc 29.2 g/dL (30-55); Mean Corpuscular Hemoglobin 24.7 pg (27-33); Mean Corpuscular Volume 84.8 fl (85-98); Nucleated Red Blood Cells % 0 %; Platelet Count 275 10^3/cmm (157-399); Red Blood Count 5.94 10^6/uL (3.85-5.65); White Blood Count 7.76 10^3/uL (3.29-11.43)
[2025-02-03 20:11] LABS: Alanine Aminotransferase 18 U/L (0-33); Albumin Level 3.5 g/dL (3.5-5.2); Alkaline Phosphatase 148 U/L (35-105); Anion Gap 15.8 (5-19); Aspartate Amino Transferase 24 U/L (0-32); Blood Urea Nitrogen 16 mg/dL (8-23); Calcium 9.1 mg/dL (8.5-10.5); Carbon Dioxide 28 mmol/L (22-29); Chloride 102 mmol/L (98-107); Creatinine Clr Calc Pharmacy 83.5568; Globulin 4.0 g/dL (1.3-4.6); Glucose 166 mg/dL (65-115); Osmolality Calculated 299 mOsm/kg (285-295); Potassium 3.8 mmol/L (3.5-5.1); Sodium 142 mmol/L (136-145); Total Protein 7.5 g/dL (6.6-8.7)
[2025-02-03 20:15] LABS: Acetaminophen < 5.0 ug/mL (10-30); Alcohol Level < 10 mg/dL (0-10); Salicylate < 0.3 mg/dL (3-10)
[2025-02-03 20:23] LABS: Respiratory Syncytial Virus Ce NEGATIVE (Negative); SARS-CoV-2 PCR NEGATIVE (Negative)
--- NOTE | 2025-02-03 21:52 | PC.NURSE ---
Addendum entered by Bianca Barone RN 02/03/25 21:54: Rights read at 1933 Original Note: 96 Hour Involuntary Hold Patient Rights have been reviewed with the patient and a copy of the same has been provided to her. Bleacher Lard Adan Valdivia was present at bedside during the presentation of Rights.
[2025-02-03] MEDS: HYDROcodone-acetaminophen 7.5-325 mg Tablet 1 TAB PO (21:55)
--- NOTE | 2025-02-03 22:08 | ECG_ITS ---
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 Measurements Intervals [place] Rate: 113 P: 82 MO: 139 QRS: 23 QRSD: 88 T: 55 QT: 303 QTc: 416 Interpretive Statements SINUS TACHYCARDIA POSSIBLE LEFT ATRIAL ENLARGEMENT [-0.1mV P-WAVE IN V1/V2] POSSIBLE OLD ANTERIOR INFARCTION ABNORMAL RHYTHM ECG Compared to ECG 01/09/2025 14:27:09 Sinus rhythm no longer present Electronically Signed On 02-04-2025 21:37:15 CDT by Fernando Phan M.D. [id number]
--- NOTE | 2025-02-03 22:15 | XRR_ITS ---
PROCEDURE INFORMATION: Exam: XR Chest Exam date and time: 02/03/2025 10:20 PM Age: 64 years old Clinical indication: Screening exam; Other screening; Prior surgery; Surgery date: 6+ months; Surgery type: Cervical fusion; Medical clearance for psych transfer. History of chf. TECHNIQUE: Imaging protocol: Radiologic exam of the chest. Views: 1 view. COMPARISON: CR XR chest 1V portable [id number] 01/09/2025 1:32 PM FINDINGS: Lungs: See Pleural spaces finding. Pleural spaces: Retrocardiac opacities reflecting small pleural effusion or adjacent atelectasis. Heart/Mediastinum: Stable cardiomegaly. Bones/joints: Unremarkable. XR/XR chest 1V portable [id number] IMPRESSION: As above.
[2025-02-03 22:29] LABS: PCP Screen Urine Negative (Negative)
[2025-02-04 05:22] LABS: Glucose Urine UA Negative (Normal); Nitrate Urine Positive (Negative); Specific Gravity, Urine 1.029 (1.005-1.030)
[2025-02-04 05:42] LABS: Thyroid Stimulating Hormone 3.77 uIU/mL (0.27-4.20)
--- NOTE | 2025-02-04 05:44 | ECG_ITS ---
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 Measurements Intervals [employer] Rate: 105 P: 82 NV: 144 QRS: 35 QRSD: 89 T: 53 QT: 328 QTc: 435 Interpretive Statements SINUS TACHYCARDIA POSSIBLE LEFT ATRIAL ENLARGEMENT [-0.1mV P-WAVE IN V1/V2] NONSPECIFIC ST & T-WAVE ABNORMALITY Compared to ECG 02/03/2025 22:08:21 NO SIGNIFICANT CHANGE Electronically Signed On 02-04-2025 21:40:30 CDT by Fernando Phan M.D. [id number] [id number]
[2025-02-04 05:52] LABS: Add Urine Microscopic? YES; UA Manual Slide Review YES; UA Slide Review UA Slide Review Perf
--- NOTE | 2025-02-04 05:53 | ECG_ITS ---
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 Measurements Intervals [place] Rate: 106 P: 81 RI: 137 QRS: 28 QRSD: 98 T: 48 QT: 342 QTc: 454 Interpretive Statements SINUS TACHYCARDIA POSSIBLE LEFT ATRIAL ENLARGEMENT [-0.1mV P-WAVE IN V1/V2] NONSPECIFIC ST & T-WAVE ABNORMALITY ABNORMAL RHYTHM ECG Compared to ECG 02/04/2025 05:51:49 No significant changes Electronically Signed On 02-04-2025 21:40:58 CDT by Fernando Phan M.D. [email or web address] [id number]
[2025-02-04 05:54] LABS: Universal Test for UA Present (0)
[2025-02-04 10:47] VITALS: BP 148/73; PULSE 92; O2SAT 95
== END 2025-02-04 12:13 ==
PROVIDERS: Emergency Medicine; Emergency Provider Family Medicine; PCP Family Medicine
DX: F23 Brief psychotic disorder (principal); N30.90 Cystitis, unspecified without hematuria; Z11.52 Encounter for screening for COVID-19; I25.10 Atherosclerotic heart disease of native coronary artery without angina pectoris; I50.20 Unspecified systolic (congestive) heart failure; Z87.891 Personal history of nicotine dependence
CPT/HCPCS: 36415; 71045; 80053; 80306; 80307; 81001; 84443; 85025; 87077; 87086; 87186; 87637; 93005; 99285; J9999

== ENCOUNTER → 2025-05-03 17:24 | Outpatient (BNVA) | payer MEDICARE, SELFPAY | PROVIDERS: PCP Family Medicine; Visit Provider Nurse Practitioner | DX: R82.90 Unspecified abnormal findings in urine (principal); R39.9 Unspecified symptoms and signs involving the genitourinary system | CPT/HCPCS: 81000; 87086 ==